=== PATIENT | female | born 1965 | race Caucasian/White ===

== ENCOUNTER 2018-05-14 17:07 | Inpatient (IN) | payer MEDICAID ==
[~2018-05-14] VITALS: Ht 157.5 cm; Wt 65.8 kg
[~2018-05-14 17:07] MED LIST: BAYER CHEWABLE81 MG PO; BRILINTA90 MG PO; CELEXA20 MG PO; COREG 3.1253.125 MG PO; KLOR-CON M2020 MEQ PO; LASIX80 MG PO; LISINOPRIL2.5 MG PO; METOPROLOL TART50 MG PO; NICODERM C1 PATCH .1 TD; PLAVIX75 MG PO
[2018-05-14] MEDS ORDERED: PROTONIX20 MG PO (17:13)
[2018-05-14] MEDS ORDERED: TRAZODONE HCL150 MG PO (17:13)
[2018-05-14] MEDS ORDERED: CRESTOR5 MG PO (17:13)
[2018-05-14] MEDS ORDERED: VALIUM5 MG PO (17:14)
[2018-05-14] MEDS ORDERED: ATIVAN0.5 MG PO (17:14)
[2018-05-14] MEDS ORDERED: EFFEXOR XR150 MG PO (17:15)
[2018-05-14 18:07] LABS: BASOPHILS 0.6 % (0-2); EOSINOPHILS 1.5 % (0-7); HEMATOCRIT 39.5 % (36.0-48.0); HEMOGLOBIN 13.3 g/dL (12-16); IMMATURE GRANULOCYTES 0.1 % (0-5); LYMPHOCYTES 43.2 % (15-50); MCH 29.3 pg (26.0-34.0); MCHC 33.7 g/dL (31.0-37.0); MEAN PLATELET VOLUME 10.6 fL (7.4-10.4); MONOCYTES 8.9 % (2-11); NEUTROPHILS 45.7 % (40-80); PLATELET COUNT 313 10x3/uL (130-400); RBC 4.54 10x6/uL (4.00-5.40); RDW 14.2 % (11.5-14.5); WBC 6.7 10x3/uL (4.8-10.8)
[2018-05-14 19:00] LABS: ALBUMIN 2.8 g/dL (3.4-5.0); ALKALINE PHOSPHATASE 157 U/L (46-116); ALT (SGPT) 23 U/L (10-68); BILIRUBIN - TOTAL 0.46 mg/dL (0.2-1.3); CALC OSMOLALITY 273 mosm/kg (275-300); CALCIUM 8.9 mg/dL (8.5-10.1); CARBON DIOXIDE 20.8 mmol/L (21.0-32.0); CHLORIDE - SERUM 100 mmol/L (98-107); CREATININE - SERUM 0.6 mg/dL (0.6-1.3); GLUCOSE 131 mg/dL (74-106); POTASSIUM - SERUM 3.5 mmol/L (3.5-5.1); PROTEIN - SERUM 7.7 g/dL (6.4-8.2); SODIUM 137 mmol/L (136-145); UREA NITROGEN 7 mg/dL (7-18); eGFR NON AFRICAN AMERICAN > 90 mL/min (90-120)
--- NOTE | 2018-05-14 19:00 | NUR ---
HAND-OFF REPORT GIVEN TO KATHLEEN MEJIAS
[2018-05-14 19:05] LABS: AMYLASE - SERUM 40 U/L (25-115); LIPASE 289 U/L (73-393); TROPONIN-I 0.019 ng/mL (0.000-0.060)
--- NOTE | 2018-05-14 20:16 | NUR ---
PT GIVEN WARM BLANKETS. AT BEDSIDE. WILL CONTINUE TO MONITOR.
[2018-05-14 21:01] LABS: CHOL - HDL RATIO 2.5 ratio (2.3-4.1)
[2018-05-15] VITALS (7 sets, daily range): BP systolic 116–136; BP diastolic 74–92; Ht 157.5 cm; Wt 65.8 kg
--- NOTE | 2018-05-15 05:20 | NUR ---
I have reviewed this patient and I concur with the Shift Assessment completed by the Licensed Practical Nurse today this shift.
--- NOTE | 2018-05-15 08:14 | NUR ---
PATIENT A/O X3. C/O INTENSE PAIN TO UPPER ABDOMEN. GIVEN 4MG MORPHINE SLOW IVP FOR SAME. WILL MONITOR. HAD APPROXIMATELY 50 CC EMESIS.
--- NOTE | 2018-05-15 11:06 | NUR ---
PT REFUSED ALL NEW ORDERED MEDS. STATES SHE WILL JUST THROW THEM UP. PT NOTED THROWING UP CLEAR/GREEN EMESIS. ZOFRAN GIVEN IV. NICOTINE PATCH TO R SHOULDER. CPOC.
--- NOTE | 2018-05-15 11:32 | NUR ---
PT SITTING UP IN BED. A/O X 4. UP AB NBA. L AC IV WITH NS @ 125. RM AIR. NORMAL SINUS ON TELE. INFORMED PT THAT WHEN SHE WENT TO THE BATHROOM, WE NEEDED A URINE SAMPLE, TO NOT DUMP HER URINE IN COMMODE. ZOFRAN GIVEN FOR NAUSEA. GREEN/CLEAR EMESIS NOTED. ZOFRAN GIVEN. NO EDEMA NOTED. BS 126, NO TREATMENT. WILL CPOC.
--- NOTE | 2018-05-15 12:27 | NUR ---
PT C/O PAIN IN ABD. STATES " IF FEELS LIKE SOMEONE IS DIGGING THEIR HANDS UNDER MY RIBS" MORPHINE GIVEN VIA IV IN L AC. PT NOTED DRY HEAVING. SAT PT UP IN BED SO SHE WOULDNT ASPIRATE. AT BEDSIDE.
[2018-05-15 12:46] LABS: UDS - AMPHET NEGATIVE QUAL (NEGATIVE); UDS - BARB NEGATIVE QUAL (NEGATIVE); UDS - BENZO POSITIVE QUAL (NEGATIVE); UDS - COCAINE NEGATIVE QUAL (NEGATIVE); UDS - OPIATE POSITIVE QUAL (NEGATIVE); UDS - PCP NEGATIVE QUAL (NEGATIVE); UDS - THC NEGATIVE QUAL (NEGATIVE)
[2018-05-15 12:52] LABS: APPEARANCE HAZY (CLEAR); BILIRUBIN NEGATIVE (NEGATIVE); COLOR YELLOW (YELLOW); GLUCOSE NEGATIVE (NEGATIVE); KETONE LARGE mg/dL (NEGATIVE); NITRITE NEGATIVE (NEGATIVE); PROTEIN 1+ mg/dL (NEGATIVE); SPECIFIC GRAVITY 1.015 (1.005-1.020); UROBILINOGEN NORMAL (NORMAL)
[2018-05-15 12:54] LABS: BACTERIA MODERATE /hpf (NONE SEEN); EPITHELIAL CELLS 0-5 /hpf (0-5); MUCUS <1+ /lpf (NONE SEEN); RED CELLS - URINE 0-5 /hpf (0-5); WHITE CELLS - URINE 0-5 /hpf (0-5)
--- NOTE | 2018-05-15 15:40 | NUR ---
PT REFUSES SCDS
--- NOTE | 2018-05-15 18:33 | NUR ---
I have reviewed this patient and I concur with the Shift Assessment completed by the Licensed Practical Nurse today this shift.
--- NOTE | 2018-05-15 19:17 | NUR ---
PT IN BED. DENIES NEEDS AT THIS TIME.
[2018-05-16] VITALS: BP 131/82
--- NOTE | 2018-05-16 01:19 | NUR ---
I have reviewed this patient and I concur with the Shift Assessment completed by the Licensed Practical Nurse today this shift.
[2018-05-16 04:00] VITALS: BP 143/85
[2018-05-16 06:43] LABS: CALCIUM 7.8 mg/dL (8.5-10.1); CARBON DIOXIDE 23.2 mmol/L (21.0-32.0); CHLORIDE - SERUM 104 mmol/L (98-107); CREATININE - SERUM 0.5 mg/dL (0.6-1.3); GLUCOSE 125 mg/dL (74-106); LIPASE 269 U/L (73-393); SODIUM 138 mmol/L (136-145); eGFR NON AFRICAN AMERICAN > 90 mL/min (90-120)
[2018-05-16 06:49] LABS: CALC OSMOLALITY 273 mosm/kg (275-300); POTASSIUM - SERUM 4.2 mmol/L (3.5-5.1); UREA NITROGEN 4 mg/dL (7-18)
[2018-05-16 07:08] LABS: HEMATOCRIT 35.7 % (36.0-48.0); HEMOGLOBIN 12.2 g/dL (12-16); MCH 29.9 pg (26.0-34.0); MCHC 34.2 g/dL (31.0-37.0); MCV 87.5 fL (80.0-100.0); MEAN PLATELET VOLUME 11.4 fL (7.4-10.4); PLATELET COUNT 300 10x3/uL (130-400); RBC 4.08 10x6/uL (4.00-5.40); RDW 14.9 % (11.5-14.5); WBC 5.8 10x3/uL (4.8-10.8)
--- NOTE | 2018-05-16 07:23 | NUR ---
PT LAYING IN BED RESTING. STATES SHE FEELS BETTER THIS MORNING. C/O BEING STUCK BY LAB MULTIPLE TIMES. NO COMPLAINTS OF N/V. IV TO L AC WITH MORPHINE BEACH EXPERT, PROCAL @ 50, NS @ 100. NO EDEMA NOTED. PT STILL REMAINS NPO. NO FURTHER CONCERNS AT THIS TIME. BED LOWERED AND LOCKED. CL IN REACH. WILL CPOC.
[2018-05-16 07:52] LABS: BASOPHILS 2 % (0-2); EOSINOPHILS 1 % (0-7); LYMPHOCYTES 43 % (15-50); MONOCYTES 7 % (2-11); NEUTROPHILS 47 % (40-80); PLATELET ESTIMATE NORMAL
[2018-05-16 08:00] VITALS: BP 139/72
--- NOTE | 2018-05-16 10:06 | NUR ---
ATIVAN GIVEN TO PT FOR ANXIETY. TOOK MEDS WITHOUT DIFFICULTY. NO FURTHER CONCERNS AT THIS TIME.
[2018-05-16 11:30] VITALS: BP 145/86
--- NOTE | 2018-05-16 12:00 | NUR ---
PT C/O NAUSEA/VOMITTING. PHENERGAN IM GIVEN TO L VENTROGLUTEAL.
--- NOTE | 2018-05-16 13:44 | NUR ---
I have reviewed this patient and I concur with the Shift Assessment completed by the Licensed Practical Nurse today this shift.
--- NOTE | 2018-05-16 15:24 | NUR ---
PT LAYING IN BED RESTING. DENIES N/V AT THIS TIME. FAMILY AT BEDSIDE. NO FURTHER CONCERNS AT THIS TIME. BED LOWERED AND LOCKED. CL IN REACH. WILL CPOC.
[2018-05-16 16:22] VITALS: BP 171/102
--- NOTE | 2018-05-16 19:23 | NUR ---
GREETED PATIENT AND INTRODUCED MYSELF HER NURSE. PATIENT IS LAYING IN BED RESTING QUIETLY. STATES PAIN LEVEL IS 4/10 ON 0-10 PAIN SCALE ENTIRE ABDOMINAL AREA.
[2018-05-16 19:38] VITALS: BP 147/93
--- NOTE | 2018-05-16 23:07 | NUR ---
PATIENT RESTING QUIETLY WATCHING TV. DENIES ANY NEEDS AT THIS TIME. CALL LIGHT IN REACH.
[2018-05-17] VITALS (7 sets, daily range): BP systolic 128–173; BP diastolic 72–95
--- NOTE | 2018-05-17 02:22 | NUR ---
ASSISTED PATIENT TO BATHROOM USING ONE PERSON ASSIST. PATIENT BACK TO BED AND REPOSITIONED FOR COMFORT. CALL LIGHT IN REACH.
[2018-05-17 12:18] LABS: BASOPHILS 0.5 % (0-2); EOSINOPHILS 2.6 % (0-7); HEMATOCRIT 35.2 % (36.0-48.0); HEMOGLOBIN 11.6 g/dL (12-16); LYMPHOCYTES 30.4 % (15-50); MEAN PLATELET VOLUME 10.3 fL (7.4-10.4); MONOCYTES 7.8 % (2-11); NEUTROPHILS 58.7 % (40-80); PLATELET COUNT 255 10x3/uL (130-400); RDW 14.5 % (11.5-14.5); WBC 5.5 10x3/uL (4.8-10.8)
[2018-05-17 12:29] LABS: CALC OSMOLALITY 273 mosm/kg (275-300); CALCIUM 8.2 mg/dL (8.5-10.1); CARBON DIOXIDE 22.3 mmol/L (21.0-32.0); CHLORIDE - SERUM 102 mmol/L (98-107); CREATININE - SERUM 0.5 mg/dL (0.6-1.3); GLUCOSE 149 mg/dL (74-106); LIPASE 252 U/L (73-393); SODIUM 137 mmol/L (136-145); UREA NITROGEN 3 mg/dL (7-18); eGFR NON AFRICAN AMERICAN > 90 mL/min (90-120)
[2018-05-17 12:33] LABS: POTASSIUM - SERUM 3.2 mmol/L (3.5-5.1)
--- NOTE | 2018-05-17 17:56 | NUR ---
PT. IN BED, SKIN W/D TO TOUCH, COLOR PINK, RESP. REGULAR AND EVEN AT 18. IV INFUSING NORMAL SALINE AT 100 AND PROCALAMINE INFUSING AT 50. TELEMTRY INTACT AND SR'S 72.LAST BLOOD SUGAR WAS 132. ABDOMEN SOFT, PT. REMAINS NPO. ASSAULT AMPHIBIOUS VEHICLE OFFICER MORPHINE HOLDING PT. WELL. C/L WITHIN REACH AND SR'S UP X'S 2.
--- NOTE | 2018-05-17 21:10 | NUR ---
REST IN BED, DENIES NEEDS AT THIS TIME, CALL LIGHT IN REACH.
--- NOTE | 2018-05-18 01:43 | NUR ---
REST IN BED, RESP EVEN, NO DISTRESS, CALL LIGHT IN REACH.
[2018-05-18 04:00] VITALS: BP 132/86
--- NOTE | 2018-05-18 06:23 | NUR ---
I have reviewed this patient and I concur with the Shift Assessment completed by the Licensed Practical Nurse today this shift.
[2018-05-18 08:45] LABS: BASOPHILS 0.2 % (0-2); EOSINOPHILS 3.2 % (0-7); HEMATOCRIT 34.6 % (36.0-48.0); HEMOGLOBIN 11.4 g/dL (12-16); IMMATURE GRANULOCYTES 0.2 % (0-5); MCH 28.9 pg (26.0-34.0); MCHC 32.9 g/dL (31.0-37.0); MCV 87.8 fL (80.0-100.0); MEAN PLATELET VOLUME 10.1 fL (7.4-10.4); MONOCYTES 6.3 % (2-11); NEUTROPHILS 53.1 % (40-80); PLATELET COUNT 257 10x3/uL (130-400); RBC 3.94 10x6/uL (4.00-5.40); RDW 14.2 % (11.5-14.5); WBC 4.9 10x3/uL (4.8-10.8)
[2018-05-18 09:02] LABS: CALC OSMOLALITY 270 mosm/kg (275-300); CALCIUM 8.1 mg/dL (8.5-10.1); CARBON DIOXIDE 23.1 mmol/L (21.0-32.0); CHLORIDE - SERUM 102 mmol/L (98-107); CREATININE - SERUM 0.4 mg/dL (0.6-1.3); GLUCOSE 139 mg/dL (74-106); POTASSIUM - SERUM 3.3 mmol/L (3.5-5.1); SODIUM 136 mmol/L (136-145); eGFR NON AFRICAN AMERICAN > 90 mL/min (90-120)
[2018-05-18 09:08] LABS: UREA NITROGEN 4 mg/dL (7-18)
[2018-05-18 09:12] VITALS: BP 143/87
--- NOTE | 2018-05-18 11:17 | NUR ---
PT REQ AND REC'D PRN ATIVAN FOR ANXIETY AT THIS TIME. WCTM.
[2018-05-18 12:30] VITALS: BP 136/85
--- NOTE | 2018-05-18 12:44 | MORECARE ---
CASE MANAGEMENT DISCHARGE SUMMARY PATIENT: MIC RIVERA UNIT: [id number] ADM DATE: 05/14/18 AGE: 52 : 65 SEX: F ROOM/BED: D.1202 AUTHOR: DRISS WHITTEN PHYSICIAN: REFERRING PHYSICIAN: DELILAH WILLIAM MD DATE OF SERVICE: 05/18/18 Discharge Plan Patient Name: MIC RIVERA [facility] [facility] 1965 Planned Disposition: Home Anticipated Discharge Date: Discharge Date: Expected LOS: Initial Reviewer: [email or web address] Initial Review Date: 05/18/2018 Generated: 05/18/18 1:44 pm DCPIA - Discharge Planning Initial Assessment Updated by [id number]: Radha Arias on 05/18/18 12:44 pm * Is the patient Alert and Oriented? Yes * PCP [facility] * Pharmacy [facility] * Preadmission Environment Home with Family * ADLs Independent * Equipment None * List name and contact numbers for known caregivers / representatives who currently or will assist patient after discharge: JUANSHINE, [phone] * Community resources currently utilized None * Additional services required to return to the preadmission environment? No * Can the patient safely return to the preadmission environment? Yes * Has this patient been hospitalized within the prior 30 days at any hospital? Yes Patient Name: MIC RIVERA Page [phone] at 1244 All edits/amendments must be made on the electronic document DICTATION DATE: 05/18/18 124 PERSONAL PROPERTY ASSESSOR: NICHELLE 05/18/18 1244 RPT#: [id number] DC DATE: STATUS: ADM IN [facility] [address] [place] [address] END OF REPORT
--- NOTE | 2018-05-18 12:53 | MORECARE ---
CASE MANAGEMENT DISCHARGE SUMMARY PATIENT: MIC RIVERA UNIT: [id number] ADM DATE: 05/14/18 AGE: 52 : 65 SEX: F ROOM/BED: D.1202 AUTHOR: DRISS WHITTEN PHYSICIAN: REFERRING PHYSICIAN: DELILAH WILLIAM MD DATE OF SERVICE: 05/18/18 Discharge Plan Patient Name: MIC RIVERA Facility: [facility]:[place] : 1965 Planned Disposition: Home Anticipated Discharge Date: Discharge Date: Expected LOS: Initial Reviewer: [email or web address] Initial Review Date: 05/18/2018 Generated: 05/18/18 1:52 pm Comments DCP- Discharge Planning Updated by [email or web address]: Radha Arias on 05/18/18 11:[address] Patient Name: MIC RIVERA Admission Status: ER Accout number: [id number] Admission Date: 05-14-2018 : 1965 Admission Diagnosis: Attending: DELILAH WILLIAM Current LOS: 4 Anticipated DC Date: Planned Disposition: Home Primary Insurance: [employer] PRVT OPTIONS MONSTER Discharge Planning Comments: CM MET WITH PATIENT ABOUT DC PLANNING/NEEDS. STATES PLANS TO DC TO HOME WITH . DENIES NEEDS AT THIS TIME. CM WILL FOLLOW AND ASSIST NEEDED WITH DC PLANNING/NEEDS. Inseam Trimming Machine Operator: Radha Arias DCPIA - Discharge Planning Initial Assessment Updated by [email or web address]: Radha Arias on 05/18/18 12:44 pm * Is the patient Alert and Oriented? Yes * PCP [facility] * [facility] * Preadmission Environment Home with Family * ADLs Independent * Equipment None * List name and contact numbers for known caregivers / representatives who currently or will assist patient after discharge: JUAN, [phone] * Community resources currently utilized None * Additional services required to return to the preadmission environment? No * Can the patient safely return to the preadmission environment? Yes * Has this patient been hospitalized within the prior 30 days at any hospital? Yes Last DP export: 05/18/18 11:44 a Patient Name: MIC RIVERA Page [phone] at 1253 All edits/amendments must be made on the electronic document DICTATION DATE: 05/18/18 125 CAFE SERVER: NICHELLE 05/18/18 125 RPT#: [id number] CO DATE: STATUS: ADM IN [facility] [address] [place] [address] END OF REPORT
--- NOTE | 2018-05-18 14:34 | NUR ---
Pt remain NPO >/=3days Pt is on procalamine @50 providing 294 calories and 35gm protein REC: May want to consider TPN to better meet pt nutrition needs RD following
--- NOTE | 2018-05-18 16:55 | NUR ---
ATTEMPTED TO REPLACE POTASSIUM WITH 10MEQ/100 ML RIDERS BUT PATIENT WILL NOT TOLERATE IV POTASSIUM. REPORTS BAD BURNING AND REFUSES. SAYS SHE WOULD RATHER TRY PO K+.
[2018-05-18 17:18] VITALS: BP 156/78
--- NOTE | 2018-05-18 19:50 | NUR ---
LYING IN BED WATCHING TV. ANXIOUS AND RESTLESS. STATES SHE IS HURTING BAD AND IS NAUSEATED. WHEN GOING BACK INTO ROOM TO GIVE ZOFRAN, PT STATES THE DR TOLD HER SHE COULD HAVE PHENERGAN. STATES SHE VOMITED GREEN EMESIS TODAY. RESP EVEN AND NONLABORED. ABD DISTENDED BUT SOFT. BS HYPOACTIVE X4 QUADS. TELEMETRY SHOWS SR WITH RATE OF 90'S. NS @ 100 ML/HR INFUSING IN LT AC WITH PROCAL @ 75 ML/HR AND MORPHINE TECHNICIAN. SR ELEVATED X2. CL IN REACH.
[2018-05-18 20:00] VITALS: BP 139/85
--- NOTE | 2018-05-18 22:50 | NUR ---
MEDICATED WITH PHENERGAN SUPP FOR NAUSEA. PT HAD REFUSED KCL RIDERS BECAUSE SHE STATED THAT IT HURT TOO BAD. PT IS NPO AND CANNOT TAKE PO KCL.
[2018-05-19] VITALS: BP 150/84
--- NOTE | 2018-05-19 01:46 | NUR ---
RESTING WITH EYES CLOSED. RESP EVEN AND NONLABORED. NO DISTRESS. CL IN REACH.
[2018-05-19 04:30] VITALS: BP 133/86
[2018-05-19 07:00] LABS: BASOPHILS 0.5 % (0-2); EOSINOPHILS 3.8 % (0-7); HEMATOCRIT 35.1 % (36.0-48.0); HEMOGLOBIN 11.7 g/dL (12-16); IMMATURE GRANULOCYTES 0.3 % (0-5); LYMPHOCYTES 47.1 % (15-50); MCH 28.8 pg (26.0-34.0); MCHC 33.3 g/dL (31.0-37.0); MCV 86.5 fL (80.0-100.0); MEAN PLATELET VOLUME 9.8 fL (7.4-10.4); MONOCYTES 9.5 % (2-11); NEUTROPHILS 38.8 % (40-80); PLATELET COUNT 244 10x3/uL (130-400); RBC 4.06 10x6/uL (4.00-5.40); RDW 14.3 % (11.5-14.5); WBC 3.9 10x3/uL (4.8-10.8)
[2018-05-19 07:22] LABS: CALC OSMOLALITY 272 mosm/kg (275-300); CALCIUM 7.9 mg/dL (8.5-10.1); CHLORIDE - SERUM 102 mmol/L (98-107); CREATININE - SERUM 0.4 mg/dL (0.6-1.3); GLUCOSE 130 mg/dL (74-106); POTASSIUM - SERUM 3.4 mmol/L (3.5-5.1); SODIUM 137 mmol/L (136-145); UREA NITROGEN 3 mg/dL (7-18); eGFR NON AFRICAN AMERICAN > 90 mL/min (90-120)
--- NOTE | 2018-05-19 07:30 | NUR ---
INITIAL ROUNDING ON THE PATIENT, CAREGIVERS INTRODUCED. PATIENT REQUESTING ZOFRAN AND REPORTS PAIN OF 8/10 IN UPPER ABD. EYEWEAR MANUFACTURING TECH INFUSING.
[2018-05-19 08:25] VITALS: BP 127/82
--- NOTE | 2018-05-19 10:56 | NUR ---
DISCUSSED THE PATIENTS MEDICATION LIST INCLUDING COREG, PLAVIX, ASA AMONG OTHERS ORDERED. CONCERNED THE PATIENT HAS BEEN NPO SINCE 05/[address] GONZALES ORDERED TO KEEP THE PATIENT NPO INCLUDING MEDICATIONS. ALSO INFORMED THE DOCTOR OF THE PATIENTS K+ LEVEL OF 3.4 AND THE FACT THE PATIENT REFUSES IVPB RIDER OF K+.
[2018-05-19 12:08] VITALS: BP 156/89
[2018-05-19 16:45] VITALS: BP 158/91
[2018-05-19 20:00] VITALS: BP 138/88
--- NOTE | 2018-05-19 23:29 | NUR ---
1945) REC'D. CHGE OF SHIFT IN BATHROOM. RATING ABDOMINAL PAIN 10 ALL DAY. DENIES NAUSEA AT PRESENT TIME. ABD DISTENDED BUT PALABLE BOWEL SOUNDS ALL QUAD.REINFORCED NPO WAS REQUIRING ABOUT ORAL MEDS.WILL CONTINUE TO MONITOR FOR ANY CHGES AND FOLLOW CURRENT PLAN OF CARE
[2018-05-20] VITALS: BP 141/81
--- NOTE | 2018-05-20 02:49 | NUR ---
I have reviewed this patient and I concur with the Shift Assessment completed by the Licensed Practical Nurse today this shift.
[2018-05-20 04:00] VITALS: BP 147/98
--- NOTE | 2018-05-20 07:07 | NUR ---
INITIAL ROUNDING ON THE PATIENT, SHE IS RESTING IN BED, MORPHINE COAL CHUTE WORKER INFUSING WELL PROCAL, AND NS. PATIENT REPORTS PAIN OF 3/10. NO SOB NOTED.
[2018-05-20 08:42] LABS: BASOPHILS 0.2 % (0-2); HEMATOCRIT 38.1 % (36.0-48.0); IMMATURE GRANULOCYTES 0.2 % (0-5); LYMPHOCYTES 39.5 % (15-50); MCH 29.2 pg (26.0-34.0); MCHC 34.1 g/dL (31.0-37.0); MCV 85.6 fL (80.0-100.0); MEAN PLATELET VOLUME 10.1 fL (7.4-10.4); MONOCYTES 9.6 % (2-11); NEUTROPHILS 48.5 % (40-80); RBC 4.45 10x6/uL (4.00-5.40); RDW 14.5 % (11.5-14.5); WBC 4.5 10x3/uL (4.8-10.8)
[2018-05-20 08:47] LABS: PLATELET COUNT 172 10x3/uL (130-400)
[2018-05-20 09:00] LABS: CALC OSMOLALITY 267 mosm/kg (275-300); CALCIUM 8.3 mg/dL (8.5-10.1); CARBON DIOXIDE 18.9 mmol/L (21.0-32.0); CHLORIDE - SERUM 101 mmol/L (98-107); CREATININE - SERUM 0.3 mg/dL (0.6-1.3); GLUCOSE 136 mg/dL (74-106); POTASSIUM - SERUM 3.6 mmol/L (3.5-5.1); SODIUM 135 mmol/L (136-145); eGFR NON AFRICAN AMERICAN > 90 mL/min (90-120)
[2018-05-20 09:06] LABS: UREA NITROGEN 2 mg/dL (7-18)
[2018-05-20 12:37] VITALS: BP 137/72
--- NOTE | 2018-05-20 14:53 | NUR ---
Nutrition Follow Up: Chart reviewed. Pt is NPO x 6 days. BM: 05/17/18 Wt loss noted Labs reviewed Meds noted including Procalamine @ 50 ml/hr Rec advancing WALTER as soon as medically feasible. Rec consider increasing Procalamine to 75 ml/hr. RD following.
[2018-05-20 18:55] VITALS: BP 144/88
--- NOTE | 2018-05-20 22:43 | NUR ---
NG TUBE #[address] WITH ONE TRY AND PT IS ON LOW INTERMITTEN SUCTION PER MD ORDERSL SHE WAS GIVEN ATIVAN PRIOR TO INSERTION AND DID WELL. SHE REFUSED INSULIN FOR HER BLOOD SUGAR WHICH WAS 152 AND SHOULD HAVE BEEN 2 UNITS BUT SHE IS NPO AT THIS TIME.
[2018-05-21 00:17] VITALS: BP 143/92
[2018-05-21 05:30] VITALS: BP 145/87
[2018-05-21 06:24] LABS: BASOPHILS 0.2 % (0-2); EOSINOPHILS 2.5 % (0-7); HEMOGLOBIN 11.9 g/dL (12-16); LYMPHOCYTES 30.5 % (15-50); MCH 28.9 pg (26.0-34.0); MONOCYTES 9.9 % (2-11); NEUTROPHILS 56.9 % (40-80); RBC 4.12 10x6/uL (4.00-5.40); RDW 14.4 % (11.5-14.5); WBC 4.9 10x3/uL (4.8-10.8)
[2018-05-21 06:29] LABS: PLATELET COUNT 260 10x3/uL (130-400)
[2018-05-21 06:49] LABS: ALBUMIN 2.5 g/dL (3.4-5.0); ALKALINE PHOSPHATASE 131 U/L (46-116); ALT (SGPT) 19 U/L (10-68); BILIRUBIN - DIRECT 0.18 mg/dL (0.00-0.30); BILIRUBIN - INDIRECT 0.26 mg/dL (0.00-1.00); BILIRUBIN - TOTAL 0.44 mg/dL (0.2-1.3); CALC OSMOLALITY 269 mosm/kg (275-300); CALCIUM 8.2 mg/dL (8.5-10.1); CARBON DIOXIDE 19.9 mmol/L (21.0-32.0); CHLORIDE - SERUM 101 mmol/L (98-107); CREATININE - SERUM 0.4 mg/dL (0.6-1.3); GLUCOSE 153 mg/dL (74-106); LIPASE 278 U/L (73-393); SODIUM 135 mmol/L (136-145); UREA NITROGEN 4 mg/dL (7-18); eGFR NON AFRICAN AMERICAN > 90 mL/min (90-120)
[2018-05-21 06:50] LABS: POTASSIUM - SERUM 2.9 mmol/L (3.5-5.1)
--- NOTE | 2018-05-21 07:00 | NUR ---
INITIAL ROUNDING ON THE PATIENT, SHE IS RESTING IN BED, LIGHTS AND TV OFF. NG TUBE IN PLACE TO LIWS, WHOLESALE ACCOUNT EXECUTIVE BUTTON IN PATIENTS HAND, IVF INFUSING ORDERED.
--- NOTE | 2018-05-21 07:13 | NUR ---
CALLED AND REPORTED THE LOW K+ OF 2.9 TO NEVIN DE LA ROSA AND THE FACT THE PATIENT IS NPO AND REFUSING THE IV K+ RIDER, NO NEW ORDER RECVD
[2018-05-21 08:10] VITALS: BP 142/92
--- NOTE | 2018-05-21 10:32 | NUR ---
CALLED THE ANSWERING SERVICE FOR DR WILLIAM OFFICE AND SPOKE TO PATRIA, REQUESTING A RETURN CALL
[2018-05-21 16:27] VITALS: BP 149/98
--- NOTE | 2018-05-21 16:39 | NUR ---
ANNABEL FROM DR MARROQUIN OFFICE RETURNED THE CALL AND GAVE VERBAL ORDER TO LEAVE OUT THE NG TUBE. THE PATIENT UPDATED
[2018-05-21 20:26] VITALS: BP 121/79
[2018-05-22] VITALS: BP 141/95
--- NOTE | 2018-05-22 02:05 | NUR ---
PT HAS BEEN MUCH QUIETER THIS EVENING. SHE ADMITTED SHE WAS SLEEPING ALOT AFTER BEING UP ALL NIGHT THE NIGHT BEFORE. SO FAR SHE HAS RECEIVED ATIVAN ONCE AND ZOFRAN TWICE TONIGHT. HER BLOOD PRESSURE MED AND DESERYL WERE OFFERED TO HER BECAUSE HER B/P IS STARTING TO GET HIGHER AND THE DESERYL IS HER ROUTINE NIGHT MED. SHE DID NOT TAKE THEM.WE HAVE NOT SEEN HER VOMITING BUT SHE IS STILL STATING SHE IS NAUSEATED. AT THIS TIME SHE IS ASLEEP WITH NO DISTRESS NOTED.
[2018-05-22 04:00] VITALS: BP 144/80
--- NOTE | 2018-05-22 07:38 | NUR ---
CALLED ICU AND THEY STATED IF ER NURSE CAN'T GET IV THEN THEY WON'T BE ABLE TO, BUT THEY WILL ASK AROUND AND SEE IF SOMEONE WILL TRY.
[2018-05-22 08:13] VITALS: BP 140/94
--- NOTE | 2018-05-22 09:00 | NUR ---
PT HAVING SEVERE NAUSEA AND ONLY WANTS SOFRAN IV. REFUSING PHENGRAN RECTALLY. PT STILL NEEDS IV REPLACED WITH NEW ONE.
--- NOTE | 2018-05-22 09:34 | NUR ---
SPOKE WITH ADVERTISING STRATEGIST ABOUT PT NEEDING IV AND SHE STATES TO SPEAK WITH MD AND SEE IF THEY WANT A CENTRAL LINE PLACED.
--- NOTE | 2018-05-22 11:17 | NUR ---
SPOKE WITH DR. GONZALES THAT PT IS NEEDING A CENTRAL LINE SINCE NO ONE IS HERE THIS WEEKEND TO DO A PICCLINE OR MIDLINE. SHE STATES TO PLACE SURGICAL CONSULT FOR CENTRAL LINE. I VERBALIZED UNDERSTANDING.
--- NOTE | 2018-05-22 11:44 | NUR ---
SPOKE WITH DR. VALERA AND HE STATES IT WILL BE LATE BEFORE HE CAN COME DO THE CENTRAL LINE BUT HE WILL COME AND DO IT. HE ALSO STATES HE NEEDS AT 16CM CENTRAL LINE KIT, SIZE 7 GLOVES, AND EXTRA LIDOCAINE. I VERBALIZED UNDERSTANDING.
[2018-05-22 12:10] VITALS: BP 139/88
--- NOTE | 2018-05-22 12:10 | NUR ---
LEFT AC 22G IV INFILTRATED AND DC'D WITH CATH INTACT.
--- NOTE | 2018-05-22 12:20 | NUR ---
CONSENTS SIGNED FOR CENTRAL LINE PLACEMENT.
--- NOTE | 2018-05-22 12:52 | NUR ---
UNABLE TO SITE AN IV X 2 ATTEMPTS TO RIGHT ARM. SWELLING NOTED TO LEFT ARM FROM PREVIOUS IV.
--- NOTE | 2018-05-22 15:45 | NUR ---
[facility] ER NURSE INSERTED 22G IV IN RIGHT AC.
[2018-05-22 20:22] VITALS: BP 149/97
--- NOTE | 2018-05-22 20:26 | NUR ---
PT C/O NAUSEA, ZOFRAN GIVEN ORDERED.
[2018-05-23] VITALS (7 sets, daily range): BP systolic 132–165; BP diastolic 79–100
--- NOTE | 2018-05-23 01:10 | NUR ---
REST IN BED, RESP EVEN, NO DISTRESS, CALL LIGHT IN REACH.
--- NOTE | 2018-05-23 03:41 | NUR ---
I have reviewed this patient and I concur with the Shift Assessment completed by the Licensed Practical Nurse today this shift.
--- NOTE | 2018-05-23 04:26 | NUR ---
REST IN BED, CALL LIGHT IN REACH.
[2018-05-23 06:26] LABS: BASOPHILS 0.4 % (0-2); EOSINOPHILS 2.5 % (0-7); HEMATOCRIT 36.3 % (36.0-48.0); HEMOGLOBIN 12.4 g/dL (12-16); IMMATURE GRANULOCYTES 0.2 % (0-5); LYMPHOCYTES 31.9 % (15-50); MCH 28.7 pg (26.0-34.0); MCHC 34.2 g/dL (31.0-37.0); MEAN PLATELET VOLUME 9.8 fL (7.4-10.4); MONOCYTES 9.7 % (2-11); NEUTROPHILS 55.3 % (40-80); PLATELET COUNT 235 10x3/uL (130-400); RBC 4.32 10x6/uL (4.00-5.40); RDW 14.3 % (11.5-14.5); WBC 5.3 10x3/uL (4.8-10.8)
[2018-05-23 08:11] LABS: ALBUMIN 2.6 g/dL (3.4-5.0); ALKALINE PHOSPHATASE 145 U/L (46-116); AMYLASE - SERUM 46 U/L (25-115); BILIRUBIN - TOTAL 0.71 mg/dL (0.2-1.3); CALCIUM 8.4 mg/dL (8.5-10.1); CHLORIDE - SERUM 102 mmol/L (98-107); CREATININE - SERUM 0.4 mg/dL (0.6-1.3); GLUCOSE 129 mg/dL (74-106); LIPASE 351 U/L (73-393); PROTEIN - SERUM 7.2 g/dL (6.4-8.2); SODIUM 136 mmol/L (136-145); eGFR NON AFRICAN AMERICAN > 90 mL/min (90-120)
[2018-05-23 08:15] LABS: CALC OSMOLALITY 271 mosm/kg (275-300); POTASSIUM - SERUM 3.4 mmol/L (3.5-5.1); UREA NITROGEN 7 mg/dL (7-18)
[2018-05-23 08:31] LABS: ALT (SGPT) 23 U/L (10-68)
--- NOTE | 2018-05-23 11:24 | NUR ---
DR. VALERA STATES TO HAVE VASCULAR ASCESS NURSE PLACE PICC LINE TOMORROW SINCE PT NOW HAS AN IV.
--- NOTE | 2018-05-23 13:55 | NUR ---
GAVE 4MG OF ZOFRAN PER PT REQUEST. I AGREE WITH CLOTH CLASSER'S ASSESSMENT. PT DENIES ANY OTHER NEEDS AT THIS TIME. FAMILY AT BEDSIDE, NAD NOTED.
--- NOTE | 2018-05-23 14:39 | NUR ---
PT IN BED. ALERT AND ORIENTED. FAMILY AT BEDSIDE. PT HAS NO FURTHER NEEDS AT THIS TIME. BED LOW. CL IN REACH.
--- NOTE | 2018-05-23 17:06 | NUR ---
SPOKE WITH DR. JOHNSTON ABOUT PT BEING ABLE TO TAKE PO MEDICATION SHE STATES SHE IS MORE DR. VO PT AND SHE WANTS TO LEAVE THAT UP TO HER TOMORROW AFTER PT HAS CT SCAN.
--- NOTE | 2018-05-23 19:03 | NUR ---
PT IN BED. REQUESTS ATIVAN WHEN IT IS DUE. INFORMED PT OF POSSIBLE PICC PLACEMENT TONIGHT. CALLED KATIE IN ER WHO SAID SHE WOULD PLACE IT IF SHE HAS TIME TONIGHT.
--- NOTE | 2018-05-24 05:00 | NUR ---
I have reviewed this patient and I concur with the Shift Assessment completed by the Licensed Practical Nurse today this shift.
--- NOTE | 2018-05-24 05:15 | NUR ---
KATIE IN ER WAS NOT ABLE TO MAKE IT TO FLOOR FOR PICC PLACEMENT. WILL WAIT FOR MEETA IN ER TO PLACE PICC TODAY.
[2018-05-24 06:13] VITALS: BP 124/71
[2018-05-24 06:50] LABS: BASOPHILS 0.4 % (0-2); HEMOGLOBIN 12.6 g/dL (12-16); IMMATURE GRANULOCYTES 0.2 % (0-5); LYMPHOCYTES 29.6 % (15-50); MCHC 34.1 g/dL (31.0-37.0); MCV 85.1 fL (80.0-100.0); MEAN PLATELET VOLUME 10.2 fL (7.4-10.4); MONOCYTES 8.2 % (2-11); NEUTROPHILS 59.6 % (40-80); PLATELET COUNT 279 10x3/uL (130-400); RBC 4.35 10x6/uL (4.00-5.40); RDW 14.5 % (11.5-14.5)
[2018-05-24 07:08] LABS: ALBUMIN 2.8 g/dL (3.4-5.0); ALKALINE PHOSPHATASE 150 U/L (46-116); ALT (SGPT) 21 U/L (10-68); BILIRUBIN - TOTAL 0.78 mg/dL (0.2-1.3); CALC OSMOLALITY 273 mosm/kg (275-300); CALCIUM 8.9 mg/dL (8.5-10.1); CARBON DIOXIDE 19.5 mmol/L (21.0-32.0); CHLORIDE - SERUM 99 mmol/L (98-107); CREATININE - SERUM 0.5 mg/dL (0.6-1.3); GLUCOSE 139 mg/dL (74-106); POTASSIUM - SERUM 3.1 mmol/L (3.5-5.1); PROTEIN - SERUM 7.6 g/dL (6.4-8.2); SODIUM 137 mmol/L (136-145); UREA NITROGEN 8 mg/dL (7-18); eGFR NON AFRICAN AMERICAN > 90 mL/min (90-120)
[2018-05-24 08:30] VITALS: BP 129/87
--- NOTE | 2018-05-24 11:16 | NUR ---
PATIENT IN BED,SKIN W/D TO TOUCH, COLOR PALE, RESP. REGULAR AND EVEN AT 18. MIDLINE PLACED PER METEA BAUER RN IN RIGHT UPPER INNER ARM. MS SQL DEVELOPER MORPHINE IN USE AND HOLDING PATIENT WELL. C/O NAUSEA AT 10:45 AND ZOFRAN 4MG IV GIVEN. C/L WITHIN REACH AND SR'S UP X'S 2.
[2018-05-24 12:00] VITALS: BP 145/88
--- NOTE | 2018-05-24 13:21 | NUR ---
PATIENT LEFT VIA W/C FOR CT SCAN OF ABDOMEN WITHOUT CONTRAST, IV FLUSHED, AT BEDSIDE.
--- NOTE | 2018-05-24 13:37 | NUR ---
Nutrition Follow up- Pt is now NPO >/=9days Procalamine continues at 50mL/hour Spoke with nursing about nutrition needs Pt now has a midline placed-pt reports plans to start TPN-no orders as of yet Will continue to monitor and follow up
--- NOTE | 2018-05-24 14:07 | NUR ---
PATIENT RETURNE TO ROOM [address], DENIES ANY C/O PAIN WHEN ASKED. AT BEDSIDE AND SR'S UP X'S 2.
[2018-05-24 16:00] VITALS: BP 131/82
--- NOTE | 2018-05-24 19:45 | NUR ---
PATIENT RESTING IN BED WITH NO S/S OF DISTRESS. HELD ALL PO MEDS EXCEPT FOR CARAFATE PER DR. MARROQUIN. PATIENT DENIES OTHER NEEDS AT THIS TIME. BED IN LOWEST POSITION AND CALL LIGHT WITHIN REACH. ENCOURAGED THE PATIENT TO CALL IF SHE HAS NEEDS. WILL CONTINUE TO MONITOR.
[2018-05-24 21:21] VITALS: BP 157/104
[2018-05-25 00:20] VITALS: BP 150/92
[2018-05-25 05:46] VITALS: BP 156/90
--- NOTE | 2018-05-25 07:00 | NUR ---
INITIAL ROUNDING ON THE PATIENT, SHE IS AWAKE AND NERVOUS ABOUT THE EGD THAT IS SCHEDULED FOR TODAY, REPORTING PAIN OF 3/10, NO SOB NOTED. PATIENT INSTRUCTED TO REMOVE HER PANTS AND UNDERWEAR TO PREPARE FOR PROCEDURE.
[2018-05-25 08:06] LABS: BASOPHILS 0.5 % (0-2); EOSINOPHILS 1.7 % (0-7); HEMATOCRIT 32.7 % (36.0-48.0); HEMOGLOBIN 11.3 g/dL (12-16); IMMATURE GRANULOCYTES 0.7 % (0-5); LYMPHOCYTES 32.9 % (15-50); MCH 28.8 pg (26.0-34.0); MCHC 34.6 g/dL (31.0-37.0); MCV 83.2 fL (80.0-100.0); MEAN PLATELET VOLUME 9.5 fL (7.4-10.4); MONOCYTES 7.6 % (2-11); NEUTROPHILS 56.6 % (40-80); PLATELET COUNT 250 10x3/uL (130-400); RBC 3.93 10x6/uL (4.00-5.40); RDW 14.2 % (11.5-14.5); WBC 6.1 10x3/uL (4.8-10.8)
[2018-05-25 08:26] LABS: ALBUMIN 2.6 g/dL (3.4-5.0); ALKALINE PHOSPHATASE 136 U/L (46-116); ALT (SGPT) 17 U/L (10-68); BILIRUBIN - TOTAL 0.51 mg/dL (0.2-1.3); CARBON DIOXIDE 18.5 mmol/L (21.0-32.0); CHLORIDE - SERUM 100 mmol/L (98-107); CREATININE - SERUM 0.4 mg/dL (0.6-1.3); GLUCOSE 147 mg/dL (74-106); PROTEIN - SERUM 6.4 g/dL (6.4-8.2); SODIUM 135 mmol/L (136-145); eGFR NON AFRICAN AMERICAN > 90 mL/min (90-120)
[2018-05-25 08:28] LABS: CALC OSMOLALITY 269 mosm/kg (275-300); POTASSIUM - SERUM 3.7 mmol/L (3.5-5.1); UREA NITROGEN 5 mg/dL (7-18)
[2018-05-25 08:33] VITALS: BP 175/98
--- NOTE | 2018-05-25 09:41 | NUR ---
PATIENT ARRIVED BACK TO THE FLOOR VIA BED, COMPLAINING OF NAUSEA. PATIENT IS AWAKE AND ALERT.
--- NOTE | 2018-05-25 10:09 | NUR ---
Nutrition Follow up: Pt to EGD this morning and diet has advanced to clear liquid Spoke with pt about nutriton and she has some nausea but is ready to try liquids Nursing reports pt will have to be nausea free for 1 hour prior to liquid diet Procalamine has been increased to 75mL/hour Nursing to give Zofran RD following
--- NOTE | 2018-05-25 16:40 | MORECARE ---
CASE MANAGEMENT DISCHARGE SUMMARY PATIENT: MIC RIVERA UNIT: [id number] ADM DATE: 05/14/18 AGE: 52 : 65 SEX: F ROOM/BED: D.1202 AUTHOR: FISH,DOC PHYSICIAN: REFERRING PHYSICIAN: DELILAH WILLIAM MD DATE OF SERVICE: 05/25/18 Discharge Plan Patient Name: MIC RIVERA Facility: [facility]:[place] : 1965 Planned Disposition: Home Anticipated Discharge Date: Discharge Date: Expected LOS: Initial Reviewer: [email or web address] Initial Review Date: 05/18/2018 Generated: 05/25/18 5:40 pm Comments DCP- Discharge Planning Updated by [email or web address]: Madelin Stone on 05/25/18 3:[address] CM received order to speak with patient / family about LTAC placement for TPN. Patient is not on TPN at this time. She is on a clear liquid diet. CM spoke with patient and family about order to discuss LTAC in case patient ended up on TPN. CM explained LTAC services and Home Health services. Patient and spouse verbalized understanding and at this time do not want to make any decisions about LTAC, but agree to consider it if/when the patient gets TPN. CM will continue to follow and assist as needed with discharge planning / needs. DCP- Discharge Planning Updated by [id number]: Radha Arias on 05/18/18 11:[address] Patient Name: MIC RIVERA Admission Status: ER Accout number: [id number] Admission Date: 05-14-2018 : 1965 Admission Diagnosis: Attending: DELILAH WILLIAM Current LOS: 4 Anticipated DC Date: Planned Disposition: Home Primary Insurance: [employer] PRVT OPTIONS MONSTER Discharge Planning Comments: CM MET WITH PATIENT ABOUT DC PLANNING/NEEDS. STATES PLANS TO DC TO HOME WITH . DENIES NEEDS AT THIS TIME. CM WILL FOLLOW AND ASSIST NEEDED WITH DC PLANNING/NEEDS. Resource Development Manager: Radha Arias DCPIA - Discharge Planning Initial Assessment Updated by [id number]: Radha Arias on 05/18/18 12:44 pm * Is the patient Alert and Oriented? Yes * PCP [facility] * Pharmacy [facility] * Preadmission Environment Home with Family * ADLs Independent * Equipment None * List name and contact numbers for known caregivers / representatives who currently or will assist patient after discharge: JUAN,SHINE, [phone] * Community resources currently utilized None * Additional services required to return to the preadmission environment? No * Can the patient safely return to the preadmission environment? Yes * Has this patient been hospitalized within the prior 30 days at any hospital? Yes Last DP export: 05/18/18 11:53 a Patient Name: MIC RIVERA Page [id number] at 1640 All edits/amendments must be made on the electronic document DICTATION DATE: 05/25/18 1640 ASPHALT STILL OPERATOR: NICHELLE 05/25/18 1640 RPT#: [id number] DC DATE: STATUS: ADM IN [facility] [address] [place] [address] END OF REPORT
[2018-05-25 16:44] VITALS: BP 133/78
--- NOTE | 2018-05-25 19:54 | NUR ---
PATIENT RESTING IN BED AND REQUESTED ATIVAN AND ZOFRAN. PATIENT DENIES OTHER NEEDS AT THIS TIME. BED IN LOWEST POSITION AND CALL LIGHT WITHIN REACH.
[2018-05-25 20:00] VITALS: BP 141/78
[2018-05-26] VITALS: BP 139/80
[2018-05-26 04:30] VITALS: BP 140/82
--- NOTE | 2018-05-26 06:45 | NUR ---
INITIAL ROUNDING ON THE PATIENT, SHE IS RESTING IN BED, SUPINE WITH THE LIGHTS OFF AND HER EYES CLOSED. EMBEDDED LINUX ENGINEER BUTTON IS IN HER RIGHT HAND, ON ROOM AIR. NO SOB/DISTRESS NOTED
[2018-05-26 07:30] LABS: ALBUMIN 2.6 g/dL (3.4-5.0); ALKALINE PHOSPHATASE 134 U/L (46-116); ALT (SGPT) 15 U/L (10-68); AMYLASE - SERUM 55 U/L (25-115); BILIRUBIN - TOTAL 0.53 mg/dL (0.2-1.3); CALC OSMOLALITY 267 mosm/kg (275-300); CALCIUM 8.2 mg/dL (8.5-10.1); CARBON DIOXIDE 20.4 mmol/L (21.0-32.0); CHLORIDE - SERUM 100 mmol/L (98-107); CREATININE - SERUM 0.3 mg/dL (0.6-1.3); GLUCOSE 153 mg/dL (74-106); LIPASE 406 U/L (73-393); POTASSIUM - SERUM 3.4 mmol/L (3.5-5.1); PROTEIN - SERUM 6.6 g/dL (6.4-8.2); SODIUM 134 mmol/L (136-145); UREA NITROGEN 5 mg/dL (7-18); eGFR NON AFRICAN AMERICAN > 90 mL/min (90-120)
[2018-05-26 07:52] LABS: BASOPHILS 0.4 % (0-2); EOSINOPHILS 2.2 % (0-7); HEMATOCRIT 31.9 % (36.0-48.0); HEMOGLOBIN 11.1 g/dL (12-16); IMMATURE GRANULOCYTES 0.2 % (0-5); MCH 28.9 pg (26.0-34.0); MCHC 34.8 g/dL (31.0-37.0); MCV 83.1 fL (80.0-100.0); MEAN PLATELET VOLUME 10.4 fL (7.4-10.4); MONOCYTES 6.7 % (2-11); NEUTROPHILS 54.5 % (40-80); PLATELET COUNT 267 10x3/uL (130-400); RBC 3.84 10x6/uL (4.00-5.40); RDW 14.1 % (11.5-14.5); WBC 4.9 10x3/uL (4.8-10.8)
[2018-05-26 08:55] VITALS: BP 162/99
[2018-05-26 11:41] VITALS: BP 164/85
--- NOTE | 2018-05-26 13:23 | NUR ---
Nutrition Follow Up: Continues on clear liquid diet Pt reports she had a couple bites of broth last night and then had vomiting Weight 151lb Reviewed labs Procalamine continues at 75mL/hour providing ~450 caloires and 50gm protein Chief Bank Examiner reports that physician would like the pt to go home on TPN. Recommend: to go ahead and start TPN now. If physician agrees, will need consult for RD to manage TPN and pt will need a central line RD following
--- NOTE | 2018-05-26 13:33 | NUR ---
SPOKE TO ANNABEL AT DR VO OFFICE, INFORMING HER THE VP PUBLIC RELATIONS ORDER NEEDS RENEWING OR A NEW ORDER FOR IVP THE PATIENT IS BEING PREPARED FOR DISCHARGE
--- NOTE | 2018-05-26 14:37 | MORECARE ---
CASE MANAGEMENT DISCHARGE SUMMARY PATIENT: MIC RIVERA UNIT: [id number] ADM DATE: 05/14/18 AGE: 52 : 65 SEX: F ROOM/BED: D.1202 AUTHOR: FISH,DOC PHYSICIAN: REFERRING PHYSICIAN: DELILAH WILLIAM MD DATE OF SERVICE: 05/26/18 Discharge Plan Patient Name: MIC RIVERA Facility: [facility]:[place] : 1965 Planned Disposition: Home Anticipated Discharge Date: Discharge Date: Expected LOS: Initial Reviewer: [email or web address] Initial Review Date: 05/18/2018 Generated: 05/26/18 3:37 pm Comments DCP- Discharge Planning Updated by [email or web address]: Madelin Stone on 05/26/18 1:[address] CM called [facility]. Spoke with Joceline about referral. Joceline stated she did not know if they would be able to accept a TPN patient. CM faxed records as requested. Awaiting call back from [facility] with determination of acceptance. DCP- Discharge Planning Updated by [email or web address]: Madelin Stone on 05/26/18 1:[address] CM met with patient about discharge planning with TPN. Patient states she would prefer to discharge to home with TPN. Per patient's request CM spoke with patient's daughter about home health. Daughter verbalized her concerns about patient being discharged to home related to pain control. Daughter states they were told by GI doctor that they would be set up with a pain management doctor to help make sure her pain is controlled. CM informed daughter that I would relay her concern to the attending physician and the GI doctor. CM informed daughter that I was not under the impression that the plan was to discharge the patient today, but I did need to start working on setting up home health and infusion company for future discharge. Daughter verbalized understanding and selected [facility]. CM informed her that [facility] had informed CM yesterday that they were currently unable to accept patients prior to Thursday. Daughter stated she would not select a different home health, that the patient would just have to stay in the hospital until Thursday. Daughter also selected Infusion companies. [employer] and [employer]. Stated to use which ever one [facility] works with the most. Patient signed patient choice form. DCP- Discharge Planning Updated by [id number]: Madelinmicki Stone on 05/25/18 3:[address] CM received order to speak with patient / family about LTAC placement for TPN. Patient is not on TPN at this time. She is on a clear liquid diet. CM spoke with patient and family about order to discuss LTAC in case patient ended up on TPN. CM explained LTAC services and Home Health services. Patient and spouse verbalized understanding and at this time do not want to make any decisions about LTAC, but agree to consider it if/when the patient gets TPN. CM will continue to follow and assist as needed with discharge planning / needs. DCP- Discharge Planning Updated by [email or web address]: Radha Arias on 05/18/18 11:[address] Patient Name: MIC RIVERA Admission Status: ER Accout number: [id number] Admission Date: 05-14-2018 : 1965 Admission Diagnosis: Attending: DELILAH WILLIAM Current LOS: 4 Anticipated DC Date: Planned Disposition: Home Primary Insurance: [employer] [facility] OPTIONS [employer] Discharge Planning Comments: CM MET WITH PATIENT ABOUT DC PLANNING/NEEDS. STATES PLANS TO DC TO HOME WITH . DENIES NEEDS AT THIS TIME. CM WILL FOLLOW AND ASSIST NEEDED WITH DC PLANNING/NEEDS. Supervisor [employer]: Radha Arias DCPIA - Discharge Planning Initial Assessment Updated by [email or web address]: Radha Arias on 05/18/18 12:44 pm * Is the patient Alert and Oriented? Yes * PCP [facility] * [facility] * Preadmission Environment Home with Family * ADLs Independent * Equipment None * List name and contact numbers for known caregivers / representatives who currently or will assist patient after discharge: SHINE MARTINEZ, [phone] * Community resources currently utilized None * Additional services required to return to the preadmission environment? No * Can the patient safely return to the preadmission environment? Yes * Has this patient been hospitalized within the prior 30 days at any hospital? Yes Last DP export: 05/25/18 3:40 p Patient Name: MIC RIVERA Page [id number] at 1437 All edits/amendments must be made on the electronic document DICTATION DATE: 05/26/181436 CHILDREN LIBRARIAN: DM 05/26/18 143 RPT#: [id number] DC DATE: STATUS: ADM IN [facility] [address] [place] [address] END OF REPORT
--- NOTE | 2018-05-26 14:56 | MORECARE ---
CASE MANAGEMENT DISCHARGE SUMMARY PATIENT: MIC RIVERA UNIT: [id number] ADM DATE: 05/14/18 AGE: 52 : 65 SEX: F ROOM/BED: D.1202 AUTHOR: FISH,DOC PHYSICIAN: REFERRING PHYSICIAN: DELILAH WILLIAM MD DATE OF SERVICE: 05/26/18 Discharge Plan Patient Name: MIC RIVERA Facility: [facility]:[place] : 1965 Planned Disposition: Home Anticipated Discharge Date: Discharge Date: Expected LOS: Initial Reviewer: [email or web address] Initial Review Date: 05/18/2018 Generated: 05/26/18 3:56 pm Comments DCP- Discharge Planning Updated by [email or web address]: Madelin Stone on 05/26/18 1:[address] CM called [facility]. Spoke with Joceline about referral. Joceline stated she did not know if they would be able to accept a TPN patient. CM faxed records as requested. Awaiting call back from [facility] with determination of acceptance. DCP- Discharge Planning Updated by [id number]: Madelin Stone on 05/26/18 1:[address] CM met with patient about discharge planning with TPN. Patient states she would prefer to discharge to home with TPN. Per patient's request CM spoke with patient's daughter about home health. Daughter verbalized her concerns about patient being discharged to home related to pain control. Daughter states they were told by GI doctor that they would be set up with a pain management doctor to help make sure her pain is controlled. CM informed daughter that I would relay her concern to the attending physician and the GI doctor. CM informed daughter that I was not under the impression that the plan was to discharge the patient today, but I did need to start working on setting up home health and infusion company for future discharge. Daughter verbalized understanding and selected [facility]. CM informed her that [facility] had informed CM yesterday that they were currently unable to accept patients prior to Thursday. Daughter stated she would not select a different home health, that the patient would just have to stay in the hospital until Thursday. Daughter also selected Infusion companies. [employer] and [employer]. Stated to use which ever one [facility] works with the most. Patient signed patient choice form. DCP- Discharge Planning Updated by [email or web address]: Madelin Chase on 05/25/18 3:[address] CM received order to speak with patient / family about LTAC placement for TPN. Patient is not on TPN at this time. She is on a clear liquid diet. CM spoke with patient and family about order to discuss LTAC in case patient ended up on TPN. CM explained LTAC services and Home Health services. Patient and spouse verbalized understanding and at this time do not want to make any decisions about LTAC, but agree to consider it if/when the patient gets TPN. CM will continue to follow and assist as needed with discharge planning / needs. DCP- Discharge Planning Updated by [id number]: Radha Arias on 05/18/18 11:[address] Patient Name: MIC RIVERA Admission Status: ER Accout number: [id number] Admission Date: 05-14-2018 : 1965 Admission Diagnosis: Attending: DELILAH WILLIAM Current LOS: 4 Anticipated DC Date: Planned Disposition: Home Primary Insurance: [employer] [facility] Discharge Planning Comments: CM MET WITH PATIENT ABOUT DC PLANNING/NEEDS. STATES PLANS TO DC TO HOME WITH . DENIES NEEDS AT THIS TIME. CM WILL FOLLOW AND ASSIST NEEDED WITH DC PLANNING/NEEDS. [employer]: Radha Arias DCPIA - Discharge Planning Initial Assessment Updated by [email or web address]: Radha Arias on 05/18/18 12:44 pm * Is the patient Alert and Oriented? Yes * PCP [facility] * [facility] * Preadmission Environment Home with Family * ADLs Independent * Equipment None * List name and contact numbers for known caregivers / representatives who currently or will assist patient after discharge: SHINE MARTINEZ, [phone] * Community resources currently utilized None * Additional services required to return to the preadmission environment? No * Can the patient safely return to the preadmission environment? Yes * Has this patient been hospitalized within the prior 30 days at any hospital? Yes External Providers External Provider: [facility] Next Contact Date: Service Request Date: Service Type: Resolution: Reviewer: Comments: External Provider: [facility] Next Contact Date: Service Request Date: Service Type: Resolution: Reviewer: Comments: Last DP export: 05/26/18 1:37 p Patient Name: MIC RIVERA Page 93790 at 1456 All edits/amendments must be made on the electronic document DICTATION DATE: 05/26/181454 HOSE CEMENTER: NICHELLE 05/26/181454 RPT#: [id number] DC DATE: STATUS: ADM IN [facility] [address] [place] [address] END OF REPORT
--- NOTE | 2018-05-26 15:05 | MORECARE ---
CASE MANAGEMENT DISCHARGE SUMMARY PATIENT: MIC RIVERA UNIT: [id number] ADM DATE: 05/14/18 AGE: 52 : 65 SEX: F ROOM/BED: D.1202 AUTHOR: FISH,DOC PHYSICIAN: REFERRING PHYSICIAN: DELILAH WILLIAM MD DATE OF SERVICE: 05/26/18 Discharge Plan Patient Name: MIC RIVERA Facility: [facility]:[place] : 1965 Planned Disposition: Home Anticipated Discharge Date: Discharge Date: Expected LOS: Initial Reviewer: [email or web address] Initial Review Date: 05/18/2018 Generated: 05/26/18 4:05 pm Comments DCP- Discharge Planning Updated by [email or web address]: Madelin Stone on 05/26/18 1:[address] CM spoke with [facility] about referral. Faxed records as requested. Awaiting call back about insurance coverage. DCP- Discharge Planning Updated by [email or web address]: Madelin Stone on 05/26/18 1:[address] CM called [facility]. Spoke with Joceline about referral. Joceline stated she did not know if they would be able to accept a TPN patient. CM faxed records as requested. Awaiting call back from [facility] with determination of acceptance. DCP- Discharge Planning Updated by [id number]: Madelin Stone on 05/26/18 1:[address] CM met with patient about discharge planning with TPN. Patient states she would prefer to discharge to home with TPN. Per patient's request CM spoke with patient's daughter about home health. Daughter verbalized her concerns about patient being discharged to home related to pain control. Daughter states they were told by GI doctor that they would be set up with a pain management doctor to help make sure her pain is controlled. CM informed daughter that I would relay her concern to the attending physician and the GI doctor. CM informed daughter that I was not under the impression that the plan was to discharge the patient today, but I did need to start working on setting up home health and infusion company for future discharge. Daughter verbalized understanding and selected [facility]. CM informed her that [facility] had informed CM yesterday that they were currently unable to accept patients prior to Thursday. Daughter stated she would not select a different home health, that the patient would just have to stay in the hospital until Thursday. Daughter also selected Infusion companies. [facility] and [facility]. Stated to use which ever one [facility] works with the most. Patient signed patient choice form. DCP- Discharge Planning Updated by [id number]: Madelin Stone on 05/25/18 3:[address] CM received order to speak with patient / family about LTAC placement for TPN. Patient is not on TPN at this time. She is on a clear liquid diet. CM spoke with patient and family about order to discuss LTAC in case patient ended up on TPN. CM explained LTAC services and Home Health services. Patient and spouse verbalized understanding and at this time do not want to make any decisions about LTAC, but agree to consider it if/when the patient gets TPN. CM will continue to follow and assist as needed with discharge planning / needs. DCP- Discharge Planning Updated by [email or web address]: Radha Arias on 05/18/18 11:[address] Patient Name: MIC RIVERA Admission Status: ER Accout number: [id number] Admission Date: 05-14-2018 : 1965 Admission Diagnosis: Attending: DELILAH WILLIAM Current LOS: 4 Anticipated DC Date: Planned Disposition: Home [facility] Discharge Planning Comments: CM MET WITH PATIENT ABOUT DC PLANNING/NEEDS. STATES PLANS TO DC TO HOME WITH . DENIES NEEDS AT THIS TIME. CM WILL FOLLOW AND ASSIST NEEDED WITH DC PLANNING/NEEDS. Managing Director: Radha Arias DCPIA - Discharge Planning Initial Assessment Updated by [email or web address]: Radha Arias on 05/18/18 12:44 pm * Is the patient Alert and Oriented? Yes * PCP [facility] * [facility] * Preadmission Environment Home with Family * ADLs Independent * Equipment None * List name and contact numbers for known caregivers / representatives who currently or will assist patient after discharge: JUAN,, [phone] * Community resources currently utilized None * Additional services required to return to the preadmission environment? No * Can the patient safely return to the preadmission environment? Yes * Has this patient been hospitalized within the prior 30 days at any hospital? Yes Last DP export: 05/26/18 1:56 p Patient Name: MIC RIVERA Page 54770 at 1505 All edits/amendments must be made on the electronic document DICTATION DATE: 05/26/181504 FIELD CONTRACTOR: NICHELLE 05/26/181504 RPT#: [id number] DC DATE: STATUS: ADM IN [facility] [address] [place] [address] END OF REPORT
[2018-05-26 16:03] LABS: MAGNESIUM - SERUM 1.8 mg/dL (1.8-2.4); PHOSPHOROUS 2.9 mg/dL (2.5-4.9)
[2018-05-26 16:20] VITALS: BP 118/79
--- NOTE | 2018-05-26 18:41 | NUR ---
SPOKE TO CHARLIE IN THE PHARMACY, HE IS RETIMING THE CLINIMIX THE PATIENT DOES NOT HAVE PICC NOR CENTRAL LINE
--- NOTE | 2018-05-26 19:05 | MORECARE ---
CASE MANAGEMENT DISCHARGE SUMMARY PATIENT: MIC RIVERA UNIT: [id number] ADM DATE: 05/14/18 AGE: 52 : 65 SEX: F ROOM/BED: D.1202 AUTHOR: FISH,DOC PHYSICIAN: REFERRING PHYSICIAN: DELILAH WILLIAM MD DATE OF SERVICE: 05/26/18 Discharge Plan Patient Name: MIC RIVERA Facility: [facility]:[place] : 1965 Planned Disposition: Home Anticipated Discharge Date: Discharge Date: Expected LOS: Initial Reviewer: [email or web address] Initial Review Date: 05/18/2018 Generated: 05/26/18 8:05 pm Comments DCP- Discharge Planning Updated by [email or web address]: Madelin Stone on 05/26/18 6:[address] CM spoke with patient and spouse about their concerns with pain management if patient is discharged to home. Both are in agreement to LTACH referral to [facility] [place]. CM unable to reach referral intake at this time. Will follow up tomorrow with referral. DCP- Discharge Planning Updated by [id number]: Madelin Stone on 05/26/18 6:[address] CM received call back from [facility]. Stated patient's insurance would pay for TPN 100%. CM will fax additional orders for TPN when they are finalized for discharge. DCP- Discharge Planning Updated by [email or web address]: Madelin Stone on 05/26/18 1:[address] CM spoke with [facility] about referral. Faxed records as requested. Awaiting call back about insurance coverage. DCP- Discharge Planning Updated by [email or web address]: Madelin Stone on 05/26/18 1:[address] CM called [facility]. Spoke with Joceline about referral. Joceline stated she did not know if they would be able to accept a TPN patient. CM faxed records as requested. Awaiting call back from [facility] with determination of acceptance. DCP- Discharge Planning Updated by [email or web address]: Madelin Stone on 05/26/18 1:[address] CM met with patient about discharge planning with TPN. Patient states she would prefer to discharge to home with TPN. Per patient's request CM spoke with patient's daughter about home health. Daughter verbalized her concerns about patient being discharged to home related to pain control. Daughter states they were told by GI doctor that they would be set up with a pain management doctor to help make sure her pain is controlled. CM informed daughter that I would relay her concern to the attending physician and the GI doctor. CM informed daughter that I was not under the impression that the plan was to discharge the patient today, but I did need to start working on setting up home health and infusion company for future discharge. Daughter verbalized understanding and selected [facility]. CM informed her that [facility] had informed CM yesterday that they were currently unable to accept patients prior to Thursday. Daughter stated she would not select a different home health, that the patient would just have to stay in the hospital until Thursday. Daughter also selected Infusion companies. [facility]. Stated to use which ever one [facility] works with the most. Patient signed patient choice form. DCP- Discharge Planning Updated by [email or web address]: Madelin Stone on 05/25/18 3:[address] CM received order to speak with patient / family about LTAC placement for TPN. Patient is not on TPN at this time. She is on a clear liquid diet. CM spoke with patient and family about order to discuss LTAC in case patient ended up on TPN. CM explained LTAC services and Home Health services. Patient and spouse verbalized understanding and at this time do not want to make any decisions about LTAC, but agree to consider it if/when the patient gets TPN. CM will continue to follow and assist as needed with discharge planning / needs. DCP- Discharge Planning Updated by [email or web address]: Radha Arias on 05/18/18 11:[address] Patient Name: MIC RIVERA Admission Status: ER Accout number: [id number] Admission Date: 05-14-2018 : 1965 Admission Diagnosis: Attending: DELILAH WILLIAM Current LOS: 4 Anticipated DC Date: Planned Disposition: Home Primary Insurance: [employer] Discharge Planning Comments: CM MET WITH PATIENT ABOUT DC PLANNING/NEEDS. STATES PLANS TO DC TO HOME WITH . DENIES NEEDS AT THIS TIME. CM WILL FOLLOW AND ASSIST NEEDED WITH DC PLANNING/NEEDS. Stonework Supervisor: Radha Arias DCPIA - Discharge Planning Initial Assessment Updated by [email or web address]: Radha Arias on 05/18/18 12:44 pm * Is the patient Alert and Oriented? Yes * PCP [facility] * Pharmacy [email or web address] * Preadmission Environment Home with Family * ADLs Independent * Equipment None * List name and contact numbers for known caregivers / representatives who currently or will assist patient after discharge: SHINE MARTINEZ, [phone] * Community resources currently utilized None * Additional services required to return to the preadmission environment? No * Can the patient safely return to the preadmission environment? Yes * Has this patient been hospitalized within the prior 30 days at any hospital? Yes Last DP export: 05/26/18 2:05 p Patient Name: MIC RIVERA Page 22997 at 1905 All edits/amendments must be made on the electronic document DICTATION DATE: 05/26/181904 ADVERTISING PHOTOGRAPHER: NICHELLE 05/26/181904 RPT#: [id number] DC DATE: STATUS: [facility] [address] [place] [address] END OF REPORT
--- NOTE | 2018-05-26 19:35 | NUR ---
ALERT AND ORIENTED X4. LYING IN BED WATCHING TV. RESP EVEN AND NONLABORED. BBS CTA. ABD SOFT, TENDER. BS HYPOACTIVE X4 QUADS. RATES PAIN IN BACK AND ABD 4 ON PAIN SCALE. TELEMETRY SHOWS ST WITH RATE OF 112. NO EDEMA NOTED. NS @ 100 ML/HR INFUSIING IN LT MIDLINE. PROCAL INFUSING @ 50 ML/HR IN LT MIDLINE. AMBULATORY. NO DISTRESS. SR ELEVATED X2. CL IN REACH.
[2018-05-26 19:59] VITALS: BP 160/87
--- NOTE | 2018-05-26 22:05 | NUR ---
MEDICATED WITH MORPHINE FOR C/O PAIN IN BACK AND ABD RATING 9. SR ELEVATED X2. CL IN REACH.
--- NOTE | 2018-05-26 22:40 | NUR ---
MEDICATED WITH ATIVAN FOR C/O ANXIETY. CL IN REACH.
[2018-05-27] VITALS (7 sets, daily range): BP systolic 128–167; BP diastolic 70–98
--- NOTE | 2018-05-27 01:14 | NUR ---
AWAKENED FOR V/S. NO DISTRESS. DENIES NEEDS. CL IN REACH.
--- NOTE | 2018-05-27 02:39 | NUR ---
REQUESTS PAIN AND NAUSEA MED. MEDICATED WITH MORPHINE AND ZOFRAN ORDERED. CL IN REACH. WATCHING TV.
--- NOTE | 2018-05-27 04:40 | NUR ---
REQUESTS MED FOR ANXIETY. MEDICATED WITH ATIVAN ORDERED.
--- NOTE | 2018-05-27 06:07 | NUR ---
PT'S PAIN HAS BEEN UNDER CONTROL ALL SHIFT WITH MORPHINE 2MG IVP. PT NOW YELLING OUT SAYING SHE IS DYING. HAS BEEN ANXIOUS ALL NIGHT. STATES SHE DOESNT WANT TO GO TO [facility]. WILL GIVE PAIN MED WHEN DUE.
--- NOTE | 2018-05-27 06:20 | NUR ---
MEDICATED WITH MORPHINE FOR C/O BACK AND ABD PAIN RATING 10 ON PAIN SCALE. SAYS, "I JUST CAME OUT OF THE BATHROOM AND I CANT GET COMFORTABLE IN THIS BED. ". ENCOURAGED PT TO SPEAK TO DR ABOUT PAIN CONTROL.
--- NOTE | 2018-05-27 06:58 | NUR ---
INITIAL ROUNDING, PATIENT HAS WEIGHT ANALYST IN ROOM REFUSING TO HAVE BLOOD DRAWN, STATES 'NO WAY, IM IN PAIN AND I GET A PICC LINE TODAY AND GET BLOOD THEN" SHE REPORTS PAIN OF 7/10 AND HAS RECENTLY HAD MORPHINE.
--- NOTE | 2018-05-27 08:46 | NUR ---
CALLED TO NOTIFY MEETA, VASCULAR NURSE OF THE ORDER FOR A PICC LINE, SHE STATES SHE IS AWARE
--- NOTE | 2018-05-27 10:31 | NUR ---
CALLED AND ASKED [facility] TO INCREASE THE PROCAL RATE TO 1OO PER RAJ/DR WILLIAM, THIS RATE INCREASE TO CONTINUE UNTIL TPN STARTED
--- NOTE | 2018-05-27 13:33 | MORECARE ---
CASE MANAGEMENT DISCHARGE SUMMARY PATIENT: MIC RIVERA UNIT: [id number] ADM DATE: 05/14/18 AGE: 52 : 65 SEX: F ROOM/BED: D.1202 AUTHOR: FISH,DOC PHYSICIAN: REFERRING PHYSICIAN: DELILAH WILLIAM MD DATE OF SERVICE: 05/27/18 Discharge Plan Patient Name: MIC RIVERA Facility: [facility]:[place] : 1965 Planned Disposition: Home Anticipated Discharge Date: Discharge Date: Expected LOS: Initial Reviewer: [email or web address] Initial Review Date: 05/18/2018 Generated: 05/27/18 2:33 pm Comments DCP- Discharge Planning Updated by [email or web address]: Madelin Stone on 05/26/18 6:[address] CM spoke with patient and spouse about their concerns with pain management if patient is discharged to home. Both are in agreement to LTACH referral to [facility] in [place]. CM unable to reach referral intake at this time. Will follow up tomorrow with referral. DCP- Discharge Planning Updated by [id number]: Madelin Stone on 05/26/18 6:[address] CM received call back from [employer]. Stated patient's insurance would pay for TPN 100%. CM will fax additional orders for TPN when they are finalized for discharge. DCP- Discharge Planning Updated by [email or web address]: Madelin Stone on 05/26/18 1:[address] CM spoke with [facility] about referral. Faxed records as requested. Awaiting call back about insurance coverage. DCP- Discharge Planning Updated by [id number]: Madelin Stone on 05/26/18 1:[address] CM called [facility]. Spoke with Joceline about referral. Joceline stated she did not know if they would be able to accept a TPN patient. CM faxed records as requested. Awaiting call back from [facility] with determination of acceptance. DCP- Discharge Planning Updated by [id number]: Madelin Stone on 05/26/18 1:[address] CM met with patient about discharge planning with TPN. Patient states she would prefer to discharge to home with TPN. Per patient's request CM spoke with patient's daughter about home health. Daughter verbalized her concerns about patient being discharged to home related to pain control. Daughter states they were told by GI doctor that they would be set up with a pain management doctor to help make sure her pain is controlled. CM informed daughter that I would relay her concern to the attending physician and the GI doctor. CM informed daughter that I was not under the impression that the plan was to discharge the patient today, but I did need to start working on setting up home health and infusion company for future discharge. Daughter verbalized understanding and selected [facility]. CM informed her that [facility] had informed CM yesterday that they were currently unable to accept patients prior to Thursday. Daughter stated she would not select a different home health, that the patient would just have to stay in the hospital until Thursday. Daughter also selected Infusion companies. [place] and [place]. Stated to use which ever one [facility] works with the most. Patient signed patient choice form. DCP- Discharge Planning Updated by [email or web address]: Madelin Stone on 05/25/18 3:[address] CM received order to speak with patient / family about LTAC placement for TPN. Patient is not on TPN at this time. She is on a clear liquid diet. CM spoke with patient and family about order to discuss LTAC in case patient ended up on TPN. CM explained LTAC services and Home Health services. Patient and spouse verbalized understanding and at this time do not want to make any decisions about LTAC, but agree to consider it if/when the patient gets TPN. CM will continue to follow and assist as needed with discharge planning / needs. DCP- Discharge Planning Updated by [email or web address]: Radha Arias on 05/18/18 11:[address] Patient Name: MIC RIVERA Admission Status: ER Accout number: [id number] Admission Date: 05-14-2018 : 1965 Admission Diagnosis: Attending: DELILAH WILLIAM Current LOS: 4 Anticipated DC Date: Planned Disposition: Home Primary Insurance: [employer]IONS [employer] Discharge Planning Comments: CM MET WITH PATIENT ABOUT DC PLANNING/NEEDS. STATES PLANS TO DC TO HOME WITH . DENIES NEEDS AT THIS TIME. CM WILL FOLLOW AND ASSIST NEEDED WITH DC PLANNING/NEEDS. Tumbler Machine Operator: Radha Arias DCPIA - Discharge Planning Initial Assessment Updated by [email or web address]: Radha Arias on 05/18/18 12:44 pm * Is the patient Alert and Oriented? Yes * PCP [facility] * Pharmacy [facility] * Preadmission Environment Home with Family * ADLs Independent * Equipment None * List name and contact numbers for known caregivers / representatives who currently or will assist patient after discharge: SHINE MARTINEZ, [phone] * Community resources currently utilized None * Additional services required to return to the preadmission environment? No * Can the patient safely return to the preadmission environment? Yes * Has this patient been hospitalized within the prior 30 days at any hospital? Yes External Providers External Provider: Fariba Vergara [facility] Next Contact Date: Service Request Date: Service Type: Resolution: Reviewer: Comments: Last DP export: 05/26/18 6:05 p Patient Name: MIC RIVERA Page 14575 at 1333 All edits/amendments must be made on the electronic document DICTATION DATE: 05/27/18 1333 LUMBER STRAIGHTENED: NICHELLE 05/27/18 1333 RPT#: [id number] DC DATE: STATUS: ADM IN [facility] [address] [place] [address] END OF REPORT
--- NOTE | 2018-05-27 14:06 | MORECARE ---
CASE MANAGEMENT DISCHARGE SUMMARY PATIENT: MIC RIVERA UNIT: [id number] ADM DATE: 05/14/18 AGE: 52 : 65 SEX: F ROOM/BED: D.1202 AUTHOR: FISH,DOC PHYSICIAN: REFERRING PHYSICIAN: DELILAH WILLIAM MD DATE OF SERVICE: 05/27/18 Discharge Plan Patient Name: MIC RIVERA Facility: [facility]:[place] : 1965 Planned Disposition: Home Anticipated Discharge Date: Discharge Date: Expected LOS: Initial Reviewer: [email or web address] Initial Review Date: 05/18/2018 Generated: 05/27/18 3:06 pm Comments DCP- Discharge Planning Updated by [id number]: Madelin Stone on 05/27/18 1:[address] CM was called by nurse, Sidra, to meet with patient about discharge planning. CM met with patient who was tearful. Patient states that her daughter is trying to set her up with hospice. Patient ask CM why her daughter would do that. Asked CM if she was dying. CM informed patient that there was nothing in her record that would lead CM to believe that she was dying or would qualify for Hospice. CM asked patient what she wanted CM to set her up with regarding her discharge planning. [facility] Patient [facility] in [place]. CM called [facility], spoke with Mary Gallagher about referral. Faxed records as requested. Mary informed CM that [facility] would come evaluate patient tomorrow and they would fax clinicals to patient's insurance company for auth. States it usually takes a few days to obtain auth. CM informed patient of status of referral. Patient verbalized understanding and satisfaction with discharge plan. CM will continue to follow and assist as needed with discharge planning / needs. DCP- Discharge Planning Updated by [id number]: Madelin Stone on 05/26/18 6:[address] CM spoke with patient and spouse about their concerns with pain management if patient is discharged to home. Both are in agreement to LTACH referral to [facility] in [place]. CM unable to reach referral intake at this time. Will follow up tomorrow with referral. DCP- Discharge Planning Updated by [email or web address]: Madelin Stone on 05/26/18 6:[address] CM received call back from [employer]. Stated patient's insurance would pay for TPN 100%. CM will fax additional orders for TPN when they are finalized for discharge. DCP- Discharge Planning Updated by [id number]: Madelin Stone on 05/26/18 1:[address] CM spoke with [facility] In[facility] company about referral. Faxed records as requested. Awaiting call back about insurance coverage. DCP- Discharge Planning Updated by [email or web address]: Madelin Stone on 05/26/18 1:[address] CM called [facility]. Spoke with Joceline about referral. Joceline stated she did not know if they would be able to accept a TPN patient. CM faxed records as requested. Awaiting call back from [facility] with determination of acceptance. DCP- Discharge Planning Updated by [email or web address]: Madelin Stone on 05/26/18 1:[address] CM met with patient about discharge planning with TPN. Patient states she would prefer to discharge to home with TPN. Per patient's request CM spoke with patient's daughter about home health. Daughter verbalized her concerns about patient being discharged to home related to pain control. Daughter states they were told by GI doctor that they would be set up with a pain management doctor to help make sure her pain is controlled. CM informed daughter that I would relay her concern to the attending physician and the GI doctor. CM informed daughter that I was not under the impression that the plan was to discharge the patient today, but I did need to start working on setting up home health and infusion company for future discharge. Daughter verbalized understanding and [facility] CM informed her [facility] yesterday that they were currently unable to accept patients prior to Thursday. Daughter stated she would not select a different home health, that the patient would just have to stay in the hospital until Thursday. Daughter also selected Infusion companies. [facility] and [facility]. Stated to use which ever one [facility] works with the most. Patient signed patient choice form. DCP- Discharge Planning Updated by [email or web address]: Madelin Stone on 05/25/18 3:[address] CM received order to speak with patient / family about LTAC placement for TPN. Patient is not on TPN at this time. She is on a clear liquid diet. CM spoke with patient and family about order to discuss LTAC in case patient ended up on TPN. CM explained LTAC services and Home Health services. Patient and spouse verbalized understanding and at this time do not want to make any decisions about LTAC, but agree to consider it if/when the patient gets TPN. CM will continue to follow and assist as needed with discharge planning / needs. DCP- Discharge Planning Updated by [id number]: Radha Arias on 05/18/18 11:[address] Patient Name: MIC RIVERA Admission Status: ER Accout number: [id number] Admission Date: 05-14-2018 : 1965 Admission Diagnosis: Attending: DELILAH WILLIAM Current LOS: 4 Anticipated DC Date: Planned Disposition: Home Primary Insurance: [employer] Discharge Planning Comments: CM MET WITH PATIENT ABOUT DC PLANNING/NEEDS. STATES PLANS TO DC TO HOME WITH . DENIES NEEDS AT THIS TIME. CM WILL FOLLOW AND ASSIST NEEDED WITH DC PLANNING/NEEDS. Portrait Studio Photographer: Radha Airas DCPIA - Discharge Planning Initial Assessment Updated by [email or web address]: Radha Arias on 05/18/18 12:44 pm * Is the patient Alert and Oriented? Yes * PCP [facility] * Pharmacy [facility] * Preadmission Environment Home with Family * ADLs Independent * Equipment None * List name and contact numbers for known caregivers / representatives who currently or will assist patient after discharge: SHINE MARTINEZ, [phone] * Community resources currently utilized None * Additional services required to return to the preadmission environment? No * Can the patient safely return to the preadmission environment? Yes * Has this patient been hospitalized within the prior 30 days at any hospital? Yes Last DP export: 05/27/18 12:33 p Patient Name: MIC RIVERA Page [id number] at 1406 All edits/amendments must be made on the electronic document DICTATION DATE: 05/27/18 1406 SLIDE FASTENERS INSPECTOR: NICHELLE 05/27/18 1406 RPT#: [id number] DC DATE: STATUS: ADM IN [facility] [address] [place] [address] END OF REPORT
--- NOTE | 2018-05-27 14:47 | MORECARE ---
CASE MANAGEMENT DISCHARGE SUMMARY PATIENT: MIC RIVERA UNIT: [id number] ADM DATE: 05/14/18 AGE: 52 : 65 SEX: F ROOM/BED: D.1202 AUTHOR: FISH,DOC PHYSICIAN: REFERRING PHYSICIAN: DELILAH AGUDELO MD DATE OF SERVICE: 05/27/18 Discharge Plan Patient Name: MIC RIVERA Facility: [facility]:[place] : 1965 Planned Disposition: Home Anticipated Discharge Date: Discharge Date: Expected LOS: Initial Reviewer: [email or web address] Initial Review Date: 05/18/2018 Generated: 05/27/18 3:47 pm Comments DCP- Discharge Planning Updated by [id number]: Mdaelin Stone on 05/27/18 1:[address] CM received call from patient's daughter stating they have decided to go home with [facility]. Daughter states she has personally called Dr. Mcgowan and he is willing to accept patient to home hospice. CM informed daughter that patient has instructed CM to set up LTACH and that CM would have to get direct instructions from patient to change discharge plan. CM met with patient. Patient is very tearful and informed CM that she just wants to go home. Patient told CM that she has decided to change discharge plan to Home Hospice with [facility]. Patient signed CH[facility] for [facility]. CM called Dr. Agudelo for Hospice orders. Dr Agudelo refused hospice orders. States patient is not appropriate for hospice and that he will speak with Dr. Mcgowan. CM awaiting direction from Dr. Agudelo. DCP- Discharge Planning Updated by [id number]: Madelin Stone on 05/27/18 1:[address] CM was called by nurse, Sidra, to meet with patient about discharge planning. CM met with patient who was tearful. Patient states that her daughter is trying to set her up with hospice. Patient ask CM why her daughter would do that. Asked CM if she was dying. CM informed patient that there was nothing in her record that would lead CM to believe that she was dying or would qualify for Hospice. CM asked patient what she wanted CM to set her up with regarding her discharge planning. Patient states she wants to go to LTACH. Patient choice [facility] [place]. [facility] spoke with Mary Gallagher about referral. Faxed records as requested. Mary informed CM that [facility] would come evaluate patient tomorrow and they would fax clinicals to patient's insurance company for auth. States it usually takes a few days to obtain auth. CM informed patient of status of referral. Patient verbalized understanding and satisfaction with discharge plan. CM will continue to follow and assist as needed with discharge planning / needs. DCP- Discharge Planning Updated by [id number]: Madelin Stone on 05/26/18 6:[address] CM spoke with patient and spouse about their concerns with pain management if patient is discharged to home. Both are in agreement to LTACH referral to [facility] in [place]. CM unable to reach referral intake at this time. Will follow up tomorrow with referral. DCP- Discharge Planning Updated by [id number]: Madelin Stone on 05/26/18 6:[address] CM received call back from [facility]. Stated patient's insurance would pay for TPN 100%. CM will fax additional orders for TPN when they are finalized for discharge. DCP- Discharge Planning Updated by [id number]: Madelin Stone on 05/26/18 1:[address] CM spoke with [facility] about referral. Faxed records as requested. Awaiting call back about insurance coverage. DCP- Discharge Planning Updated by [id number]: Madelin Stone on 05/26/18 1:[address] CM called [facility]. Spoke with Joceline about referral. Joceline stated she did not know if they would be able to accept a TPN patient. CM faxed records as requested. Awaiting call back from [facility] with determination of acceptance. DCP- Discharge Planning Updated by [id number]: Mdaelin Stone on 05/26/18 1:[address] CM met with patient about discharge planning with TPN. Patient states she would prefer to discharge to home with TPN. Per patient's request CM spoke with patient's daughter about home health. Daughter verbalized her concerns about patient being discharged to home related to pain control. Daughter states they were told by GI doctor that they would be set up with a pain management doctor to help make sure her pain is controlled. CM informed daughter that I would relay her concern to the attending physician and the GI doctor. CM informed daughter that I was not under the impression that the plan was to discharge the patient today, but I did need to start working on setting up home health and infusion company for future discharge. Daughter verbalized understanding and selected [facility]. CM informed her that [facility] had informed CM yesterday that they were currently unable to accept patients prior to Thursday. Daughter stated she would not select a different home health, that the patient would just have to stay in the hospital until Thursday. Daughter also selected Infusion companies. [place] and [place]. Stated to use which ever one [facility] works with the most. Patient signed patient choice form. DCP- Discharge Planning Updated by [id number]: Madelin Stone on 05/25/18 3:[address] CM received order to speak with patient / family about LTAC placement for TPN. Patient is not on TPN at this time. She is on a clear liquid diet. CM spoke with patient and family about order to discuss LTAC in case patient ended up on TPN. CM explained LTAC services and Home Health services. Patient and spouse verbalized understanding and at this time do not want to make any decisions about LTAC, but agree to consider it if/when the patient gets TPN. CM will continue to follow and assist as needed with discharge planning / needs. DCP- Discharge Planning Updated by [email or web address]: Radha Arias on 05/18/18 11:[address] Patient Name: MIC RIVERA Admission Status: ER Accout number: [id number] Admission Date: 05-14-2018 : 1965 Admission Diagnosis: Attending: DELILAH AGUDELO Current LOS: 4 Anticipated DC Date: Planned Disposition: Home Primary Insurance: [employer] PRVT [employer]IONS [employer] Discharge Planning Comments: CM MET WITH PATIENT ABOUT DC PLANNING/NEEDS. STATES PLANS TO DC TO HOME WITH . DENIES NEEDS AT THIS TIME. CM WILL FOLLOW AND ASSIST NEEDED WITH DC PLANNING/NEEDS. Senior Audit Manager: Radha Arias DCPIA - Discharge Planning Initial Assessment Updated by [email or web address]: Radha Arias on 05/18/18 12:44 pm * Is the patient Alert and Oriented? Yes * PCP [facility] * [facility] * Preadmission Environment Home with Family * ADLs Independent * Equipment None * List name and contact numbers for known caregivers / representatives who currently or will assist patient after discharge: SHINE MARTINEZ, [phone] * Community resources currently utilized None * Additional services required to return to the preadmission environment? No * Can the patient safely return to the preadmission environment? Yes * Has this patient been hospitalized within the prior 30 days at any hospital? Yes Last DP export: 05/27/18 1:06 p Patient Name: MIC RIVERA Page 14537 at 1447 All edits/amendments must be made on the electronic document DICTATION DATE: 05/27/18 1446 LAND ACQUISITION SPECIALIST: NICHELLE 05/27/18 1446 RPT#: [id number] DC DATE: STATUS: ADM IN [facility] [address] [place] [address] END OF REPORT
[2018-05-27 15:36] LABS: BASOPHILS 0.4 % (0-2); HEMATOCRIT 35.4 % (36.0-48.0); HEMOGLOBIN 11.9 g/dL (12-16); LYMPHOCYTES 37.4 % (15-50); MCH 27.7 pg (26.0-34.0); MCHC 33.6 g/dL (31.0-37.0); MCV 82.5 fL (80.0-100.0); MEAN PLATELET VOLUME 9.9 fL (7.4-10.4); MONOCYTES 6.9 % (2-11); NEUTROPHILS 54.3 % (40-80); PLATELET COUNT 248 10x3/uL (130-400); RBC 4.29 10x6/uL (4.00-5.40); RDW 14.1 % (11.5-14.5); WBC 5.1 10x3/uL (4.8-10.8)
[2018-05-27 15:46] LABS: ALBUMIN 2.8 g/dL (3.4-5.0); ALKALINE PHOSPHATASE 132 U/L (46-116); BILIRUBIN - TOTAL 0.54 mg/dL (0.2-1.3); CALCIUM 8.6 mg/dL (8.5-10.1); CARBON DIOXIDE 19.1 mmol/L (21.0-32.0); CHLORIDE - SERUM 99 mmol/L (98-107); GLUCOSE 163 mg/dL (74-106); MAGNESIUM - SERUM 1.8 mg/dL (1.8-2.4); PHOSPHOROUS 2.6 mg/dL (2.5-4.9); PROTEIN - SERUM 7.5 g/dL (6.4-8.2); SODIUM 134 mmol/L (136-145)
[2018-05-27 15:47] LABS: ALT (SGPT) 20 U/L (10-68); CALC OSMOLALITY 269 mosm/kg (275-300); CREATININE - SERUM 0.5 mg/dL (0.6-1.3); UREA NITROGEN 7 mg/dL (7-18); eGFR NON AFRICAN AMERICAN > 90 mL/min (90-120)
--- NOTE | 2018-05-27 16:02 | MORECARE ---
CASE MANAGEMENT DISCHARGE SUMMARY PATIENT: MIC RIVERA UNIT: [id number] ADM DATE: 05/14/18 AGE: 52 : 65 SEX: F ROOM/BED: D.1202 AUTHOR: FISH,DOC PHYSICIAN: REFERRING PHYSICIAN: DLEILAH AGUDELO MD DATE OF SERVICE: 05/27/18 Discharge Plan Patient Name: MIC RIVERA Facility: [facility]:[place] : 1965 Planned Disposition: Home Anticipated Discharge Date: Discharge Date: Expected LOS: Initial Reviewer: [id number] Initial Review Date: 05/18/2018 Generated: 05/27/18 5:02 pm Comments DCP- Discharge Planning Updated by [id number]: Madelin Stone on 05/27/18 2:[address] CM and Dr. Agudelo met with patient together to discuss discharge planning. Dr. Agudelo informed patient that he would not sign Hospice Eval orders as patient does not qualify for Hospice. Dr. Agudelo informed patient that she has two options for discharge: LTACH or Home with Home Health. Patient stated she wanted to discharge to LTACH. CM will continue to follow and assist as needed with discharge planning / needs. DCP- Discharge Planning Updated by [id number]: Madelin Stone on 05/27/18 1:[address] CM received call from patient's daughter stating they have decided to go home with [facility]. Daughter states she has personally called Dr. Mcgowan and he is willing to accept patient to home hospice. CM informed daughter that patient has instructed CM to set up LTACH and that CM would have to get direct instructions from patient to change discharge plan. CM met with patient. Patient is very tearful and informed CM that she just wants to go home. Patient told CM that she has decided to change discharge plan to Home Hospice with [facility]. Patient signed CHU for [facility]. CM called Dr. Agudelo for Hospice orders. Dr Agudelo refused hospice orders. States patient is not appropriate for hospice and that he will speak with Dr. Mcgowan. CM awaiting direction from Dr. Agudelo. DCP- Discharge Planning Updated by [email or web address]: Madelin Stone on 05/27/18 1:[address] CM was called by nurse, Sidra, to meet with patient about discharge planning. CM met with patient who was tearful. Patient states that her daughter is trying to set her up with hospice. Patient ask CM why her daughter would do that. Asked CM if she was dying. CM informed patient that there was nothing in her record that would lead CM to believe that she was dying or would qualify for Hospice. CM asked patient what she wanted CM to set her up with regarding her discharge planning. Patient states she wants to go to LTACH. Patient [facility] in [place]. CM called [facility], spoke with Mary Gallagher about referral. Faxed records as requested. Mary informed CM that Melania would come evaluate patient tomorrow and they would fax clinicals to patient's insurance company for auth. States it usually takes a few days to obtain auth. CM informed patient of status of referral. Patient verbalized understanding and satisfaction with discharge plan. CM will continue to follow and assist as needed with discharge planning / needs. DCP- Discharge Planning Updated by [id number]: Madelin Stone on 05/26/18 6:[address] CM spoke with patient and spouse about their concerns with pain management if patient is discharged to home. Both are in agreement to LTACH referral to [facility] in [place]. CM unable to reach referral intake at this time. Will follow up tomorrow with referral. DCP- Discharge Planning Updated by [id number]: Madelin Stone on 05/26/18 6:[address] CM received call back from [employer]. Stated patient's insurance would pay for TPN 100%. CM will fax additional orders for TPN when they are finalized for discharge. DCP- Discharge Planning Updated by [id number]: Madelin Stone on 05/26/18 1:[address] CM spoke with [employer] about referral. Faxed records as requested. Awaiting call back about insurance coverage. DCP- Discharge Planning Updated by [id number]: Madelin Stone on 05/26/18 1:[address] CM called [facility]. Spoke with Joceline about referral. Joceline stated she did not know if they would be able to accept a TPN patient. CM faxed records as requested. Awaiting call back from [facility] with determination of acceptance. DCP- Discharge Planning Updated by [id number]: Madelin Stone on 05/26/18 1:[address] CM met with patient about discharge planning with TPN. Patient states she would prefer to discharge to home with TPN. Per patient's request CM spoke with patient's daughter about home health. Daughter verbalized her concerns about patient being discharged to home related to pain control. Daughter states they were told by GI doctor that they would be set up with a pain management doctor to help make sure her pain is controlled. CM informed daughter that I would relay her concern to the attending physician and the GI doctor. CM informed daughter that I was not under the impression that the plan was to discharge the patient today, but I did need to start working on setting up home health and infusion company for future discharge. Daughter verbalized understanding and selected [facility]. CM informed her that [facility] had informed CM yesterday that they were currently unable to accept patients prior to Thursday. Daughter stated she would not select a different home health, that the patient would just have to stay in the hospital until Thursday. Daughter also selected Infusion companies. [facility] and [facility]. Stated to use which ever one [facility] works with the most. Patient signed patient choice form. DCP- Discharge Planning Updated by [id number]: Madelin Stone on 05/25/18 3:[address] CM received order to speak with patient / family about LTAC placement for TPN. Patient is not on TPN at this time. She is on a clear liquid diet. CM spoke with patient and family about order to discuss LTAC in case patient ended up on TPN. CM explained LTAC services and Home Health services. Patient and spouse verbalized understanding and at this time do not want to make any decisions about LTAC, but agree to consider it if/when the patient gets TPN. CM will continue to follow and assist as needed with discharge planning / needs. DCP- Discharge Planning Updated by [id number]: Radha Arias on 05/18/18 11:[address] Patient Name: MIC RIVERA Admission Status: ER Accout number: [id number] Admission Date: 05-14-2018 : 1965 Admission Diagnosis: Attending: DELILAH AGUDELO Current LOS: 4 Anticipated DC Date: Planned Disposition: Home Primary Insurance: [employer] Discharge Planning Comments: CM MET WITH PATIENT ABOUT DC PLANNING/NEEDS. STATES PLANS TO DC TO HOME WITH . DENIES NEEDS AT THIS TIME. CM WILL FOLLOW AND ASSIST NEEDED WITH DC PLANNING/NEEDS. Cornice Maker: Radhamicki Arias DCPIA - Discharge Planning Initial Assessment Updated by [id number]: Radhamicki Arias on 05/18/18 12:44 pm * Is the patient Alert and Oriented? Yes * PCP [facility] * Pharmacy [facility] * Preadmission Environment Home with Family * ADLs Independent * Equipment None * List name and contact numbers for known caregivers / representatives who currently or will assist patient after discharge: SHINE MARTINEZ, [phone] * Community resources currently utilized None * Additional services required to return to the preadmission environment? No * Can the patient safely return to the preadmission environment? Yes * Has this patient been hospitalized within the prior 30 days at any hospital? Yes Coverage Notice Reviewer: [id number] Stone Notice Issued Date-Time: 05/27/2018 14:05 Notice Type: Patient Choice Letter Notice Delivered To: Patient Relationship to Patient: Self Field Laboratory Operator Name: Delivery Method: HAND - Hand Delivered Katie Days: Prior Verbal Notification: Recipient Understood Notice: Yes Recipient Signature: Yes Med Rec Note Co-signed by Attending: Coverage Notice Comment: [facility] Reviewer: [id number] Stone Notice Issued Date-Time: 05/26/2018 14:22 Notice Type: Patient Choice Letter Notice Delivered To: Patient Relationship to Patient: Self Field Laboratory Operator Name: Delivery Method: HAND - Hand Delivered Katie Days: Prior Verbal Notification: Recipient Understood Notice: Yes Recipient Signature: Yes Med Rec Note Co-signed by Attending: Coverage Notice Comment: [facility] Last DP export: 05/27/18 1:47 p Patient Name: MIC RIVERA Page [id number] at 1602 All edits/amendments must be made on the electronic document DICTATION DATE: 05/27/18 160 REGULATORY ASSISTANT: NICHELLE 05/27/18 160 RPT#: [id number] DC DATE: STATUS: ADM IN [facility] [address] [place] [address] END OF REPORT
--- NOTE | 2018-05-27 18:34 | NUR ---
30 ML/HR FOR 1 HOUR THEN IF PATIENT TOLERATING INCREASE THE LIPIDS TO 60 ML/HR PER LISA IN THE PHARMACY
--- NOTE | 2018-05-27 19:30 | NUR ---
LYING IN BED. ALERT AND ORIENTED X4. RATES PAIN IN ABD/BACK 4. RESP EVEN AND NONLABORED. BBS CTA. ABD SOFT, TENDER. BS HYPOACTIVE X4 QUADS. NO N/V. STATES SHE FEELS BETTER WTIH TRAMADOL BEING GIVEN IN BETWEEN MORPHINE. TELEMETRY SHOWS SR WITH RATE OF 73. AMBULATORY. CLINIMIX INFUSING @ 40 ML/HR, LIPIDS INFUSING AND NS @ 100 ML/HR INFUSING IN RT UPPER ARM PICC. MIDLINE NOTED TO LT UPPER ARM IS SALINE LOCKED. STILL HAVING ANXIETY ISSUES AND IS ATTN SEEKING AT TIMES. SR ELEVATED X2. CL IN REACH. NO DISTRESS.
--- NOTE | 2018-05-27 20:40 | NUR ---
MEDICATED WITH MORPHINE ORDERED FOR C/O ABD/BACK PAIN. CL IN REACH.
[2018-05-28 05:00] VITALS: BP 105/69
--- NOTE | 2018-05-28 06:00 | NUR ---
HAS RESTED WELL TONIGHT. NO DISTRESS. CL IN REACH.
[2018-05-28 07:41] LABS: CALC OSMOLALITY 276 mosm/kg (275-300); CALCIUM 8.3 mg/dL (8.5-10.1); CARBON DIOXIDE 22.1 mmol/L (21.0-32.0); CHLORIDE - SERUM 106 mmol/L (98-107); CREATININE - SERUM 0.4 mg/dL (0.6-1.3); GLUCOSE 121 mg/dL (74-106); LIPASE 523 U/L (73-393); SODIUM 140 mmol/L (136-145); UREA NITROGEN 5 mg/dL (7-18); eGFR NON AFRICAN AMERICAN > 90 mL/min (90-120)
[2018-05-28 08:00] VITALS: BP 104/61
[2018-05-28 09:49] LABS: MAGNESIUM - SERUM 1.9 mg/dL (1.8-2.4)
[2018-05-28 09:52] LABS: PHOSPHOROUS 4.3 mg/dL (2.5-4.9)
[2018-05-28 12:16] VITALS: BP 108/57
--- NOTE | 2018-05-28 14:22 | MORECARE ---
CASE MANAGEMENT DISCHARGE SUMMARY PATIENT: MIC RIVERA UNIT: [id number] ADM DATE: 05/14/18 AGE: 52 : 65 SEX: F ROOM/BED: D.1202 AUTHOR: FISH,DOC PHYSICIAN: REFERRING PHYSICIAN: DELILAH AGUDELO MD DATE OF SERVICE: 05/28/18 Discharge Plan Patient Name: MIC RIVERA Facility: [facility]:[place] : 1965 Planned Disposition: Home Anticipated Discharge Date: Discharge Date: Expected LOS: Initial Reviewer: [email or web address] Initial Review Date: 05/18/2018 Generated: 05/28/18 3:22 pm Comments DCP- Discharge Planning Updated by [id number]: Madelin Stone on 05/28/18 1:[address] CM spoke with Melania from [facility] about LTACH referral. She informed CM that clinicals have been submitted to [employer] for auth. Expect to get determination early part of next week. Patient informed of status of referral and verbalized understanding. CM will continue to follow and assist as needed with discharge planning / needs. DCP- Discharge Planning Updated by [id number]: Madelin Stone on 05/27/18 2:[address] CM and Dr. Agudelo met with patient together to discuss discharge planning. Dr. Agudelo informed patient that he would not sign Hospice Eval orders as patient does not qualify for Hospice. Dr. Agudelo informed patient that she has two options for discharge: LTACH or Home with Home Health. Patient stated she wanted to discharge to LTACH. CM will continue to follow and assist as needed with discharge planning / needs. DCP- Discharge Planning Updated by [id number]: Madelin Stone on 05/27/18 1:[address] CM received call from patient's daughter stating they have decided to go home with [facility]. Daughter states she has personally called Dr. Mcgowan and he is willing to accept patient to home hospice. CM informed daughter that patient has instructed CM to set up LTACH and that CM would have to get direct instructions from patient to change discharge plan. CM met with patient. Patient is very tearful and informed CM that she just wants to go home. Patient told CM that she has decided to change discharge plan to Home Hospice with [facility]. Patient signed CHU for [facility]. CM called Dr. Agudelo for Hospice orders. Dr Agudelo refused hospice orders. States patient is not appropriate for hospice and that he will speak with Dr. Mcgowan. CM awaiting direction from Dr. Agudelo. DCP- Discharge Planning Updated by [id number]: Madelin Stone on 05/27/18 1:[address] CM was called by nurse, Sidra, to meet with patient about discharge planning. CM met with patient who was tearful. Patient states that her daughter is trying to set her up with hospice. Patient ask CM why her daughter would do that. Asked CM if she was dying. CM informed patient that there was nothing in her record that would lead CM to believe that she was dying or would qualify for Hospice. CM asked patient what she wanted CM to set her up with regarding her discharge planning. Patient states she wants to go to LTACH. Patient choice [facility] in [place]. CM called [facility], spoke with Mary Gallagher about referral. Faxed records as requested. Mary informed CM that Melania would come evaluate patient tomorrow and they would fax clinicals to patient's insurance company for auth. States it usually takes a few days to obtain auth. CM informed patient of status of referral. Patient verbalized understanding and satisfaction with discharge plan. CM will continue to follow and assist as needed with discharge planning / needs. DCP- Discharge Planning Updated by [id number]: Madelin Stone on 05/26/18 6:[address] CM spoke with patient and spouse about their concerns with pain management if patient is discharged to home. Both are in agreement to LTACH referral to [facility] in [place]. CM unable to reach referral intake at this time. Will follow up tomorrow with referral. DCP- Discharge Planning Updated by [id number]: Madelin Stone on 05/26/18 6:[address] CM received call back from [employer]. Stated patient's insurance would pay for TPN 100%. CM will fax additional orders for TPN when they are finalized for discharge. DCP- Discharge Planning Updated by [id number]: Madelin Stone on 05/26/18 1:[address] CM spoke with [facility] company about referral. Faxed records as requested. Awaiting call back about insurance coverage. DCP- Discharge Planning Updated by [id number]: Madelin Stone on 05/26/18 1:[address] CM called [facility]. Spoke with Joceline about referral. Joceline stated she did not know if they would be able to accept a TPN patient. CM faxed records as requested. Awaiting call back from [facility] with determination of acceptance. DCP- Discharge Planning Updated by [id number]: Madelin Stone on 05/26/18 1:[address] CM met with patient about discharge planning with TPN. Patient states she would prefer to discharge to home with TPN. Per patient's request CM spoke with patient's daughter about home health. Daughter verbalized her concerns about patient being discharged to home related to pain control. Daughter states they were told by GI doctor that they would be set up with a pain management doctor to help make sure her pain is controlled. CM informed daughter that I would relay her concern to the attending physician and the GI doctor. CM informed daughter that I was not under the impression that the plan was to discharge the patient today, but I did need to start working on setting up home health and infusion company for future discharge. Daughter verbalized understanding and selected [facility]. CM informed her that [facility] had informed CM yesterday that they were currently unable to accept patients prior to Thursday. Daughter stated she would not select a different home health, that the patient would just have to stay in the hospital until Thursday. Daughter also selected Infusion companies. [facility] and [facility]. Stated to use which ever one [facility] works with the most. Patient signed patient choice form. DCP- Discharge Planning Updated by [email or web address]: Madelin Stone on 05/25/18 3:[address] CM received order to speak with patient / family about LTAC placement for TPN. Patient is not on TPN at this time. She is on a clear liquid diet. CM spoke with patient and family about order to discuss LTAC in case patient ended up on TPN. CM explained LTAC services and Home Health services. Patient and spouse verbalized understanding and at this time do not want to make any decisions about LTAC, but agree to consider it if/when the patient gets TPN. CM will continue to follow and assist as needed with discharge planning / needs. DCP- Discharge Planning Updated by [id number]: Radha Juana on 05/18/18 11:[address] Patient Name: MIC RIVERA Admission Status: ER Accout number: [id number] Admission Date: 05-14-2018 : 1965 Admission Diagnosis: Attending: DELILAH AGUDELO Current LOS: 4 Anticipated DC Date: Planned Disposition: Home [facility] [employer] Discharge Planning Comments: CM MET WITH PATIENT ABOUT DC PLANNING/NEEDS. STATES PLANS TO DC TO HOME WITH . DENIES NEEDS AT THIS TIME. CM WILL FOLLOW AND ASSIST NEEDED WITH DC PLANNING/NEEDS. Outreach And Education Social Worker: Radha Arias DCPIA - Discharge Planning Initial Assessment Updated by [email or web address]: Radha Juana on 05/18/18 12:44 pm * Is the patient Alert and Oriented? Yes * PCP [facility] * Pharmacy [facility] * Preadmission Environment Home with Family * ADLs Independent * Equipment None * List name and contact numbers for known caregivers / representatives who currently or will assist patient after discharge: JUANSHINE, [phone] * Community resources currently utilized None * Additional services required to return to the preadmission environment? No * Can the patient safely return to the preadmission environment? Yes * Has this patient been hospitalized within the prior 30 days at any hospital? Yes Coverage Notice Reviewer: [id number] Stone Notice Issued Date-Time: 05/27/2018 14:05 Notice Type: Patient Choice Letter Notice Delivered To: Patient Relationship to Patient: Self Ic Engineer Name: Delivery Method: HAND - Hand Delivered Katie Days: Prior Verbal Notification: Recipient Understood Notice: Yes Recipient Signature: Yes Med Rec Note Co-signed by Attending: Coverage Notice Comment: [facility] Reviewer: [id number] Teo Stone Notice Issued Date-Time: 05/26/2018 14:22 Notice Type: Patient Choice Letter Notice Delivered To: Patient Relationship to Patient: Self Ic Engineer Name: Delivery Method: HAND - Hand Delivered Katie Days: Prior Verbal Notification: Recipient Understood Notice: Yes Recipient Signature: Yes Med Rec Note Co-signed by Attending: Coverage Notice Comment: [facility] Last DP export: 05/27/18 3:02 p Patient Name: MIC RIVERA Page [id number] at 1422 All edits/amendments must be made on the electronic document DICTATION DATE: 05/28/181420 OPTICAL GLASS SAWYER: NICHELLE 05/28/181420 RPT#: [id number] DC DATE: STATUS: ADM IN [facility] [address] [place] [address] END OF REPORT
--- NOTE | 2018-05-28 15:03 | NUR ---
Nutrition Follow up: Clear liquid diet continues Pt now has a PICC line and is on TPN-RD consulted Reviewed labs with pharmacy and ordered/adjusted TPN Ordered necessary labs for the next [address] following
[2018-05-28 16:00] VITALS: BP 96/48
--- NOTE | 2018-05-28 16:00 | NUR ---
TPN INFUSING AT 75 CC/HR VIA PUMP. DENIES ANY NEEDS AT THIS TIME.
[2018-05-28 20:00] VITALS: BP 95/56
--- NOTE | 2018-05-28 21:00 | NUR ---
PT SITTING UP IN BED W/O DISTRESS. JUST FINISHED WALKING LAP AROUND NURSES STATION W/ ASSIST. ALERT AND ORIENTED. SET UP ASSIST W/ SHOWER. TOLERATED WELL. RIGHT UPPER ARM PICC INFUSING TPN @ 75 AND NS @ 100. LEFT UPPER ARM ML FLUSHES EASILY. HR 72 SR PER TELE. GAVE ATIVAN AND ULTRAM REQUESTED. BS 154, PT REFUSED COVERAGE. DENIES OTHER NEEDS OR COMPLAINTS AT THIS TIME. CL IN REACH, WILL CONT TO MONITOR
[2018-05-29] VITALS: BP 104/62
[2018-05-29 04:00] VITALS: BP 141/69
[2018-05-29 06:47] LABS: MCH 28.5 pg (26.0-34.0); MCHC 33.2 g/dL (31.0-37.0); MEAN PLATELET VOLUME 9.9 fL (7.4-10.4); PLATELET COUNT 204 10x3/uL (130-400); RDW 14.4 % (11.5-14.5); WBC 3.9 10x3/uL (4.8-10.8)
[2018-05-29 07:11] LABS: CALC OSMOLALITY 279 mosm/kg (275-300); CALCIUM 8.2 mg/dL (8.5-10.1); CARBON DIOXIDE 21.6 mmol/L (21.0-32.0); CHLORIDE - SERUM 107 mmol/L (98-107); CREATININE - SERUM 0.5 mg/dL (0.6-1.3); GLUCOSE 145 mg/dL (74-106); POTASSIUM - SERUM 3.4 mmol/L (3.5-5.1); SODIUM 140 mmol/L (136-145); eGFR NON AFRICAN AMERICAN > 90 mL/min (90-120)
[2018-05-29 07:12] LABS: MAGNESIUM - SERUM 1.8 mg/dL (1.8-2.4); PHOSPHOROUS 3.1 mg/dL (2.5-4.9); UREA NITROGEN 7 mg/dL (7-18)
[2018-05-29 07:16] LABS: HEMOGLOBIN 9.3 g/dL (12-16); RBC 3.26 10x6/uL (4.00-5.40)
[2018-05-29 07:17] LABS: MCV 85.9 fL (80.0-100.0)
[2018-05-29 07:44] LABS: LYMPHOCYTES 63 % (15-50); MONOCYTES 2 % (2-11); NEUTROPHILS 35 % (40-80); PLATELET ESTIMATE NORMAL
[2018-05-29 07:53] VITALS: BP 129/69
--- NOTE | 2018-05-29 09:18 | NUR ---
PT SITTING UP IN BED. DENIES PAIN AT THIS TIME. ROOM AIR. R PICC LINE WITH BANANA BAG @ 75 CC/HR AND NS @ 100 CC/HR. L UPPER ARM MIDLINE SL. VITALS STABLE. A/O X 4. UP AB NBA. NORMAL SINUS ON TELE. TOOK MEDS WITHOUT DIFFICULTY. NO EDEMA NOTED. LUNGS CLEAR. HEART RRR. RADIAL PULSES 2+ LEEROY EQUAL. PEDAL PULSES 2+ LEEROY EQUAL. CAP REFILL <3. SKIN WARM, DRY, PINK, TURGOR <3. NO FURTHER CONCERNS AT THIS TIME. BED LOWERED AND LOCKED. CL IN REACH. WILL CPOC.
--- NOTE | 2018-05-29 09:21 | NUR ---
PT K+ 3.4. ELECTROLYTE PROTOCOL FOLLOWED. RECHECK AT 1300.
--- NOTE | 2018-05-29 09:28 | NUR ---
Nutrition Follow Up: Reviewed labs and TPN orders with pharmacy No adjustments needed today RD following
--- NOTE | 2018-05-29 11:52 | NUR ---
PT C/O PAIN IN ABD. ULTRAM GIVEN PO. TOOK MEDS WITHOUT DIFFICULTY. WILL CPOC.
[2018-05-29 11:59] VITALS: BP 129/81
--- NOTE | 2018-05-29 12:02 | NUR ---
PT AOX4 RESP EVEN AND NONLABORED PT DENIES NEEDS AT THIS TIME WILL CONTINUE POC
--- NOTE | 2018-05-29 14:04 | NUR ---
PT REQUESTED MORPHINE FOR PAIN. MEDICATION HAS BEEN DC'D. WILL CALL TO GET RESCHEDULED.
[2018-05-29 16:06] VITALS: BP 129/72
--- NOTE | 2018-05-29 19:24 | NUR ---
PATIENT RESTING IN BED AND DENIES NEEDS AT THIS TIME. BED IN LOWEST POSITION AND CALL LIGHT WITHIN REACH. ENCOURAGED THE PATIENT TO CALL IF SHE HAS NEEDS. WILL CONTINUE TO MONITOR.
[2018-05-29 20:14] VITALS: BP 131/78
[2018-05-30 00:51] VITALS: BP 135/70
[2018-05-30 05:17] VITALS: BP 128/83
[2018-05-30 06:54] LABS: CALC OSMOLALITY 274 mosm/kg (275-300); CARBON DIOXIDE 25.6 mmol/L (21.0-32.0); CHLORIDE - SERUM 105 mmol/L (98-107); CREATININE - SERUM 0.4 mg/dL (0.6-1.3); GLUCOSE 111 mg/dL (74-106); MAGNESIUM - SERUM 1.7 mg/dL (1.8-2.4); PHOSPHOROUS 2.5 mg/dL (2.5-4.9); POTASSIUM - SERUM 3.8 mmol/L (3.5-5.1); SODIUM 138 mmol/L (136-145); UREA NITROGEN 6 mg/dL (7-18); eGFR NON AFRICAN AMERICAN > 90 mL/min (90-120)
[2018-05-30 07:21] LABS: BASOPHILS 0.8 % (0-2); EOSINOPHILS 2.8 % (0-7); HEMATOCRIT 29.7 % (36.0-48.0); HEMOGLOBIN 9.6 g/dL (12-16); IMMATURE GRANULOCYTES 0.5 % (0-5); LYMPHOCYTES 40.1 % (15-50); MCH 28.1 pg (26.0-34.0); MCHC 32.3 g/dL (31.0-37.0); MCV 86.8 fL (80.0-100.0); MEAN PLATELET VOLUME 10.2 fL (7.4-10.4); MONOCYTES 8.6 % (2-11); NEUTROPHILS 47.2 % (40-80); PLATELET COUNT 215 10x3/uL (130-400); RBC 3.42 10x6/uL (4.00-5.40); RDW 14.5 % (11.5-14.5)
[2018-05-30 07:39] VITALS: BP 129/72
--- NOTE | 2018-05-30 10:05 | NUR ---
PT AOX4 RESP EVEN AND NONLABORED PT DENIES NEEDS AT THIS TIME WILL CONTINUE TO MONITOR
[2018-05-30 11:36] VITALS: BP 128/76
--- NOTE | 2018-05-30 18:36 | NUR ---
PATIENT IN BED, SKIN W/D TO TOUCH, COLOR PINK, RESP. REGULAR AND EVEN AT 20. ABDOMEN SOFT WITH BS + IN ALL 4 QUADS. PT. DENIES C/O PAIN OR NAUSEA AT THIS TIME. IV RIGHT ARM PIC INTACT INFUSING TPN AT 5, LEFT ARM MIDLINE INTACT WITH NORMAL SALINE INFUSING AT 100 WITH NO REDNESS OR SWELLING NOTED. C/L WITHIN REACH AND SR'S UP X'S 2 AND BED IN LOWEST POSITION.
[2018-05-30 20:00] VITALS: BP 108/79
--- NOTE | 2018-05-30 20:15 | NUR ---
PATIENT RESTING IN BED WITH NO S/S OF DISTRESS AND DENIES NEEDS AT THIS TIME. ADMINISTERED MEDS PER ORDERS, COMPLETED ASSESSMENT, AND CHECKED THE PATIENT'S VITALS. BED IN LOWEST POSITION AND CALL LIGHT WITHIN REACH. ENCOURAGED THE PATIENT TO CALL IF SHE HAS NEEDS. WILL CONTINUE TO MONITOR.
[2018-05-31 00:10] VITALS: BP 90/52
[2018-05-31 02:20] LABS: COLOR YELLOW (YELLOW)
[2018-05-31 02:21] LABS: APPEARANCE HAZY (CLEAR); BACTERIA MANY /hpf (NONE SEEN); BILIRUBIN NEGATIVE (NEGATIVE); EPITHELIAL CELLS NSEEN /hpf (0-5); GLUCOSE NEGATIVE (NEGATIVE); KETONE NEGATIVE (NEGATIVE); NITRITE POSITIVE (NEGATIVE); PROTEIN NEGATIVE (NEGATIVE); RED CELLS - URINE 0-5 /hpf (0-5); UROBILINOGEN NORMAL (NORMAL); WHITE CELLS - URINE 0-5 /hpf (0-5)
[2018-05-31 04:00] VITALS: BP 115/64
[2018-05-31 07:37] LABS: CALC OSMOLALITY 276 mosm/kg (275-300); CALCIUM 8.1 mg/dL (8.5-10.1); CARBON DIOXIDE 26.1 mmol/L (21.0-32.0); CHLORIDE - SERUM 104 mmol/L (98-107); CREATININE - SERUM 0.5 mg/dL (0.6-1.3); GLUCOSE 144 mg/dL (74-106); MAGNESIUM - SERUM 1.8 mg/dL (1.8-2.4); POTASSIUM - SERUM 3.7 mmol/L (3.5-5.1); SODIUM 138 mmol/L (136-145); UREA NITROGEN 7 mg/dL (7-18); eGFR NON AFRICAN AMERICAN > 90 mL/min (90-120)
--- NOTE | 2018-05-31 07:47 | NUR ---
AM MEDS GIVEN AT THIS TIME. NEW BAG OF SALINE HUNG AT THIS TIME TO INFUSE TO RT UPPER ARM PICC. LT UPPER ARM MIDLINE SL. PT A/O X4, RESP EVEN AND NONLABORED ON RA. PT DENIES ANY NEEDS AT THIS TIME. CALL LIGHT IN REACH, NAD NOTED, WILL CONTINUE PLAN OF CARE.
[2018-05-31 07:54] LABS: BASOPHILS 0.6 % (0-2); EOSINOPHILS 1.9 % (0-7); HEMOGLOBIN 9.4 g/dL (12-16); IMMATURE GRANULOCYTES 0.6 % (0-5); MCH 28.3 pg (26.0-34.0); MCHC 32.4 g/dL (31.0-37.0); MCV 87.3 fL (80.0-100.0); MEAN PLATELET VOLUME 10.3 fL (7.4-10.4); MONOCYTES 9.3 % (2-11); NEUTROPHILS 62.6 % (40-80); PLATELET COUNT 221 10x3/uL (130-400); RBC 3.32 10x6/uL (4.00-5.40); RDW 14.4 % (11.5-14.5); WBC 6.4 10x3/uL (4.8-10.8)
[2018-05-31 08:42] VITALS: BP 104/87
[2018-05-31 12:00] VITALS: BP 138/82
--- NOTE | 2018-05-31 12:17 | MORECARE ---
CASE MANAGEMENT DISCHARGE SUMMARY PATIENT: MIC RIVERA UNIT: [id number] ADM DATE: 05/14/18 AGE: 52 : 65 SEX: F ROOM/BED: D.1202 AUTHOR: FISH,DOC PHYSICIAN: REFERRING PHYSICIAN: DELILAH AGUDELO MD DATE OF SERVICE: 05/31/18 Discharge Plan Patient Name: MIC RIVERA Facility: [facility]:[place] : 1965 Planned Disposition: Home Anticipated Discharge Date: Discharge Date: Expected LOS: Initial Reviewer: [email or web address] Initial Review Date: 05/18/2018 Generated: 05/31/18 1:16 pm Comments DCP- Discharge Planning Updated by [email or web address]: Linsey Loo on 05/31/18 11:[address] 1100 CM SPOKE WITH PATIENT TO CONFIRM PROVIDERS AT DISCHARGE. INFUSION- [facility]. SHE WOULD LIKE TO GO HOME TODAY IF POSSIBLE.. TC TO [facility] AND SPOKE WITH JOCELINE. [facility] HAS ACCEPTED THE PATIENT AND CAN PROVIDE HER CARE. TC TO [facility]. LEFT MESSAGE. AWAIT CALL BACK.. DR MOONEY ROUNDING ON UNIT. HE IS STATES SHE CAN BE DISCHARGE WHEN ARRANGEMENTS ARE COMPLETED. HE STATES DR HUTCHINS WILL NEED TO ORDER THE TPN. DR HUTCHINS IS PATIENT'S PRIMARY MD. TC TO DR HUTCHINS IN [facility] [place] AT [phone]. CLINICAL FAXED TO [facility] OF PT'S COURSE AND CONFIRM HE WILL ORDER TPN AND ASSUME PRIMARY CARE. FAX NUMBER [phone]. DCP- Discharge Planning Updated by [id number]: Madelin Stone on 05/28/18 1:[address] CM spoke with Melania from [facility] about LTACH referral. She informed CM that clinicals have been submitted to [employer] for auth. Expect to get determination early part of next week. Patient informed of status of referral and verbalized understanding. CM will continue to follow and assist as needed with discharge planning / needs. DCP- Discharge Planning Updated by [id number]: Madelin Stone on 05/27/18 2:[address]ARAN and Dr. Agudelo met with patient together to discuss discharge planning. Dr. Agudelo informed patient that he would not sign Hospice Eval orders as patient does not qualify for Hospice. Dr. Agudelo informed patient that she has two options for discharge: LTACH or Home with Home Health. Patient stated she wanted to discharge to LTACH. CM will continue to follow and assist as needed with discharge planning / needs. DCP- Discharge Planning Updated by [id number]: Madelin Stone on 05/27/18 1:[address] CM received call from patient's daughter stating they have decided to go home with [facility]. Daughter states she has personally called Dr. Mcgowan and he is willing to accept patient to home hospice. CM informed daughter that patient has instructed CM to set up LTACH and that CM would have to get direct instructions from patient to change discharge plan. CM met with patient. Patient is very tearful and informed CM that she just wants to go home. Patient told CM that she has decided to change discharge plan to Home Hospice with [facility]. Patient signed CHU for [facility]. CM called Dr. Agudelo for Hospice orders. Dr Agudelo refused hospice orders. States patient is not appropriate for hospice and that he will speak with Dr. Mcgowan. CM awaiting direction from Dr. Agudelo. DCP- Discharge Planning Updated by [id number]: Madelin Stone on 05/27/18 1:[address] CM was called by nurse, Sidra, to meet with patient about discharge planning. CM met with patient who was tearful. Patient states that her daughter is trying to set her up with hospice. Patient ask CM why her daughter would do that. Asked CM if she was dying. CM informed patient that there was nothing in her record that would lead CM to believe that she was dying or would qualify for Hospice. CM asked patient what she wanted CM to set her up with regarding her discharge planning. Patient states she wants to go to LTACH. Patient choice [facility] in [place]. CM called [facility], spoke with Mary Gallagher about referral. Faxed records as requested. Mary informed CM that Melania would come evaluate patient tomorrow and they would fax clinicals to patient's insurance company for auth. States it usually takes a few days to obtain auth. CM informed patient of status of referral. Patient verbalized understanding and satisfaction with discharge plan. CM will continue to follow and assist as needed with discharge planning / needs. DCP- Discharge Planning Updated by [id number]: Madelin Stone on 05/26/18 6:[address] CM spoke with patient and spouse about their concerns with pain management if patient is discharged to home. Both are in agreement to LTACH referral to [facility] in [place]. CM unable to reach referral intake at this time. Will follow up tomorrow with referral. DCP- Discharge Planning Updated by [id number]: Madelin Stone on 05/26/18 6:[address] CM received call back from [facility] [employer]. Stated patient's insurance would pay for TPN 100%. CM will fax additional orders for TPN when they are finalized for discharge. DCP- Discharge Planning Updated by [id number]: Madelin Stone on 05/26/18 1:[address] CM spoke with [facility] about referral. Faxed records as requested. Awaiting call back about insurance coverage. DCP- Discharge Planning Updated by [id number]: Madelin Stone on 05/26/18 1:[address] CM called [facility]. Spoke with Joceline about referral. Joceline stated she did not know if they would be able to accept a TPN patient. CM faxed records as requested. Awaiting call back from [facility] with determination of acceptance. DCP- Discharge Planning Updated by [id number]: Madelin Stone on 05/26/18 1:[address] CM met with patient about discharge planning with TPN. Patient states she would prefer to discharge to home with TPN. Per patient's request CM spoke with patient's daughter about home health. Daughter verbalized her concerns about patient being discharged to home related to pain control. Daughter states they were told by GI doctor that they would be set up with a pain management doctor to help make sure her pain is controlled. CM informed daughter that I would relay her concern to the attending physician and the GI doctor. CM informed daughter that I was not under the impression that the plan was to discharge the patient today, but I did need to start working on setting up home health and infusion company for future discharge. Daughter verbalized understanding and selected [facility]. CM informed her that [facility] had informed CM yesterday that they were currently unable to accept patients prior to Thursday. Daughter stated she would not select a different home health, that the patient would just have to stay in the hospital until Thursday. Daughter also selected Infusion companies. [facility] and [facility]. Stated to use which ever one [facility] works with the most. Patient signed patient choice form. DCP- Discharge Planning Updated by [id number]: Madelin Stone on 05/25/18 3:[address] CM received order to speak with patient / family about LTAC placement for TPN. Patient is not on TPN at this time. She is on a clear liquid diet. CM spoke with patient and family about order to discuss LTAC in case patient ended up on TPN. CM explained LTAC services and Home Health services. Patient and spouse verbalized understanding and at this time do not want to make any decisions about LTAC, but agree to consider it if/when the patient gets TPN. CM will continue to follow and assist as needed with discharge planning / needs. DCP- Discharge Planning Updated by [id number]: Radha Arias on 05/18/18 11:[address] Patient Name: MIC RIVERA Admission Status: ER Accout number: [id number] Admission Date: 05-14-2018 : 1965 Admission Diagnosis: Attending: DELILAH AGUDELO Current LOS: 4 Anticipated DC Date: Planned Disposition: Home Primary Insurance: [employer] [facility] [facility] Discharge Planning Comments: CM MET WITH PATIENT ABOUT DC PLANNING/NEEDS. STATES PLANS TO DC TO HOME WITH . DENIES NEEDS AT THIS TIME. CM WILL FOLLOW AND ASSIST NEEDED WITH DC PLANNING/NEEDS. Can Line Operator: Radha Arias DCPIA - Discharge Planning Initial Assessment Updated by [id number]: Radha Arias on 05/18/18 12:44 pm * Is the patient Alert and Oriented? Yes * PCP HUTCHINS * Pharmacy [facility] * Preadmission Environment Home with Family * ADLs Independent * Equipment None * List name and contact numbers for known caregivers / representatives who currently or will assist patient after discharge: JAUN,, [phone] * Community resources currently utilized None * Additional services required to return to the preadmission environment? No * Can the patient safely return to the preadmission environment? Yes * Has this patient been hospitalized within the prior 30 days at any hospital? Yes Coverage Notice Reviewer: [id number] - Madelin Stone Notice Issued Date-Time: 05/27/2018 14:05 Notice Type: Patient Choice Letter Notice Delivered To: Patient Relationship to Patient: Self Cableman Name: Delivery Method: HAND - Hand Delivered Katie Days: Prior Verbal Notification: Recipient Understood Notice: Yes Recipient Signature: Yes Med Rec Note Co-signed by Attending: Coverage Notice Comment: [facility] Reviewer: [id number] Teo Stone Notice Issued Date-Time: 05/26/2018 14:22 Notice Type: Patient Choice Letter Notice Delivered To: Patient Relationship to Patient: Self Cableman Name: Delivery Method: HAND - Hand Delivered Katie Days: Prior Verbal Notification: Recipient Understood Notice: Yes Recipient Signature: Yes Med Rec Note Co-signed by Attending: Coverage Notice Comment: [facility] or [facility] Last DP export: 05/28/18 1:22 p Patient Name: MIC RIVERA Page [id number] at 1217 All edits/amendments must be made on the electronic document DICTATION DATE: 05/31/18 1216 AMMONIA DISTILLER: NICHELLE 05/31/18 1216 RPT#: [id number] DC DATE: STATUS: ADM IN [facility] [address] [place] [address] END OF REPORT
--- NOTE | 2018-05-31 12:38 | NUR ---
Nutrition follow-up: chart reviewed. Labs: PO4 low, mag low. TPN formula adjusted and order sent to pharmacy IVF: NS @ 100 ml/hr continues May need to decrease rate due to TPN now @ 75 ml/hr. RDN will speak with nursing. RDN following.
--- NOTE | 2018-05-31 12:57 | NUR ---
CALLED PHARMACY AND SPOKE WITH AURY, INFORMED HIM THAT I NEED MEDICATIONS FOR PT.
--- NOTE | 2018-05-31 15:10 | MORECARE ---
CASE MANAGEMENT DISCHARGE SUMMARY PATIENT: MIC RIVERA UNIT: [id number] ADM DATE: 05/14/18 AGE: 52 : 65 SEX: F ROOM/BED: D.1202 AUTHOR: FISH,DOC PHYSICIAN: REFERRING PHYSICIAN: DELILAH AGUDELO MD DATE OF SERVICE: 05/31/18 Discharge Plan Patient Name: MIC RIVERA Facility: [facility]:[place] : 1965 Planned Disposition: Home Anticipated Discharge Date: Discharge Date: Expected LOS: Initial Reviewer: [email or web address] Initial Review Date: 05/18/2018 Generated: 05/31/18 4:10 pm Comments DCP- Discharge Planning Updated by [id number]: Linsey Loo on 05/31/18 2:[address] TELEPHONED [facility]. SPOKE Rene/ BETTY TO UPDATE. PROVIDED DR HUTCHINS'S OFFICE PHONE NUMBER HE WILL BE ORDERING THE TPN. ADVISED I HAD FAXED HIM CLINICAL AND COPY OF MARS. DCP- Discharge Planning Updated by [id number]: Linsey Loo on 05/31/18 2:[address] CLINICAL UPDATE FAXED TO [facility]. DCP- Discharge Planning Updated by [id number]: Linsey Loo on 05/31/18 11:[address] 1100 CM SPOKE WITH PATIENT TO CONFIRM PROVIDERS AT DISCHARGE. IN[facility]USION- [facility]. SHE WOULD LIKE TO GO HOME TODAY IF POSSIBLE.. TC TO [facility] AND SPOKE WITH JOCELINE. [facility] HAS ACCEPTED THE PATIENT AND CAN PROVIDE HER CARE. TC TO [facility]. LEFT MESSAGE. AWAIT CALL BACK.. DR MOONEY ROUNDMARLEE ON UNIT. HE IS STATES SHE CAN BE DISCHARGE WHEN ARRANGEMENTS ARE COMPLETED. HE STATES DR HUTCHINS WILL NEED TO ORDER THE TPN. DR HUTCHINS IS PATIENT'S PRIMARY MD. TC TO DR HUTCHINS IN [facility] AT [phone]. CLINICAL FAXED TO [facility] OF PT'S COURSE AND CONFIRM HE WILL ORDER TPN AND ASSUME PRIMARY CARE. FAX NUMBER [phone]. DCP- Discharge Planning Updated by [id number]: Madelin Stone on 05/28/18 1:[address] CM spoke with Melania from [facility] about LTACH referral. She informed CM that clinicals have been submitted to insurance [employer] for auth. Expect to get determination early part of next week. Patient informed of status of referral and verbalized understanding. CM will continue to follow and assist as needed with discharge planning / needs. DCP- Discharge Planning Updated by [id number]: Madelin Stone on 05/27/18 2:[address]ARAN and Dr. Agudelo met with patient together to discuss discharge planning. Dr. Agudelo informed patient that he would not sign Hospice Eval orders as patient does not qualify for Hospice. Dr. Agudelo informed patient that she has two options for discharge: LTACH or Home with Home Health. Patient stated she wanted to discharge to LTACH. CM will continue to follow and assist as needed with discharge planning / needs. DCP- Discharge Planning Updated by [id number]: Madelin Stone on 05/27/18 1:[address] CM received call from patient's daughter stating they have decided to go home with [facility]. Daughter states she has personally called Dr. Mcgowan and he is willing to accept patient to home hospice. CM informed daughter that patient has instructed CM to set up LTACH and that CM would have to get direct instructions from patient to change discharge plan. CM met with patient. Patient is very tearful and informed CM that she just wants to go home. Patient told CM that she has decided to change discharge plan to Home Hospice with [facility]. Patient signed CHU for [facility]. CM called Dr. Agudelo for Hospice orders. Dr Agudelo refused hospice orders. States patient is not appropriate for hospice and that he will speak with Dr. Mcgowan. CM awaiting direction from Dr. Agudelo. DCP- Discharge Planning Updated by [id number]: Madelin Stone on 05/27/18 1:[address] CM was called by nurse, Sidra, to meet with patient about discharge planning. CM met with patient who was tearful. Patient states that her daughter is trying to set her up with hospice. Patient ask CM why her daughter would do that. Asked CM if she was dying. CM informed patient that there was nothing in her record that would lead CM to believe that she was dying or would qualify for Hospice. CM asked patient what she wanted CM to set her up with regarding her discharge planning. Patient states she wants to go to LTACH. Patient [facility] [place]. CM called [facility], spoke with Mary Gallagher about referral. Faxed records as requested. Mary informed CM that Melania would come evaluate patient tomorrow and they would fax clinicals to patient's insurance company for auth. States it usually takes a few days to obtain auth. CM informed patient of status of referral. Patient verbalized understanding and satisfaction with discharge plan. CM will continue to follow and assist as needed with discharge planning / needs. DCP- Discharge Planning Updated by [id number]: Madelin Stone on 05/26/18 6:[address] CM spoke with patient and spouse about their concerns with pain management if patient is discharged to home. Both are in agreement to LTACH referral to [facility] in [place]. CM unable to reach referral intake at this time. Will follow up tomorrow with referral. DCP- Discharge Planning Updated by [id number]: Madelin Stone on 05/26/18 6:[address] CM received call back from [employer]. Stated patient's insurance would pay for TPN 100%. CM will fax additional orders for TPN when they are finalized for discharge. DCP- Discharge Planning Updated by [id number]: Madelin Stone on 05/26/18 1:[address] CM spoke with [facility] about referral. Faxed records as requested. Awaiting call back about insurance coverage. DCP- Discharge Planning Updated by [id number]: Madelin Stone on 05/26/18 1:[address] CM called [facility]. Spoke with Joceline about referral. Joceline stated she did not know if they would be able to accept a TPN patient. CM faxed records as requested. Awaiting call back from [facility] with determination of acceptance. DCP- Discharge Planning Updated by [id number]: Madelin Stone on 05/26/18 1:[address] CM met with patient about discharge planning with TPN. Patient states she would prefer to discharge to home with TPN. Per patient's request CM spoke with patient's daughter about home health. Daughter verbalized her concerns about patient being discharged to home related to pain control. Daughter states they were told by GI doctor that they would be set up with a pain management doctor to help make sure her pain is controlled. CM informed daughter that I would relay her concern to the attending physician and the GI doctor. CM informed daughter that I was not under the impression that the plan was to discharge the patient today, but I did need to start working on setting up home health and infusion company for future discharge. Daughter verbalized understanding and selected [facility]. CM informed her that [facility] had informed CM yesterday that they were currently unable to accept patients prior to Thursday. Daughter stated she would not select a different home health, that the patient would just have to stay in the hospital until Thursday. Daughter also selected Infusion companies. [facility] and [facility]. Stated to use which ever one [facility] works with the most. Patient signed patient choice form. DCP- Discharge Planning Updated by [id number]: Madelin Stone on 05/25/18 3:[address] CM received order to speak with patient / family about LTAC placement for TPN. Patient is not on TPN at this time. She is on a clear liquid diet. CM spoke with patient and family about order to discuss LTAC in case patient ended up on TPN. CM explained LTAC services and Home Health services. Patient and spouse verbalized understanding and at this time do not want to make any decisions about LTAC, but agree to consider it if/when the patient gets TPN. CM will continue to follow and assist as needed with discharge planning / needs. DCP- Discharge Planning Updated by [id number]: Radha Arias on 05/18/18 11:[address] Patient Name: MIC RIVERA Admission Status: ER Accout number: [id number] Admission Date: 05-14-2018 : 1965 Admission Diagnosis: Attending: DELILAH AGUDELO Current LOS: 4 Anticipated DC Date: Planned Disposition: Home Primary Insurance: [employer] Discharge Planning Comments: CM MET WITH PATIENT ABOUT DC PLANNING/NEEDS. STATES PLANS TO DC TO HOME WITH . DENIES NEEDS AT THIS TIME. CM WILL FOLLOW AND ASSIST NEEDED WITH DC PLANNING/NEEDS. Sweat Band Sewer: Radha Arias DCPIA - Discharge Planning Initial Assessment Updated by [id number]: Radha Arias on 05/18/18 12:44 pm * Is the patient Alert and Oriented? Yes * PCP HUTCHINS * Pharmacy [facility] * Preadmission Environment Home with Family * ADLs Independent * Equipment None * List name and contact numbers for known caregivers / representatives who currently or will assist patient after discharge: SHINE MARTINEZ, [phone] * Community resources currently utilized None * Additional services required to return to the preadmission environment? No * Can the patient safely return to the preadmission environment? Yes * Has this patient been hospitalized within the prior 30 days at any hospital? Yes Coverage Notice Reviewer: [id number] Stone Notice Issued Date-Time: 05/27/2018 14:05 Notice Type: Patient Choice Letter Notice Delivered To: Patient Relationship to Patient: Self Choir Accompanist Name: Delivery Method: HAND - Hand Delivered Katie Days: Prior Verbal Notification: Recipient Understood Notice: Yes Recipient Signature: Yes Med Rec Note Co-signed by Attending: Coverage Notice Comment: [facility] Reviewer: [id number] Stone Notice Issued Date-Time: 05/26/2018 14:22 Notice Type: Patient Choice Letter Notice Delivered To: Patient Relationship to Patient: Self Choir Accompanist Name: Delivery Method: HAND - Hand Delivered Katie Days: Prior Verbal Notification: Recipient Understood Notice: Yes Recipient Signature: Yes Med Rec Note Co-signed by Attending: Coverage Notice Comment: [facility] or [facility] Last DP export: 05/31/18 11:16 am Patient Name: MIC RIVERA Page [id number] at 1510 All edits/amendments must be made on the electronic document DICTATION DATE: 05/31/18 [address] SPOTTER: NICHELLE 05/31/18 1510 RPT#: [id number] DC DATE: STATUS: ADM IN [facility] [address] [place] [address] END OF REPORT
--- NOTE | 2018-05-31 17:15 | NUR ---
BLOOD SUGAR OF 206, 4UNITS OF INSULIN GIVEN PER S/S. ALSO GAVE 100MG OF ULTRAM FOR PAIN LEVEL OF 8/10, AND 650MG TYLENOL FOR FEVER. PT DENIES ANY OTHER NEEDS AT THIS TIME. CALL LIGHT IN REACH, AT BEDSIDE, DR. MARROQUIN AT BEDSIDE TALKING TO PT.
[2018-05-31 17:19] VITALS: BP 136/74
--- NOTE | 2018-05-31 19:23 | NUR ---
PATIENT RESTING IN BED WITH NO S/S OF DISTRESS AND DENIES NEEDS AT THIS TIME. BED IN LOWEST POSITION AND CALL LIGHT WITHIN REACH. ENCOURAGED THE PATIENT TO CALL IF SHE HAS NEEDS. WILL CONTINUE TO MONITOR.
[2018-05-31 21:02] VITALS: BP 117/70
[2018-06-01] VITALS: BP 100/64
[2018-06-01 04:00] VITALS: BP 136/86
[2018-06-01 06:35] LABS: CALC OSMOLALITY 273 mosm/kg (275-300); CALCIUM 8.1 mg/dL (8.5-10.1); CARBON DIOXIDE 24.9 mmol/L (21.0-32.0); CHLORIDE - SERUM 102 mmol/L (98-107); CREATININE - SERUM 0.5 mg/dL (0.6-1.3); GLUCOSE 176 mg/dL (74-106); MAGNESIUM - SERUM 1.7 mg/dL (1.8-2.4); PHOSPHOROUS 1.6 mg/dL (2.5-4.9); POTASSIUM - SERUM 3.6 mmol/L (3.5-5.1); SODIUM 136 mmol/L (136-145); UREA NITROGEN 6 mg/dL (7-18); eGFR NON AFRICAN AMERICAN > 90 mL/min (90-120)
[2018-06-01 06:39] LABS: BASOPHILS 0.5 % (0-2); HEMATOCRIT 29.2 % (36.0-48.0); HEMOGLOBIN 9.5 g/dL (12-16); IMMATURE GRANULOCYTES 0.5 % (0-5); LYMPHOCYTES 15.4 % (15-50); MCH 28.3 pg (26.0-34.0); MCHC 32.5 g/dL (31.0-37.0); MCV 86.9 fL (80.0-100.0); MEAN PLATELET VOLUME 10.3 fL (7.4-10.4); MONOCYTES 7.7 % (2-11); NEUTROPHILS 74.9 % (40-80); PLATELET COUNT 208 10x3/uL (130-400); RBC 3.36 10x6/uL (4.00-5.40); RDW 14.8 % (11.5-14.5); WBC 7.8 10x3/uL (4.8-10.8)
[2018-06-01 07:54] VITALS: BP 121/71
[2018-06-01 12:23] VITALS: BP 122/69
--- NOTE | 2018-06-01 12:43 | NUR ---
ADMINISTERED ULTRAM FOR PAIN LEVEL OF 9/10. PT DENIES ANY OTHER NEEDS AT THIS TIME. CALL LIGHT IN REACH, NAD NOTED, WILL CONTINUE TO MONITOR.
--- NOTE | 2018-06-01 13:00 | NUR ---
Nutrition follow-up: chart reviewed TPN infusing @ 75 ml/hr with intralipids 20% 250 ml Q 72 hours Labs reviewed; PO4, Mg low. PO4 being replaced. RDN will adjust TPN. RDN following.
--- NOTE | 2018-06-01 14:12 | NUR ---
CALLED DR. HOLDEN AND NOTIFIED HIM THAT EVERYTHING IS SET UP FOR PT TO BE D/C TODAY.
[2018-06-01] MEDS ORDERED: Nicoderm [PBKC] TRANSDERM (14:15)
[2018-06-01] MEDS ORDERED: MACROBID100 MG PO (14:16)
[2018-06-01] MEDS ORDERED: CATAPRES0.1 MG PO (14:16)
[2018-06-01] MEDS ORDERED: PROTONIX40 MG PO (14:17)
[2018-06-01] MEDS ORDERED: OXYBUTYNIN CHLOR5 MG PO (14:17)
[2018-06-01] MEDS ORDERED: CREON (PANCRELI1 CAP PO (14:18)
--- NOTE | 2018-06-01 14:51 | MORECARE ---
CASE MANAGEMENT DISCHARGE SUMMARY PATIENT: MIC RIVERA UNIT: [id number] ADM DATE: 05/14/18 AGE: 52 : 65 SEX: F ROOM/BED: D.1202 AUTHOR: FISH,DOC PHYSICIAN: REFERRING PHYSICIAN: DELILAH AGUDELO MD DATE OF SERVICE: 06/01/18 Discharge Plan Patient Name: MIC RIVERA Facility: [facility]:[place] : 1965 Planned Disposition: Home Anticipated Discharge Date: Discharge Date: Expected LOS: Initial Reviewer: [email or web address] Initial Review Date: 05/18/2018 Generated: 06/01/18 3:51 pm Comments DCP- Discharge Planning Updated by [id number]: Madelin Stone on 06/01/18 1:[address] CM called and spoke with Joceline at [facility]. They are prepared to admit patient tomorrow morning. CM called and spoke with Betty at [facility]. Faxed TPN orders as requested. They plan to deliver TPN to the hospital today around 1800 in preparation for discharge to home today. CM informed patient's nurse that Infusion company and home health are arranged and ready for patient discharge today. Gila notified Dr. Turk. CM informed patient of expected discharge to home today. Patient verbalized understanding and satisfaction with discharge plans. CM gave patient brochure with home health contact information. Informed patient that [facility] would bring her TPN to the hospital. Patient would go home with TPN and home health would admit her in the morning. Instructed patient if she has any problems with the TPN tonight or tomorrow morning before home health arrives, to call home health 22/09 at [phone]. Patient verbalized understanding. CM will continue to follow and assist as needed with discharge planning / needs. DCP- Discharge Planning Updated by [id number]: Linsey Loo on 05/31/18 2:[address] TELEPHONED [employer] [facility]. SPOKE W/ BETTY TO UPDATE. PROVIDED DR HUTCHINS'S OFFICE PHONE NUMBER HE WILL BE ORDERING THE TPN. ADVISED I HAD FAXED HIM CLINICAL AND COPY OF MARS. DCP- Discharge Planning Updated by [id number]: Linsey Loo on 05/31/18 2:[address] CLINICAL UPDATE FAXED TO [facility]. DCP- Discharge Planning Updated by [id number]: Linsey Loo on 05/31/18 11:[address] 1100 CM SPOKE WITH PATIENT TO CONFIRM PROVIDERS AT DISCHARGE. INFUSION- [facility]. SHE WOULD LIKE TO GO HOME TODAY IF POSSIBLE.. TC TO [facility] AND SPOKE WITH JOCELINE. [facility] HAS ACCEPTED THE PATIENT AND CAN PROVIDE HER CARE. TC TO [facility]. LEFT MESSAGE. AWAIT CALL BACK.. DR MOONEY ROUNDING ON UNIT. HE IS STATES SHE CAN BE DISCHARGE WHEN ARRANGEMENTS ARE COMPLETED. HE STATES DR HUTCHINS WILL NEED TO ORDER THE TPN. DR HUTCHINS IS PATIENT'S PRIMARY MD. TC TO DR [facility]UTCHINS IN [facility] AT [phone]. CLINICAL FAXED TO [facility] HIM OF PT'S COURSE AND CONFIRM HE WILL ORDER TPN AND ASSUME PRIMARY CARE. FAX NUMBER [phone]. DCP- Discharge Planning Updated by [id number]: Madelin Stone on 05/28/18 1:[address] CM spoke with Melania from [facility] about LTACH referral. She informed CM that clinicals have been submitted to [employer] for auth. Expect to get determination early part of next week. Patient informed of status of referral and verbalized understanding. CM will continue to follow and assist as needed with discharge planning / needs. DCP- Discharge Planning Updated by [id number]: Madelin Stone on 05/27/18 2:[address] CM and Dr. Agudelo met with patient together to discuss discharge planning. Dr. Agudelo informed patient that he would not sign Hospice Eval orders as patient does not qualify for Hospice. Dr. Agudelo informed patient that she has two options for discharge: LTACH or Home with Home Health. Patient stated she wanted to discharge to LTACH. CM will continue to follow and assist as needed with discharge planning / needs. DCP- Discharge Planning Updated by [id number]: Madelin Stone on 05/27/18 1:[address] CM received call from patient's daughter stating they have decided to go home with [facility]. Daughter states she has personally called Dr. Mcgowan and he is willing to accept patient to home hospice. CM informed daughter that patient has instructed CM to set up LTACH and that CM would have to get direct instructions from patient to change discharge plan. CM met with patient. Patient is very tearful and informed CM that she just wants to go home. Patient told CM that she has decided to change discharge plan to Home Hospice with [facility]. Patient signed CHU for [facility]. CM called Dr. Agudelo for Hospice orders. Dr Agudelo refused hospice orders. States patient is not appropriate for hospice and that he will speak with Dr. Mcgowan. CM awaiting direction from Dr. Agudelo. DCP- Discharge Planning Updated by [id number]: Madelin Stone on 05/27/18 1:[address] CM was called by nurse, Sidra, to meet with patient about discharge planning. CM met with patient who was tearful. Patient states that her daughter is trying to set her up with hospice. Patient ask CM why her daughter would do that. Asked CM if she was dying. CM informed patient that there was nothing in her record that would lead CM to believe that she was dying or would qualify for Hospice. CM asked patient what she wanted CM to set her up with regarding her discharge planning. Patient states she wants to go to LTACH. Patient choice [facility] in [place]. CM called [facility], spoke with Mary Gallagher about referral. Faxed records as requested. Mary informed CM that Melania would come evaluate patient tomorrow and they would fax clinicals to patient's insurance company for auth. States it usually takes a few days to obtain auth. CM informed patient of status of referral. Patient verbalized understanding and satisfaction with discharge plan. CM will continue to follow and assist as needed with discharge planning / needs. DCP- Discharge Planning Updated by [id number]: Madelin Stone on 05/26/18 6:[address] CM spoke with patient and spouse about their concerns with pain management if patient is discharged to home. Both are in agreement to LTACH referral to [facility] in [place]. CM unable to reach referral intake at this time. Will follow up tomorrow with referral. DCP- Discharge Planning Updated by [id number]: Madelin Stone on 05/26/18 6:[address] CM received call back from [employer]. Stated patient's insurance would pay for TPN 100%. CM will fax additional orders for TPN when they are finalized for discharge. DCP- Discharge Planning Updated by [id number]: Madelin Stone on 05/26/18 1:[address] CM spoke with [facility] about referral. Faxed records as requested. Awaiting call back about insurance coverage. DCP- Discharge Planning Updated by [id number]: Madelin Stone on 05/26/18 1:[address] CM called [facility]. Spoke with Joceline about referral. Joceline stated she did not know if they would be able to accept a TPN patient. CM faxed records as requested. Awaiting call back from [facility] with determination of acceptance. DCP- Discharge Planning Updated by [id number]: Madelin Stone on 05/26/18 1:[address] CM met with patient about discharge planning with TPN. Patient states she would prefer to discharge to home with TPN. Per patient's request CM spoke with patient's daughter about home health. Daughter verbalized her concerns about patient being discharged to home related to pain control. Daughter states they were told by GI doctor that they would be set up with a pain management doctor to help make sure her pain is controlled. CM informed daughter that I would relay her concern to the attending physician and the GI doctor. CM informed daughter that I was not under the impression that the plan was to discharge the patient today, but I did need to start working on setting up home health and infusion company for future discharge. Daughter verbalized understanding and selected [facility]. CM informed her that [facility] had informed CM yesterday that they were currently unable to accept patients prior to Thursday. Daughter stated she would not select a different home health, that the patient would just have to stay in the hospital until Thursday. Daughter also selected Infusion companies. [facility] and [facility]. Stated to use which ever one [facility] works with the most. Patient signed patient choice form. DCP- Discharge Planning Updated by [id number]: Madelin Stone on 05/25/18 3:[address] CM received order to speak with patient / family about LTAC placement for TPN. Patient is not on TPN at this time. She is on a clear liquid diet. CM spoke with patient and family about order to discuss LTAC in case patient ended up on TPN. CM explained LTAC services and Home Health services. Patient and spouse verbalized understanding and at this time do not want to make any decisions about LTAC, but agree to consider it if/when the patient gets TPN. CM will continue to follow and assist as needed with discharge planning / needs. DCP- Discharge Planning Updated by [id number]: Radha Arias on 05/18/18 11:[address] Patient Name: MIC RIVERA Admission Status: ER Accout number: [id number] Admission Date: 05-14-2018 : 1965 Admission Diagnosis: Attending: DELILAH AGUDELO Current LOS: 4 Anticipated DC Date: Planned Disposition: Home Primary Insurance: [employer] (PICA)ICE [employer] Discharge Planning Comments: CM MET WITH PATIENT ABOUT DC PLANNING/NEEDS. STATES PLANS TO DC TO HOME WITH . DENIES NEEDS AT THIS TIME. CM WILL FOLLOW AND ASSIST NEEDED WITH DC PLANNING/NEEDS. Vehicle Sales Professional: Radha Arias DCPIA - Discharge Planning Initial Assessment Updated by [id number]: Radha Arias on 05/18/18 12:44 pm * Is the patient Alert and Oriented? Yes * PCP HUTCHINS * Pharmacy [facility] * Preadmission Environment Home with Family * ADLs Independent * Equipment None * List name and contact numbers for known caregivers / representatives who currently or will assist patient after discharge: SHINE MARTINEZ, [phone] * Community resources currently utilized None * Additional services required to return to the preadmission environment? No * Can the patient safely return to the preadmission environment? Yes * Has this patient been hospitalized within the prior 30 days at any hospital? Yes Coverage Notice Reviewer: [email or web address] Teo Stone Notice Issued Date-Time: 05/27/2018 14:05 Notice Type: Patient Choice Letter Notice Delivered To: Patient Relationship to Patient: Self Supervisor Varnish Name: Delivery Method: HAND - Hand Delivered Katie Days: Prior Verbal Notification: Recipient Understood Notice: Yes Recipient Signature: Yes Med Rec Note Co-signed by Attending: Coverage Notice Comment: [facility] Reviewer: [id number] Stone Notice Issued Date-Time: 05/26/2018 14:22 Notice Type: Patient Choice Letter Notice Delivered To: Patient Relationship to Patient: Self Supervisor Varnish Name: Delivery Method: HAND - Hand Delivered Katie Days: Prior Verbal Notification: Recipient Understood Notice: Yes Recipient Signature: Yes Med Rec Note Co-signed by Attending: Coverage Notice Comment: [facility] Last DP export: 05/31/18 2:10 pm Patient Name: MIC RIVERA Page [id number] at 1451 All edits/amendments must be made on the electronic document DICTATION DATE: 06/01/181450 SYSTEMS SPEC: NICHELLE 06/01/181450 RPT#: [id number] DC DATE: STATUS: ADM IN [facility] [address] [place] [address] END OF REPORT
--- NOTE | 2018-06-01 16:35 | NUR ---
CALLED GI LAB AND SPOKE WITH MIMI LOPEZ ON [employer] TO HAVE THEM SCHEDULE A F/U APPT FOR PT IN 2-3 WEEKS WITH CORNELL COLE.
--- NOTE | 2018-06-01 17:37 | NUR ---
PROVIDED VERBAL AND WRITTEN DISCHARGE TEACHING TO PT, WHO VEBALIZED UNDERSTANDING REGARDING TEACHING. D/C LT UPPER ARM MIDLINE WITH TIP INTACT.
--- NOTE | 2018-06-01 19:48 | NUR ---
[facility] HERE FOR TNP SET UP.INSTRUCTIONS AND SUPPLIES GIVEN TO PATIENT PER [facility].
--- NOTE | 2018-06-01 20:21 | NUR ---
DISCHARGED TO HOME WITH [facility]. DISCHARGE INSTRUCTIONS GIVEN PER DAY SHIFT RN. PERSONAL BELONGINGS SENT WITH PATIENT.NO DISTRESS NOTED. NO COMPLAINTS VOICED.
--- NOTE | 2018-06-02 11:22 | MORECARE ---
CASE MANAGEMENT DISCHARGE SUMMARY PATIENT: MIC RIVERA UNIT: [id number] ADM DATE: 05/14/18 AGE: 52 : 65 SEX: F ROOM/BED: D.1202 AUTHOR: FISH,DOC PHYSICIAN: REFERRING PHYSICIAN: DELILAH AGUDELO MD DATE OF SERVICE: 06/02/18 Discharge Plan Patient Name: MIC RIVERA Facility: [facility]:[place] : 1965 Planned Disposition: Home Anticipated Discharge Date: Discharge Date: 06/01/2018 Expected LOS: Initial Reviewer: [id number] Initial Review Date: 05/18/2018 Generated: 06/02/18 12:21 pm Comments DCP- Discharge Planning Updated by [id number]: Madelin Stone on 06/01/18 1:[address] CM called and spoke with Joceline at [facility]. They are prepared to admit patient tomorrow morning. CM called and spoke with Betty at [facility]. Faxed TPN orders as requested. They plan to deliver TPN to the hospital today around 1800 in preparation for discharge to home today. CM informed patient's nurse that Infusion company and home health are arranged and ready for patient discharge today. Gila notified Dr. Turk. CM informed patient of expected discharge to home today. Patient verbalized understanding and satisfaction with discharge plans. CM gave patient brochure with home health contact information. Informed patient that [facility] would bring her TPN to the hospital. Patient would go home with TPN and home health would admit her in the morning. Instructed patient if she has any problems with the TPN tonight or tomorrow morning before home health arrives, to call home health 22/09 at [phone]. Patient verbalized understanding. CM will continue to follow and assist as needed with discharge planning / needs. DCP- Discharge Planning Updated by [id number]: Linsey Loo on 05/31/18 2:[address] TELEPHONED [employer] [facility]. SPOKE W/ BETTY TO UPDATE. PROVIDED DR HUTCHINS'S OFFICE PHONE NUMBER HE WILL BE ORDERING THE TPN. ADVISED I HAD FAXED HIM CLINICAL AND COPY OF MARS. DCP- Discharge Planning Updated by [id number]: Linsey Loo on 05/31/18 2:[address] CLINICAL UPDATE FAXED TO [facility]. DCP- Discharge Planning Updated by [id number]: Linsey Loo on 05/31/18 11:[address] 1100 CM SPOKE WITH PATIENT TO CONFIRM PROVIDERS AT DISCHARGE. [facility]ION- [facility]. SHE WOULD LIKE TO GO HOME TODAY IF POSSIBLE.. TC TO [facility] AND SPOKE WITH JOCELINE. [facility] HAS ACCEPTED THE PATIENT AND CAN PROVIDE HER CARE. TC TO [facility]. LEFT MESSAGE. AWAIT CALL BACK.. DR MOONEY ROUNDING ON UNIT. HE IS STATES SHE CAN BE DISCHARGE WHEN ARRANGEMENTS ARE COMPLETED. HE STATES DR HUTCHINS WILL NEED TO ORDER THE TPN. DR HUTCHINS IS PATIENT'S PRIMARY MD. TC TO DR HUTCHINS IN [facility] AT [phone]. CLINICAL FAXED TO [facility] HIM OF PT'S COURSE AND CONFIRM HE WILL ORDER TPN AND ASSUME PRIMARY CARE. FAX NUMBER [phone]. DCP- Discharge Planning Updated by [id number]: Madelin Stone on 05/28/18 1:[address] CM spoke with Melania from [facility] about LTACH referral. She informed CM that clinicals have been submitted to [employer] for auth. Expect to get determination early part of next week. Patient informed of status of referral and verbalized understanding. CM will continue to follow and assist as needed with discharge planning / needs. DCP- Discharge Planning Updated by [id number]: Madelin Stone on 05/27/18 2:[address] CM and Dr. Agudelo met with patient together to discuss discharge planning. Dr. Agudelo informed patient that he would not sign Hospice Eval orders as patient does not qualify for Hospice. Dr. Agudelo informed patient that she has two options for discharge: LTACH or Home with Home Health. Patient stated she wanted to discharge to LTACH. CM will continue to follow and assist as needed with discharge planning / needs. DCP- Discharge Planning Updated by [id number]: Madelin Stone on 05/27/18 1:[address] CM received call from patient's daughter stating they have decided to go home with [facility]. Daughter states she has personally called Dr. Mcgowan and he is willing to accept patient to home hospice. CM informed daughter that patient has instructed CM to set up LTACH and that CM would have to get direct instructions from patient to change discharge plan. CM met with patient. Patient is very tearful and informed CM that she just wants to go home. Patient told CM that she has decided to change discharge plan to Home Hospice with [facility]. Patient signed CHU for [facility]. CM called Dr. Agudelo for Hospice orders. Dr Agudelo refused hospice orders. States patient is not appropriate for hospice and that he will speak with Dr. Mcgowan. CM awaiting direction from Dr. Agudelo. DCP- Discharge Planning Updated by [id number]: Madelin Stone on 05/27/18 1:[address] CM was called by nurse, Sidra, to meet with patient about discharge planning. CM met with patient who was tearful. Patient states that her daughter is trying to set her up with hospice. Patient ask CM why her daughter would do that. Asked CM if she was dying. CM informed patient that there was nothing in her record that would lead CM to believe that she was dying or would qualify for Hospice. CM asked patient what she wanted CM to set her up with regarding her discharge planning. Patient states she wants to go to LTACH. Patient choice [facility]ACH in [place]. CM called [facility], spoke with Mary Gallagher about referral. Faxed records as requested. Mary informed CM that [facility] would come evaluate patient tomorrow and they would fax clinicals to patient's insurance company for auth. States it usually takes a few days to obtain auth. CM informed patient of status of referral. Patient verbalized understanding and satisfaction with discharge plan. CM will continue to follow and assist as needed with discharge planning / needs. DCP- Discharge Planning Updated by [id number]: Madelin Stone on 05/26/18 6:[address] CM spoke with patient and spouse about their concerns with pain management if patient is discharged to home. Both are in agreement to LTACH referral to [facility] in [place]. CM unable to reach referral intake at this time. Will follow up tomorrow with referral. DCP- Discharge Planning Updated by [id number]: Madelin Stone on 05/26/18 6:[address] CM received call back from [facility]. Stated patient's insurance would pay for TPN 100%. CM will fax additional orders for TPN when they are finalized for discharge. DCP- Discharge Planning Updated by [id number]: Madelin Stone on 05/26/18 1:[address] CM spoke with [facility] Infusion company about referral. Faxed records as requested. Awaiting call back about insurance coverage. DCP- Discharge Planning Updated by [id number]: Madelin Stone on 05/26/18 1:[address] CM called [facility]. Spoke with Joceline about referral. Joceline stated she did not know if they would be able to accept a TPN patient. CM faxed records as requested. Awaiting call back from [facility] with determination of acceptance. DCP- Discharge Planning Updated by [id number]: Madelin Stone on 05/26/18 1:[address] CM met with patient about discharge planning with TPN. Patient states she would prefer to discharge to home with TPN. Per patient's request CM spoke with patient's daughter about home health. Daughter verbalized her concerns about patient being discharged to home related to pain control. Daughter states they were told by GI doctor that they would be set up with a pain management doctor to help make sure her pain is controlled. CM informed daughter that I would relay her concern to the attending physician and the GI doctor. CM informed daughter that I was not under the impression that the plan was to discharge the patient today, but I did need to start working on setting up home health and infusion company for future discharge. Daughter verbalized understanding and selected [facility]. CM informed her that [facility] had informed CM yesterday that they were currently unable to accept patients prior to Thursday. Daughter stated she would not select a different home health, that the patient would just have to stay in the hospital until Thursday. Daughter also selected Infusion companies. [facility] and [facility]. Stated to use which ever one [facility] works with the most. Patient signed patient choice form. DCP- Discharge Planning Updated by [id number]: Madelin Stone on 05/25/18 3:[address] CM received order to speak with patient / family about LTAC placement for TPN. Patient is not on TPN at this time. She is on a clear liquid diet. CM spoke with patient and family about order to discuss LTAC in case patient ended up on TPN. CM explained LTAC services and Home Health services. Patient and spouse verbalized understanding and at this time do not want to make any decisions about LTAC, but agree to consider it if/when the patient gets TPN. CM will continue to follow and assist as needed with discharge planning / needs. DCP- Discharge Planning Updated by [id number]: Radha Arias on 05/18/18 11:[address] Patient Name: MIC RIVERA Admission Status: ER Accout number: [id number] Admission Date: 05-14-2018 : 1965 Admission Diagnosis: Attending: DELILAH AGUDELO Current LOS: 4 Anticipated DC Date: Planned Disposition: Home Primary Insurance: [employer] Discharge Planning Comments: CM MET WITH PATIENT ABOUT DC PLANNING/NEEDS. STATES PLANS TO DC TO HOME WITH . DENIES NEEDS AT THIS TIME. CM WILL FOLLOW AND ASSIST NEEDED WITH DC PLANNING/NEEDS. Settlement Clerk: Radha Arias DCPIA - Discharge Planning Initial Assessment Updated by [id number]: Radhamicki Arias on 05/18/18 12:44 pm * Is the patient Alert and Oriented? Yes * PCP HUTCHINS * [facility]acy [facility] * Preadmission Environment Home with Family * ADLs Independent * Equipment None * List name and contact numbers for known caregivers / representatives who currently or will assist patient after discharge: SHINE MARTINEZ, [phone] * Community resources currently utilized None * Additional services required to return to the preadmission environment? No * Can the patient safely return to the preadmission environment? Yes * Has this patient been hospitalized within the prior 30 days at any hospital? Yes Coverage Notice Reviewer: [id number] Stone Notice Issued Date-Time: 05/27/2018 14:05 Notice Type: Patient Choice Letter Notice Delivered To: Patient Relationship to Patient: Self Supervisor Ordnance Truck Installation Name: Delivery Method: HAND - Hand Delivered Katie Days: Prior Verbal Notification: Recipient Understood Notice: Yes Recipient Signature: Yes Med Rec Note Co-signed by Attending: Coverage Notice Comment: [facility] Reviewer: [id number] Stone Notice Issued Date-Time: 05/26/2018 14:22 Notice Type: Patient Choice Letter Notice Delivered To: Patient Relationship to Patient: Self Supervisor [employer] Truck Installation Name: Delivery Method: HAND - Hand Delivered Katie Days: Prior Verbal Notification: Recipient Understood Notice: Yes Recipient Signature: Yes Med Rec Note Co-signed by Attending: Coverage Notice Comment: [facility] Last DP export: 06/01/18 1:51 pm Patient Name: MIC RIVERA Page [id number] at 1122 All edits/amendments must be made on the electronic document DICTATION DATE: 06/02/181120 CUSTOM SHOE DESIGNER AND MAKER: NICHELLE 06/02/18 112 RPT#: [id number] DC DATE:06/01/18 STATUS: DIS IN [facility] [address] [place] [address] END OF REPORT
== END 2018-06-01 20:25 | disposition home health service (06) | DRG 439 ==
LOC: D.ER 17:07 → D.M3 21:25
PROVIDERS: Emergency Medicine; Family Medicine; Internal Medicine Gastroenterology; ADMIT Internal Medicine Nephrology; ATTEND Internal Medicine Nephrology
PROC: 0D9670Z Drainage of Stomach with Drainage Device, Via Natural or Artificial Opening (ICD-10-PCS; 2018-05-20)
PROC: 05HC33Z Insertion of Infusion Device into Left Basilic Vein, Percutaneous Approach (ICD-10-PCS; principal; 2018-05-24)
PROC: B54NZZA Ultrasonography of Left Upper Extremity Veins, Guidance (ICD-10-PCS; 2018-05-24)
PROC: 0DB68ZX Excision of Stomach, Via Natural or Artificial Opening Endoscopic, Diagnostic (ICD-10-PCS; 2018-05-25)
PROC: 05HB33Z Insertion of Infusion Device into Right Basilic Vein, Percutaneous Approach (ICD-10-PCS; 2018-05-27)
PROC: B54MZZA Ultrasonography of Right Upper Extremity Veins, Guidance (ICD-10-PCS; 2018-05-27)
DX: K85.90 Acute pancreatitis without necrosis or infection, unspecified (principal); F17.213 Nicotine dependence, cigarettes, with withdrawal; K31.1 Adult hypertrophic pyloric stenosis; E78.5 Hyperlipidemia, unspecified; E11.43 Type 2 diabetes mellitus with diabetic autonomic (poly)neuropathy; K31.84 Gastroparesis; I25.10 Atherosclerotic heart disease of native coronary artery without angina pectoris; K21.9 Gastro-esophageal reflux disease without esophagitis; G47.33 Obstructive sleep apnea (adult) (pediatric); F32.9 Major depressive disorder, single episode, unspecified; F41.9 Anxiety disorder, unspecified; I11.0 Hypertensive heart disease with heart failure; I50.9 Heart failure, unspecified; R12 Heartburn; K29.80 Duodenitis without bleeding; K29.70 Gastritis, unspecified, without bleeding; N32.89 Other specified disorders of bladder

== ENCOUNTER 2018-06-02 09:46 | Inpatient (IN) | payer MEDICAID ==
[~2018-06-02] VITALS: Ht 157.5 cm; Wt 65.8 kg
--- NOTE | ~2018-06-02 | HEMODYNAMI ---
PATIENT:MIC RIVERA MEDICAL RECORD: [id number] : 65 LOCATION: D.2225 ADMISSION DATE: 06/03/18 Generatedon:06/10/201812:59 Patient name: MIC RIVERA Patient #: [id number] SSN: : 1965 Date of study: 06/10/2018 Page: Of Hemodynamic Procedure Report Patient Data Patient Demographics Procedure consent was obtained First Name: MIC Gender: Female Last Name: MIGUEL : 1965 Patient #: [id number] Age: 52 year(s) Race: Unknown Additional ID: [id number] Contact details [address]: [address] [place] [address] [address]IVE State: [place] City: [place] Zip code: [address] Past Medical History Allergies Allergen Reaction Date Comments Reported Other allergy 06/10/2018 BARIUM SULFATE, METFORMIN, DILAUDID, MUSHROOM Admission Admission Data Admission Date: 06/03/2018 Admission Time: 13:39 Room #: D.2225 Height (in.): 62 BSA: 1.67 (m2) Height (cm.): 157.48 BMI: 26.52 (kg/m2) Weight (lbs.): 145 Weight (kg.): 65.77 Lab Results Lab Result Date: 06/10/2018 Lab Result Time: 0:00 Biochemistry Name Units Result Min Max BUN mg/dl 2 *-(----)-- 7 18 Creatinine mg/dl 0.6 --(*---)-- 0.6 1.3 CBC Name Units Result Min Max Hematocrit % 34.4 *-(----)-- 42 54 Hemoglobin g/dl 11.4 *-(----)-- 13.5 17.5 Procedure Procedure Types Cath Procedure Diagnostic Procedure ELVIA Procedure Description Procedure Date Procedure Date: 06/10/2018 Procedure Start Time: 11:54 Procedure Staff Name Function Andrew Maldonado MD Performing Physician Maria Luisa Anand RT Monitor Joaquin Suit RT Monitor Lucille Draper RN Nurse Elma Rodrigues Lead Ramp Agent Tyler Jenkins CRNA Additional personnel Procedure Data Cath Procedure Fluoroscopy Diagnostic fluoroscopy Total fluoroscopy Time: 0 time: 0 min min Diagnostic fluoroscopy Total fluoroscopy dose: 0 dose: 0 mGy mGy Estimated blood loss: 0 ml Procedure Complications No complications Procedure Medications Medication Administration Route Dosage 0.9% NaCl I.V. 100 ml/hr Oxygen etCO2 Nasal cannula 2 l/min Hurricaine [place] P.O. 2 Sprays Refer to Anesthesia Notes for Sedation Medications Hemodynamics Rest BSA: 1.67 (m2) HGB: 11.4 (g/dl) O2 Consumption: Estimated: 166.29 (ml/min) O2 Consumption indexed: Estimated:99.57 (ml/min/m) Heart Rate: 76 (bpm) Snapshots Pre Cath Intra NCS Post Cath Vital Signs Time Heart Resp SPO2 etCO2 NIBP (mmHg) Rhythm Pain Sedation Rate (ipm) (%) (mmHg) Status Level (bpm) 12:23:54 76 12 98 21.4 134/72(93) NSR 0 (11) 10(A) , No pain 12:28:14 74 13 98 21.4 131/86(117) NSR 0 (11) 10(A) , No pain 12:32:33 75 17 98 22.1 135/88(117) NSR 0 (11) 10(A) , No pain 12:36:49 76 13 97 20.7 134/86(119) NSR 0 (11) 10(A) , No pain 12:41:58 82 11 98 10 145/94(112) NSR 0 (11) 10(A) , No pain 12:46:18 78 12 99 11.8 166/102(127) NSR 0 (11) 5(A) , No pain 12:50:36 73 11 96 11.8 143/88(104) NSR 0 (11) 5(A) , No pain 12:54:54 84 12 95 0 139/89(106) NSR 0 (11) 5(A) , No pain Medications Time Medication Route Dose Verified Delivered Reason Notes Effectiv eness by by 12:21:40 0.9% NaCl I.V. 100 Andrew Santacruzyla used for ml/hr Erica Draper sub assembly team worker 12:22:17 Oxygen etCO2 2 Andrew Santacruzyla used for Nasal l/min Erica Draper procedure cannula RN 12:22:34 Hurricaine P.O. 2 Andrew Adkins used for [place] Sprays Erica Draper sub assembly team worker 12:22:38 Refer to Andrew Adkins Anesthesia Erica Draper Notes for RN Sedation Medications Procedure Log Time Note 11:56:54 Signed procedure consent form obtained from patient. 11:56:55 Diagnostic Cath status Elective 11:56:56 Time tracking: Regular hours (M-F 7:00 - 5:00) 11:57:00 Plan of Care:Hemodynamics will remain stable., Cardiac rhythm will remain stable., Comfort level will be maintained., Respiratory function will remain adequate., Patient/ family verbilizes understanding of procedure., Procedure tolerated without complication., Recovers from procedure without complications.. 12:00:55 Joaqiun Gunderson RT(R) sent for patient. Start room use. 12:02:12 Patient allergic to Other allergyBARIUM SULFATE, METFORMIN, DILAUDID, MUSHROOM 12:03:27 Lab Result : BUN 2 mg/dl 12::27 Lab Result : Creatinine 0.6 mg/dl 12:03:27 Lab Result : Hemoglobin 11.4 g/dl 12:03:27 Lab Result : Hematocrit 34.4 % 12:03:36 Patient Weight : 145 lbs 12:03:41 Patient Height : 62 inches 12:18:09 Patient arrived from Med/Surg to CCL 3. Patient remains on bed/stretcher for procedure. 12:18:11 Warm blankets applied, and demetria hugger turned on for patient comfort. 12:18:11 Correct patient and procedure confirmed by team. 12:18:29 ECG and BP/O2 sat monitors applied to patient. 12:21:40 0.9% NaCl 100 ml/hr I.V. was administered by Lucille Draper RN; used for procedure; 12:21:48 Pre-procedure instructions explained to patient. 12:21:49 Pre-op teaching completed and patient verbalized understanding. 12:21:51 Family in patients room. 12:21:52 Patient NPO since Midnight. 12:21:57 Is the patient allergic to Iodine/contrast media? Yes. 12:22:17 Oxygen 2 l/min etCO2 Nasal cannula was administered by Lucille Draper RN; used for procedure; 12:22:34 Hurricaine [place] 2 Sprays P.O. was administered by Lucille Draper RN; used for procedure; 12::38 Refer to Anesthesia Notes for Sedation Medications was administered by Lucille Draper RN; ; 12::40 PATIENT IS NOT RECEIVING CONTRAST FOR STUDY 12::40 Vital chart was started 12:23:06 Previous problem with sedation/anesthesia? No ? 12:23:31 Snore? Yes 12:23:33 Sleep apnea? Yes 12:23:34 Deviated septum? No 12:23:35 Opens mouth fully? Yes 12:23:36 Sticks out tongue? Yes 12:23:38 Airway obstruction? No ? 12:23:40 Dentures? No ? 12:23:47 Patient diabetic? Yes. 12:23:48 If diabetic: On Metformin? No 12:23:53 Patient pain scale 0/10 ?. 12:23:58 IV patent on arrival in right antecubital with 0.9% NaCl at [facility]. 12:24:00 Lab results completed and on chart. 12:24:08 Alarms reviewed by R. N. 12:24:08 Sharps counted by scrub and verified by R.N. 12:24:16 Baseline sample Acquired. 12:24:20 Rhythm: sinus rhythm 12:24:21 Full Disclosure recording started 12:36:50 Is patient on blood thinner?Yes 12:36:59 PLAVIX TAKEN YESTERDAY 12:38:27 --------ALL STOP TIME OUT------ 12:38:28 Final Timeout: patient, procedure, and site verified with staff and physician. All members of the team are in agreement. 12:38:59 Fire Safety Assessment: B--The operative or invasive procedure is being performed above the xiphoid process or in the oropharynx., C--Open oxygen or nitrous oxide is being used. 12:39:03 Physical assessment completed. ASA score P 3 - A patient with severe systemic disease as per Andrew Maldonado MD. 12:39:06 Sedation plan: TIVA Medication:Propofol 12:39:14 Tyler Jenkins CRNA present and monitoring patient for TIVA. 12:39:25 Elma Maldonadooe Bobbin Winder Tender present for ELVIA. 12:42:42 ELVIA started. 12:49:50 ELVIA completed. 12:50:18 Procedure ended.(Physican Out) 12:50:33 Fluoroscopy time 00.00 minutes. 12:50:33 Fluoroscopy dose: 0 mGy 12:50:33 Flurop Dose total: 0 12:50:38 Sharps counted by scrub and verified by R.N. 12:50:42 Post-procedure physical assessment completed. ASA score P 3 - A patient with severe systemic disease as per Andrew Maldonado MD. 12:51:24 Post procedure rhythm: sinus rhythm 12:51:27 Estimated blood loss: 0 ml 12:51:28 Post procedure instruction explained to patient.Patient verbalizes understanding. 12:51:29 Patient needs reinforcement of post procedure teaching. 12:51:35 Procedure type changed to Cath procedure, Diagnostic procedure, ELVIA 12:52:06 Procedure Complication : No complications 12:58:04 Vital chart was stopped 12:58:04 See physician's report for complete and final results. 12:58:07 Report given to Med/Surg. 12:58:21 Patient transfered to Med/Surg with Bed. 12:58:24 End room use (Document Last) Signature Audit [place] Stage Time Signature Unsigned Intra-Procedure 06/10/2018 Maria Luisa Anand 12:58:50 PM RT(R) Signatures Monitor : Maria Luisa Anand Signature : RT Date : Time : Monitor : Joaquin Gunderson RT Signature : Date : Time : [facility] [address] [place] [address]
[~2018-06-02 09:46] MED LIST changes: +ATIVAN0.5 MG PO; +CATAPRES0.1 MG PO; +CREON (PANCRELI1 CAP PO; +CRESTOR5 MG PO; +EFFEXOR XR150 MG PO; +MACROBID100 MG PO; +Nicoderm [PBKC] TRANSDERM; +OXYBUTYNIN CHLOR5 MG PO; +PROTONIX20 MG PO; +PROTONIX40 MG PO; +TRAZODONE HCL150 MG PO; +VALIUM5 MG PO
[2018-06-02 10:37] LABS: BASOPHILS 0.2 % (0-2); EOSINOPHILS 0 % (0-7); HEMATOCRIT 30.6 % (36.0-48.0); HEMOGLOBIN 10.1 g/dL (12-16); IMMATURE GRANULOCYTES 0.5 % (0-5); LYMPHOCYTES 11.1 % (15-50); MCH 28.5 pg (26.0-34.0); MCV 86.2 fL (80.0-100.0); MONOCYTES 8.2 % (2-11); RBC 3.55 10x6/uL (4.00-5.40)
[2018-06-02 10:46] LABS: PLATELET COUNT 262 10x3/uL (130-400); WBC 10.7 10x3/uL (4.8-10.8)
[2018-06-02 10:48] LABS: ALBUMIN 2.4 g/dL (3.4-5.0); ALKALINE PHOSPHATASE 148 U/L (46-116); ALT (SGPT) 20 U/L (10-68); BILIRUBIN - TOTAL 0.36 mg/dL (0.2-1.3); CALCIUM 8.3 mg/dL (8.5-10.1); CARBON DIOXIDE 20.8 mmol/L (21.0-32.0); CHLORIDE - SERUM 98 mmol/L (98-107); PROTEIN - SERUM 7.1 g/dL (6.4-8.2); SODIUM 131 mmol/L (136-145)
[2018-06-02 10:50] LABS: CALC OSMOLALITY 273 mosm/kg (275-300); CREATININE - SERUM 0.7 mg/dL (0.6-1.3); GLUCOSE 308 mg/dL (74-106); UREA NITROGEN 10 mg/dL (7-18); eGFR NON AFRICAN AMERICAN > 90 mL/min (90-120)
[2018-06-02 10:51] LABS: AMYLASE - SERUM 48 U/L (25-115); LIPASE 279 U/L (73-393)
[2018-06-02 10:52] LABS: TROPONIN-I < 0.017 ng/mL (0.000-0.060)
[2018-06-02 11:26] LABS: CKMB 0.2 U/L (0.0-3.6); CREATINE KINASE 25 UL (21-215)
[2018-06-02 13:00] VITALS: BP 95/53
--- NOTE | 2018-06-02 13:00 | MORECARE ---
CASE MANAGEMENT DISCHARGE SUMMARY PATIENT: MIC RIVERA UNIT: [id number] ADM DATE: 06/02/18 AGE: 52 : 65 SEX: F ROOM/BED: D.E10 AUTHOR: DRISS WHITTEN PHYSICIAN: REFERRING PHYSICIAN: GIOVANNY HOLDEN DO DATE OF SERVICE: 06/02/18 Discharge Plan Patient Name: MIC RIVERA [facility] : 1965 Planned Disposition: Anticipated Discharge Date: Discharge Date: Expected LOS: Initial Reviewer: [email or web address] Initial Review Date: 06/02/2018 Generated: 06/02/18 1:59 pm Patient Name: MIC RIVERA Page [id number] at 1300 All edits/amendments must be made on the electronic document DICTATION DATE: 06/02/18 1259 DIGITAL COMMUNITY MANAGER: NICHELLE 06/02/18 1259 RPT#: [id number] DC DATE: STATUS: ADM IN [facility] [address] [place] [address] END OF REPORT
--- NOTE | 2018-06-02 13:45 | NUR ---
LEVAQUIN INFUSION COMPLETE AT THIS TIME.
[2018-06-02 14:01] VITALS: BP 96/57
[2018-06-02 14:15] VITALS: BP 118/53
--- NOTE | 2018-06-02 14:15 | NUR ---
REPORT CALLED TO MAIRA NURSE AT THIS TIME.
--- NOTE | 2018-06-02 14:20 | NUR ---
PT REFUSED ATIVA AT THIS TIME.
[2018-06-02 14:30] VITALS: BP 103/57
--- NOTE | 2018-06-02 14:52 | NUR ---
ROCEPHIN INFUSION COMPLETE AT THIS TIME.
--- NOTE | 2018-06-02 14:53 | NUR ---
PT TO FLOOR AT THIS TIME.
[2018-06-02 15:20] VITALS: BMI 26.6
--- NOTE | 2018-06-02 15:31 | MORECARE ---
CASE MANAGEMENT DISCHARGE SUMMARY PATIENT: MIC RIVERA UNIT: [id number] ADM DATE: 06/02/18 AGE: 52 : 65 SEX: F ROOM/BED: D.2225 AUTHOR: DRISS WHITTEN PHYSICIAN: REFERRING PHYSICIAN: GIOVANNY HOLDEN DO DATE OF SERVICE: 06/02/18 Discharge Plan Patient Name: MIC [facility]IVERA [facility] : 1965 Planned Disposition: Anticipated Discharge Date: Discharge Date: Expected LOS: Initial Reviewer: [email or web address] Initial Review Date: 06/02/2018 Generated: 06/02/18 4:31 pm DCP- Discharge Planning Updated by [email or web address]: Merly Prasad on 06/02/18 2:[address] CM spoke with patient regarding LTAC transfer to [facility] (patient choice). Patient Consent signed for same and placed on chart. CM spoke with Melania Schulte Intake with [facility] regarding insurance determination for patient. Melania states that the patient's insurance carrier denied admission to [facility]. This was relayed to the patient, daughter at bedside, patient's nurse and ER MD. Patient questions "now what will do?" Tearful and shaking. Assurance given that we are in contact with Dr. Holden. Patient requests an appointment with Dr. Wolff, [facility]. CM faxed related information to Fax #[phone]. Faxed referral intake form was placed on chart. Also called the office, left a message for same and provided patient contact information. Prior to this admission, HHS was arranged with Kelli COREA, TPN Infusion with [facility], [facility], [facility]. CM will follow and assist with dc plans. Last DP export: 06/02/18 11:59 am Patient Name: MIC RIVERA Page [phone] at 1531 All edits/amendments must be made on the electronic document DICTATION DATE: 06/02/18 1531 PIT SHOVELER: NICHELLE 06/02/18 1531 RPT#: [id number] DC DATE: STATUS: ADM IN [facility] [address] [place] [address] END OF REPORT
[2018-06-02 18:07] VITALS: BP 94/48
--- NOTE | 2018-06-02 18:12 | NUR ---
PT RESTING IN BED WITH EYES CLOSED. AROUSED BY VERBAL STIMULI. " MY PAIN IS A LOT BETTER." NO S/S OF ACUTE DISTRESS. CL IN PLACE.
[2018-06-02 20:00] VITALS: BP 92/46
--- NOTE | 2018-06-02 20:14 | NUR ---
AWAKE,ALERT.TEMP 101.1 CALL PLACED TO SEC ACCOUNTANT WITH ORDERS RECIEVED. PATIENT REFUSES TYLENOL SUPPISITORY. DR TEMPLE HERE. ORDERS RECEIVED FOR PO TYLENOL AND GIVEN PER ORDER. RIGHT PICC INTACT WITH TPN INFUSING. NO REDNESS OR EDEMA NOTED. BLD CULTURES OBTAINED PER ORDERS. CL IN REACH
[2018-06-03 00:30] VITALS: BP 93/40
--- NOTE | 2018-06-03 03:24 | NUR ---
I have reviewed this patient and I concur with the Shift Assessment completed by the Licensed Practical Nurse today this shift.
[2018-06-03 05:00] VITALS: BP 91/47
[2018-06-03 06:51] LABS: BASOPHILS 0.3 % (0-2); EOSINOPHILS 0.4 % (0-7); HEMATOCRIT 26.9 % (36.0-48.0); HEMOGLOBIN 8.8 g/dL (12-16); IMMATURE GRANULOCYTES 0.3 % (0-5); MCH 28.2 pg (26.0-34.0); MCHC 32.7 g/dL (31.0-37.0); MCV 86.2 fL (80.0-100.0); MEAN PLATELET VOLUME 10.8 fL (7.4-10.4); MONOCYTES 14.2 % (2-11); NEUTROPHILS 66.8 % (40-80); PLATELET COUNT 243 10x3/uL (130-400); RBC 3.12 10x6/uL (4.00-5.40); RDW 15.5 % (11.5-14.5)
[2018-06-03 07:05] LABS: WBC 7.5 10x3/uL (4.8-10.8)
[2018-06-03 07:09] LABS: ALBUMIN 2.1 g/dL (3.4-5.0); ANION GAP 16.6 mmol/L (8-16); BILIRUBIN - TOTAL 0.34 mg/dL (0.2-1.3); CALCIUM 8.5 mg/dL (8.5-10.1); CARBON DIOXIDE 19.5 mmol/L (21.0-32.0); POTASSIUM - SERUM 4.1 mmol/L (3.5-5.1); PROTEIN - SERUM 6.5 g/dL (6.4-8.2)
--- NOTE | 2018-06-03 08:13 | NUR ---
PT IS RESTING IN BED WITH EYES OPEN. RESPIRATIONS ARE SHALLOW AND LABORED. PT REPORTS PAIN 10/10 IN ABDOMINAL AREA. PT WITH MORPHINE SURFACE LOGGING SYSTEMS LOGGER. PT EDUCATED ON CALMING BREATHING TECHNIQUES. PT VERBALIZES UNDERSTANDING AND STATES "I BREATHE LIKE THIS ALL OF THE TIME". BED IS IN THE LOWEST POSITION. CALL LIGHT AND BEDSIDE TABLE ARE WITHIN REACH. WILL CONT TO CLOSELY MONITOR.
--- NOTE | 2018-06-03 09:10 | HP ---
PATIENT: MIC RIVERA MEDICAL RECORD: [id number] ACCOUNT: [id number] LOCATION:D.MS [place]2225 : 65 ADMISSION DATE: 06/02/18 PCP: BLANCA HUTCHINS MD HISTORY AND PHYSICAL EXAMINATION HISTORY: Ms. Rivera is a 52-year-old white female with acute pancreatitis. She was just discharged from the hospital yesterday with IV TPN. She was initially hospitalized on May 14 and found to have acute pancreatitis. Her pain had been better controlled. She was actually supposed to go to LTAC for long-term TPN, but she wanted to try to go home. TPN was set up through home health. She got home and then started having severe pain again and nausea and vomiting. She returns to the Emergency Room today, where repeat lab shows white count of 10.7, H&H is 10.1 and 30.6, and platelets 262. Her glucose was 308, alk phos 148. ALT and AST are normal. Total bili is normal. Amylase and lipase are both normal. She is afebrile. She has had to be started back on IV pain medication. She is going to be readmitted for pain control and we will do CT of her abdomen to rule out pseudocyst. PAST MEDICAL HISTORY: Unchanged. PAST SURGICAL HISTORY: Unchanged. ALLERGIES: See APR. MEDICATIONS: See APR. FAMILY HISTORY: Unchanged. SOCIAL HISTORY: Unchanged. REVIEW OF SYSTEMS: No fever. No chest pain. No shortness of breath. She is complaining of diffuse abdominal pain with nausea and vomiting. No dysuria. IMPRESSION: Pancreatitis. PLAN: She is placed back in observation. We will do CT of abdomen and pelvis to rule out pseudocyst. Back on IV analgesics and fluids. Continue TPN. See orders for rest of plan. TRANSINT:[id number] Voice Confirmation ID: [id number] DOCUMENT ID: [id number] GIOVANNY HOLDEN DO at 0910 CC: [id number] DICTATION DATE: 06/02/18 165 CLAMMER: 06/02/18 1839 ADM IN [place] [id number] [place] [address]
[2018-06-03 09:19] VITALS: BP 89/47
--- NOTE | 2018-06-03 10:56 | NUR ---
SPOKE WITH DR HOLDEN PERTAINING TO PT BLOOD PRESSURE AND HYPOTENSIVE STATE. VERBAL ORDERS RECD ARE 250ML FLUID BOLUS. HOLD COREG AND LISINOPRIL. GIVE EFFEXOR MEDICATION. ORDERS PLACED.
[2018-06-03 12:27] VITALS: BP 90/53
--- NOTE | 2018-06-03 12:58 | NUR ---
TELEMETRY PLACED ON PT. PER WELDING LEAD BURNER TECH PT IS RUNNING 86 NORMAL SINUS RHYTHM.
[2018-06-03 13:38] VITALS: BMI 26.5
[2018-06-03 14:31] LABS: CKMB 0.3 U/L (0.0-3.6); CREATINE KINASE 21 UL (21-215); TROPONIN-I < 0.017 ng/mL (0.000-0.060)
[2018-06-03 14:54] LABS: APPEARANCE CLEAR (CLEAR); COLOR YELLOW (YELLOW); GLUCOSE NEGATIVE (NEGATIVE); NITRITE NEGATIVE (NEGATIVE); PROTEIN TRACE mg/dL (NEGATIVE); SPECIFIC GRAVITY 1.005 (1.005-1.020)
[2018-06-03 14:55] LABS: BILIRUBIN NEGATIVE (NEGATIVE); KETONE NEGATIVE (NEGATIVE); UROBILINOGEN NORMAL (NORMAL)
[2018-06-03 14:57] LABS: BACTERIA FEW /hpf (NONE SEEN); EPITHELIAL CELLS 0-5 /hpf (0-5); RED CELLS - URINE 0-5 /hpf (0-5)
[2018-06-03 18:11] VITALS: BP 88/54
[2018-06-03 18:48] VITALS: Ht 157.5 cm; Wt 65.8 kg
[2018-06-03 19:45] LABS: CKMB 0.4 U/L (0.0-3.6); CREATINE KINASE 23 UL (21-215)
[2018-06-03 19:46] LABS: TROPONIN-I < 0.017 ng/mL (0.000-0.060)
[2018-06-03 20:23] VITALS: BP 82/51
[2018-06-04 01:13] LABS: CKMB 0.3 U/L (0.0-3.6); CREATINE KINASE 23 UL (21-215)
[2018-06-04 01:14] LABS: TROPONIN-I < 0.017 ng/mL (0.000-0.060)
[2018-06-04 01:34] VITALS: BP 85/53
[2018-06-04 04:58] VITALS: BP 93/54
[2018-06-04 06:07] LABS: BASOPHILS 0.4 % (0-2); EOSINOPHILS 1.7 % (0-7); HEMATOCRIT 23.7 % (36.0-48.0); HEMOGLOBIN 7.7 g/dL (12-16); IMMATURE GRANULOCYTES 0.2 % (0-5); LYMPHOCYTES 24.2 % (15-50); MCH 27.9 pg (26.0-34.0); MCHC 32.5 g/dL (31.0-37.0); MCV 85.9 fL (80.0-100.0); MEAN PLATELET VOLUME 10.4 fL (7.4-10.4); MONOCYTES 12.4 % (2-11); NEUTROPHILS 61.1 % (40-80); PLATELET COUNT 221 10x3/uL (130-400); RBC 2.76 10x6/uL (4.00-5.40); RDW 15.7 % (11.5-14.5)
[2018-06-04 06:28] LABS: ALBUMIN 1.8 g/dL (3.4-5.0); ALKALINE PHOSPHATASE 126 U/L (46-116); BILIRUBIN - TOTAL 0.28 mg/dL (0.2-1.3); CALCIUM 7.9 mg/dL (8.5-10.1); CARBON DIOXIDE 20.2 mmol/L (21.0-32.0); CHLORIDE - SERUM 105 mmol/L (98-107); GLUCOSE 156 mg/dL (74-106); MAGNESIUM - SERUM 1.6 mg/dL (1.8-2.4); PHOSPHOROUS 4.7 mg/dL (2.5-4.9); POTASSIUM - SERUM 3.9 mmol/L (3.5-5.1); SODIUM 135 mmol/L (136-145); eGFR NON AFRICAN AMERICAN > 90 mL/min (90-120)
[2018-06-04 06:29] LABS: ALT (SGPT) 44 U/L (10-68); CALC OSMOLALITY 271 mosm/kg (275-300); CREATININE - SERUM 0.5 mg/dL (0.6-1.3); UREA NITROGEN 11 mg/dL (7-18)
[2018-06-04 06:30] LABS: WBC 5.3 10x3/uL (4.8-10.8)
--- NOTE | 2018-06-04 07:50 | NUR ---
PT IS WITHOUT DISTRESS. SHE STATES THAT DURING NIGHT"SOMETHING POPPED IN HER LEFT SIDE AND IS CAUSING HEADACHE.CALL LIGHT IN REACH
--- NOTE | 2018-06-04 08:00 | NUR ---
ASSESSMENT PER FLOW SHEET. PT IS WITHOUT DISTRESS.CALL LIGHT IN REACH
[2018-06-04 08:52] VITALS: BP 104/47
--- NOTE | 2018-06-04 10:03 | NUR ---
Rehab Prescreening Consult recieved and the chart has been reviewed. She is QCA private options which will require a preauth for ARU. She is scheduled for an EGD today. She has had an OT eval but they signed off stating no OT needs at this time. To qualify for the ARU a patient must have the need for at least 2 therapies out of 3. She has a PT eval pending. Rehab will follow her for any changes in her functional needs. Lizabeth Briceno RN Clinical Liaison, Rehab
[2018-06-04 13:21] VITALS: BP 106/57
--- NOTE | 2018-06-04 14:48 | NUR ---
TO GI LAB VIA BED
--- NOTE | 2018-06-04 15:45 | NUR ---
BACK FROM GI LAB. PT IS WITHOUT DISTRESS.CALL LIGHT IN REACH
[2018-06-04 20:00] VITALS: BP 126/67
[2018-06-05 00:54] VITALS: BP 106/67
[2018-06-05 05:26] VITALS: BP 127/63
[2018-06-05 07:45] LABS: BASOPHILS 0.5 % (0-2); EOSINOPHILS 2.1 % (0-7); IMMATURE GRANULOCYTES 0.2 % (0-5); LYMPHOCYTES 28.2 % (15-50); MCH 28.8 pg (26.0-34.0); MCHC 34.1 g/dL (31.0-37.0); MCV 84.5 fL (80.0-100.0); MEAN PLATELET VOLUME 11.2 fL (7.4-10.4); MONOCYTES 9.7 % (2-11); NEUTROPHILS 59.3 % (40-80); PLATELET COUNT 248 10x3/uL (130-400); RDW 15.1 % (11.5-14.5); WBC 6.1 10x3/uL (4.8-10.8)
[2018-06-05 07:50] LABS: HEMATOCRIT 31.1 % (36.0-48.0); HEMOGLOBIN 10.6 g/dL (12-16); RBC 3.68 10x6/uL (4.00-5.40)
[2018-06-05 08:08] LABS: ALBUMIN 1.9 g/dL (3.4-5.0); ALKALINE PHOSPHATASE 149 U/L (46-116); CARBON DIOXIDE 22.6 mmol/L (21.0-32.0); CHLORIDE - SERUM 107 mmol/L (98-107); CREATININE - SERUM 0.4 mg/dL (0.6-1.3); GLUCOSE 140 mg/dL (74-106); POTASSIUM - SERUM 3.4 mmol/L (3.5-5.1); PROTEIN - SERUM 6.2 g/dL (6.4-8.2); SODIUM 139 mmol/L (136-145); eGFR NON AFRICAN AMERICAN > 90 mL/min (90-120)
[2018-06-05 08:22] LABS: ALT (SGPT) 69 U/L (10-68); CALC OSMOLALITY 276 mosm/kg (275-300); UREA NITROGEN 5 mg/dL (7-18)
[2018-06-05 09:04] VITALS: BP 132/74
[2018-06-05 12:15] VITALS: BP 109/62
[2018-06-05 14:55] LABS: AMYLASE - SERUM 24 U/L (25-115); LIPASE 130 U/L (73-393)
--- NOTE | 2018-06-05 16:04 | NUR ---
I have reviewed this patient and I concur with the Shift Assessment completed by the Licensed Practical Nurse today this shift.
--- NOTE | 2018-06-05 16:08 | NUR ---
IV 22G TO THE R FOREARM 1 ATTEMPT
[2018-06-05 17:51] VITALS: BP 118/66
[2018-06-05 20:00] VITALS: BP 164/80
--- NOTE | 2018-06-05 21:30 | NUR ---
PT C/O GAS PAIN. CALLED PHYSICIAN INSULATION ENGINEMAN. GAVE SIMETHICONE CHEW PER DR TREJO TELEPHONE ORDER. GAVE SCHEDULED MEDS. ASSESSMENT COMPLETE PER FLOW-SHEET. NO OTHER NEEDS. WILL CONTINUE TO MONITOR.
[2018-06-06] VITALS: BP 100/71
[2018-06-06 03:00] VITALS: BP 110/60
[2018-06-06 07:19] LABS: BASOPHILS 0.3 % (0-2); EOSINOPHILS 2.4 % (0-7); HEMATOCRIT 31.3 % (36.0-48.0); HEMOGLOBIN 10.5 g/dL (12-16); IMMATURE GRANULOCYTES 0.2 % (0-5); LYMPHOCYTES 30.1 % (15-50); MCH 28.5 pg (26.0-34.0); MCHC 33.5 g/dL (31.0-37.0); MCV 84.8 fL (80.0-100.0); MEAN PLATELET VOLUME 10.9 fL (7.4-10.4); MONOCYTES 8.3 % (2-11); NEUTROPHILS 58.7 % (40-80); PLATELET COUNT 281 10x3/uL (130-400); RBC 3.69 10x6/uL (4.00-5.40); RDW 15.2 % (11.5-14.5); WBC 6.5 10x3/uL (4.8-10.8)
--- NOTE | 2018-06-06 07:57 | NUR ---
PT AAOX4 RESP EVEN AND NONLABORED, NO SIGNS OF DISTRESS NOTED, NO NEEDS EXPRESSED AT THIS TIME, CL IN REACH WILL CONTINUE TO MONITOR
[2018-06-06 08:06] LABS: ALBUMIN 1.8 g/dL (3.4-5.0); ALKALINE PHOSPHATASE 145 U/L (46-116); ALT (SGPT) 58 U/L (10-68); CALCIUM 7.9 mg/dL (8.5-10.1); CHLORIDE - SERUM 108 mmol/L (98-107); CREATININE - SERUM 0.4 mg/dL (0.6-1.3); GLUCOSE 112 mg/dL (74-106); POTASSIUM - SERUM 3.1 mmol/L (3.5-5.1); PROTEIN - SERUM 6.2 g/dL (6.4-8.2); SODIUM 141 mmol/L (136-145); eGFR NON AFRICAN AMERICAN > 90 mL/min (90-120)
[2018-06-06 08:12] LABS: CALC OSMOLALITY 278 mosm/kg (275-300); UREA NITROGEN 3 mg/dL (7-18)
[2018-06-06 08:44] LABS: CARBON DIOXIDE 23.2 mmol/L (21.0-32.0)
[2018-06-06 09:54] VITALS: BP 176/77
--- NOTE | 2018-06-06 10:00 | NUR ---
PICC LINE REMOVED VIA LEAD SUSTAINABILITY SPECIALIST TATIANA JACOB TOLERATED W/O COMPLAINT
[2018-06-06 13:43] VITALS: BP 131/81
[2018-06-06 17:49] VITALS: BP 158/80
--- NOTE | 2018-06-06 18:45 | NUR ---
I have reviewed this patient and I concur with the Shift Assessment completed by the Licensed Practical Nurse today this shift.
[2018-06-06 20:23] VITALS: BP 146/87
[2018-06-06] MEDS ORDERED: SEROQUEL100 MG PO (21:20)
--- NOTE | 2018-06-06 21:25 | NUR ---
PT ALERT & ORIENTED. CONTACT ISOLATION PRECAUTIONS. ASSESSMENT PER FLOW-SHEET. GAVE SCHEDULED MEDS. FSBS 95 - NO INSULIN PER SS. PAIN CONTROLLED WITH ENDS BREAKAGE CLERK. NO NEEDS. WILL CONTINUE TO MONITOR.
[2018-06-07 00:47] VITALS: BP 149/90
[2018-06-07 05:27] VITALS: BP 110/80
[2018-06-07 07:50] LABS: BASOPHILS 0.5 % (0-2); EOSINOPHILS 2.3 % (0-7); HEMATOCRIT 33.2 % (36.0-48.0); HEMOGLOBIN 11.2 g/dL (12-16); IMMATURE GRANULOCYTES 0.3 % (0-5); LYMPHOCYTES 22.9 % (15-50); MCH 28.5 pg (26.0-34.0); MCHC 33.7 g/dL (31.0-37.0); MCV 84.5 fL (80.0-100.0); MEAN PLATELET VOLUME 10.6 fL (7.4-10.4); PLATELET COUNT 336 10x3/uL (130-400); RBC 3.93 10x6/uL (4.00-5.40); RDW 15.1 % (11.5-14.5); WBC 6.5 10x3/uL (4.8-10.8)
--- NOTE | 2018-06-07 08:00 | NUR ---
MORNING ASSESSMENT COMPLETE. SEE ASSESSMENT FLOWSHEET FOR FURTHER DETAILS. PT LYING IN BED AAO X4 TO PERSON, PLACE, TIME, AND SITUATION. DENIES NEEDS AT THIS TIME. CL IN REACH. SIDE RAILS UP X3 FOR PT SAEFTY. BED IN LOWEST POSITION.
[2018-06-07 08:24] LABS: ALBUMIN 1.9 g/dL (3.4-5.0); ALKALINE PHOSPHATASE 147 U/L (46-116); ALT (SGPT) 55 U/L (10-68); BILIRUBIN - TOTAL 0.41 mg/dL (0.2-1.3); CALCIUM 8.1 mg/dL (8.5-10.1); CARBON DIOXIDE 23.3 mmol/L (21.0-32.0); CHLORIDE - SERUM 108 mmol/L (98-107); CREATININE - SERUM 0.4 mg/dL (0.6-1.3); GLUCOSE 131 mg/dL (74-106); POTASSIUM - SERUM 3.3 mmol/L (3.5-5.1); PROTEIN - SERUM 6.5 g/dL (6.4-8.2); SODIUM 144 mmol/L (136-145); eGFR NON AFRICAN AMERICAN > 90 mL/min (90-120)
[2018-06-07 08:25] LABS: CALC OSMOLALITY 284 mosm/kg (275-300); UREA NITROGEN 2 mg/dL (7-18)
[2018-06-07 10:07] VITALS: BP 163/81
[2018-06-07 14:37] VITALS: BP 158/72
--- NOTE | 2018-06-07 14:42 | NUR ---
NUTRITION F/U CHART REVIEWED, PT REMAINS IN ISOLATION. ENVIRONMENTAL ADVISOR REPORTS PT TOLERATING FULL LIQUID DIET WITH GOOD INTAKE. WILL CONTINUE TO MONITOR DIET ADVANCEMENT, PT PROGRESS. RD FOLLOWING
--- NOTE | 2018-06-07 14:52 | NUR ---
According to the PT and OT notes this patient is independent in the room and has no need for any therapies. Rehab will no longer follow. Lizabeth Briceno RN Clinical Liaison, Rehab
[2018-06-07 18:12] VITALS: BP 87/28
[2018-06-07 21:57] VITALS: BP 114/73
[2018-06-08 01:45] VITALS: BP 144/79
--- NOTE | 2018-06-08 05:01 | NUR ---
HAS RESTED THIS SHIFT WITH NO COMPLAINTS OF PAIN SINCE EARILER DOSE OF ULTRAM. CALL LIGHT REMAINS IN PLACE.
[2018-06-08 05:19] VITALS: BP 158/86
[2018-06-08 06:33] LABS: BASOPHILS 0.6 % (0-2); EOSINOPHILS 2.8 % (0-7); HEMATOCRIT 33.3 % (36.0-48.0); IMMATURE GRANULOCYTES 0.4 % (0-5); LYMPHOCYTES 31.3 % (15-50); MCH 28.5 pg (26.0-34.0); MCV 86.3 fL (80.0-100.0); MEAN PLATELET VOLUME 10.4 fL (7.4-10.4); MONOCYTES 9.6 % (2-11); NEUTROPHILS 55.3 % (40-80); PLATELET COUNT 394 10x3/uL (130-400); RBC 3.86 10x6/uL (4.00-5.40); RDW 15.3 % (11.5-14.5); WBC 5.3 10x3/uL (4.8-10.8)
[2018-06-08 07:44] LABS: ALBUMIN 1.8 g/dL (3.4-5.0); ALKALINE PHOSPHATASE 128 U/L (46-116); ALT (SGPT) 47 U/L (10-68); CALC OSMOLALITY 277 mosm/kg (275-300); CALCIUM 8.1 mg/dL (8.5-10.1); CARBON DIOXIDE 24.2 mmol/L (21.0-32.0); CHLORIDE - SERUM 107 mmol/L (98-107); CREATININE - SERUM 0.4 mg/dL (0.6-1.3); GLUCOSE 112 mg/dL (74-106); POTASSIUM - SERUM 3.2 mmol/L (3.5-5.1); PROTEIN - SERUM 6.4 g/dL (6.4-8.2); SODIUM 141 mmol/L (136-145); UREA NITROGEN 2 mg/dL (7-18); eGFR NON AFRICAN AMERICAN > 90 mL/min (90-120)
--- NOTE | 2018-06-08 08:00 | NUR ---
ASSESSMENT PER FLOW SHEET. PT IS WITHOUT DISTRESS. ISOLATION MAINTAINED
[2018-06-08 08:17] VITALS: BP 128/84
--- NOTE | 2018-06-08 11:10 | NUR ---
IV TENDER. SOME SWELLING NOTED. IV DCD WITH CATH TIP INTACT
--- NOTE | 2018-06-08 11:12 | NUR ---
SPOKE WITH MEETA BRITO. JUSTICE MANUEL.
[2018-06-08 13:27] VITALS: BP 167/86
--- NOTE | 2018-06-08 16:15 | NUR ---
REFUSES MAG CITRATE ORDERED. PT STATES ARIAS HER MOUTH
[2018-06-08 17:49] VITALS: BP 148/94
--- NOTE | 2018-06-08 18:22 | NUR ---
UP IN HALLS AMBULATING WITH FAMILY.REMAINS WITHOUT CHANGE.CONT PLAN OF CARE
[2018-06-08 21:18] VITALS: BP 142/92
[2018-06-09 05:39] LABS: BASOPHILS 0.6 % (0-2); EOSINOPHILS 3.2 % (0-7); HEMATOCRIT 33.8 % (36.0-48.0); IMMATURE GRANULOCYTES 0.2 % (0-5); LYMPHOCYTES 40.5 % (15-50); MCH 28.1 pg (26.0-34.0); MCHC 32.5 g/dL (31.0-37.0); MCV 86.4 fL (80.0-100.0); MEAN PLATELET VOLUME 10.4 fL (7.4-10.4); MONOCYTES 8.2 % (2-11); NEUTROPHILS 47.3 % (40-80); PLATELET COUNT 424 10x3/uL (130-400); RBC 3.91 10x6/uL (4.00-5.40); RDW 15.4 % (11.5-14.5); WBC 5.3 10x3/uL (4.8-10.8)
[2018-06-09 05:59] VITALS: BP 134/80
[2018-06-09 06:09] LABS: ALKALINE PHOSPHATASE 125 U/L (46-116); ALT (SGPT) 40 U/L (10-68); BILIRUBIN - TOTAL 0.36 mg/dL (0.2-1.3); CALC OSMOLALITY 284 mosm/kg (275-300); CALCIUM 7.9 mg/dL (8.5-10.1); CARBON DIOXIDE 23.7 mmol/L (21.0-32.0); CHLORIDE - SERUM 110 mmol/L (98-107); CREATININE - SERUM 0.5 mg/dL (0.6-1.3); GLUCOSE 101 mg/dL (74-106); PROTEIN - SERUM 6.6 g/dL (6.4-8.2); SODIUM 145 mmol/L (136-145); UREA NITROGEN 2 mg/dL (7-18); eGFR NON AFRICAN AMERICAN > 90 mL/min (90-120)
[2018-06-09 06:40] LABS: POTASSIUM - SERUM 3.1 mmol/L (3.5-5.1)
--- NOTE | 2018-06-09 07:45 | NUR ---
ASSESSMENT PER FLOW SHEET. PT IS WITHOUT DISTRESS.MONITOR FOR NEEDS.
[2018-06-09 09:41] VITALS: BP 143/83
--- NOTE | 2018-06-09 13:00 | NUR ---
DECLINES MAG CITRATE
--- NOTE | 2018-06-09 13:01 | MORECARE ---
CASE MANAGEMENT DISCHARGE SUMMARY PATIENT: MIC RIVERA UNIT: [id number] ADM DATE: 06/03/18 AGE: 52 : 65 SEX: F ROOM/BED: D.2225 AUTHOR: FISH,DOC PHYSICIAN: REFERRING PHYSICIAN: GIOVANNY HOLDEN DO DATE OF SERVICE: 06/09/18 Discharge Plan Patient Name: MIC RIVERA Facility: [facility]:[place] : 1965 Planned Disposition: Home with Home Health Anticipated Discharge Date: Discharge Date: Expected LOS: Initial Reviewer: [email or web address] Initial Review Date: 06/02/2018 Generated: 06/09/18 2:00 pm Comments DCP- Discharge Planning Updated by [email or web address]: Radha Merrillcindy on 06/09/18 11:[address] Met with patient concerning discharge planning, she is alone in the room. She states she would like to go home with [facility] if able. She has been ambulating with the in the halls. CM will continue to follow and assist with discharge planning/needs. DCP- Discharge Planning Updated by [id number]: Merly Prasad on 06/02/18 2:[address] CM spoke with patient regarding LTAC transfer to [facility] (patient choice). Patient Consent signed for same and placed on chart. CM spoke with Melania Schulte Intake with [facility] regarding insurance determination for patient. Melania states that the patient's insurance carrier denied admission to [facility]. This was relayed to the patient, daughter at bedside, patient's nurse and ER MD. Patient questions "now what will do?" Tearful and shaking. Assurance given that we are in contact with Dr. Holden. Patient requests an appointment with Dr. Wolff, [facility]. CM faxed related information to Fax #[phone]. Faxed referral intake form was placed on chart. Also called the office, left a message for same and provided patient contact information. Prior to this admission, HHS was arranged with [facility], TPN Infusion with [facility], Pharmacy [facility], [facility]. CM will follow and assist with dc plans. Coverage Notice Reviewer: [id number] - Merly Prasad Notice Issued Date-Time: 06/02/2018 13:00 Notice Type: Patient Choice Letter Notice Delivered To: Family Member Relationship to Patient: Daughter Grade Teacher Name: Delivery Method: HAND - Hand Delivered Katie Days: Prior Verbal Notification: Recipient Understood Notice: Recipient Signature: Med Rec Note Co-signed by Attending: Coverage Notice Comment: Contact with LT[facility] Elizabeth Reviewer: [email or web address] Teo Joshi Notice Issued Date-Time: 06/09/2018 12:54 Notice Type: Patient Choice Letter Notice Delivered To: Patient Relationship to Patient: Grade Teacher Name: Delivery Method: HAND - Hand Delivered Katie Days: Prior Verbal Notification: Recipient Understood Notice: Yes Recipient Signature: Yes Med Rec Note Co-signed by Attending: Coverage Notice Comment: [facility] for [facility] and [facility] if needed Last DP export: 06/02/18 2:31 pm Patient Name: MIC RIVERA Page [id number] at 1301 All edits/amendments must be made on the electronic document DICTATION DATE: 06/09/18 1300 YOUTH PROGRAM DIRECTOR: NICHELLE 06/09/18 1300 RPT#: [id number] DC DATE: STATUS: ADM IN [facility] [address] [place] [address] END OF REPORT
[2018-06-09 15:09] VITALS: BP 148/93
[2018-06-09 17:54] VITALS: BP 147/91
--- NOTE | 2018-06-09 19:55 | NUR ---
REMAINS WITHOUT NEEDS.WITHOUT CHANGE. CONT PLAN OF CARE
[2018-06-09 22:22] VITALS: BP 154/80
[2018-06-09 22:30] VITALS: BP 150/90
[2018-06-10 05:16] VITALS: BP 138/42
[2018-06-10 05:51] LABS: BASOPHILS 0.7 % (0-2); EOSINOPHILS 2.7 % (0-7); HEMATOCRIT 34.4 % (36.0-48.0); HEMOGLOBIN 11.4 g/dL (12-16); IMMATURE GRANULOCYTES 0.2 % (0-5); LYMPHOCYTES 36.1 % (15-50); MCH 28.6 pg (26.0-34.0); MCHC 33.1 g/dL (31.0-37.0); MCV 86.2 fL (80.0-100.0); MEAN PLATELET VOLUME 10.1 fL (7.4-10.4); MONOCYTES 9.2 % (2-11); NEUTROPHILS 51.1 % (40-80); PLATELET COUNT 477 10x3/uL (130-400); RBC 3.99 10x6/uL (4.00-5.40); RDW 15.4 % (11.5-14.5)
[2018-06-10 06:12] LABS: ALBUMIN 2.1 g/dL (3.4-5.0); ALKALINE PHOSPHATASE 125 U/L (46-116); ALT (SGPT) 38 U/L (10-68); BILIRUBIN - TOTAL 0.35 mg/dL (0.2-1.3); CALC OSMOLALITY 280 mosm/kg (275-300); CALCIUM 8.2 mg/dL (8.5-10.1); CHLORIDE - SERUM 107 mmol/L (98-107); CREATININE - SERUM 0.6 mg/dL (0.6-1.3); GLUCOSE 107 mg/dL (74-106); POTASSIUM - SERUM 3.2 mmol/L (3.5-5.1); PROTEIN - SERUM 6.8 g/dL (6.4-8.2); SODIUM 143 mmol/L (136-145); UREA NITROGEN 2 mg/dL (7-18); eGFR NON AFRICAN AMERICAN > 90 mL/min (90-120)
[2018-06-10 08:36] VITALS: BP 153/72
--- NOTE | 2018-06-10 09:40 | NUR ---
PT RESTING QUIETLY IN BED. NO ACUTE DISTRESS NOTED AT THIS TIME. PT REMAINS NPO PENDING PROCEDURE. IV TO RIGHT FOREARM WITH NS @ 100ML/HR, ZOFRAN @ 4.7ML/HR INFUSING VIA PUMP. SITE WITHOUT REDNESS OR EDEMA. DENIES PAIN AT THIS TIME. CL WITHIN REACH. ENCOURAGED TO CALL WITH NEEDS. CONTINUE POC
[2018-06-10 12:07] VITALS: BP 158/84
--- NOTE | 2018-06-10 13:35 | NUR ---
NUTRITION F/U PT HAS BEEN NPO THIS AM FOR PROCEDURE. PT DIET TO RESUME. GOOD PO INTAKE PRIOR TO NPO STATUS. RD FOLLOWING
--- NOTE | 2018-06-10 15:59 | NUR ---
PIV TO RIGHT FOREARM IS TENDER AND PT REQUESTS IV TO BE REMOVED. PIV REMOVED WITH CATHETER TIP NTACT. DRESSING APPLIED. PT IS REFUSING NEW IV. PT DENIES FURTHER NEEDS AT THIS TIME. BED IS IN THE LOWEST POSITION. CALL LIGHT AND BED SIDE TABLE ARE WITHIN REACH. SIDE RAILS X 2.
[2018-06-10 16:45] VITALS: BP 141/80
[2018-06-10 20:34] VITALS: BP 182/91
[2018-06-11 05:15] VITALS: BP 130/77
[2018-06-11 05:59] LABS: ALBUMIN 2.1 g/dL (3.4-5.0); ALKALINE PHOSPHATASE 121 U/L (46-116); ALT (SGPT) 34 U/L (10-68); BILIRUBIN - TOTAL 0.35 mg/dL (0.2-1.3); CALC OSMOLALITY 279 mosm/kg (275-300); CALCIUM 8.2 mg/dL (8.5-10.1); CHLORIDE - SERUM 107 mmol/L (98-107); CREATININE - SERUM 0.6 mg/dL (0.6-1.3); GLUCOSE 116 mg/dL (74-106); MAGNESIUM - SERUM 1.8 mg/dL (1.8-2.4); POTASSIUM - SERUM 3.3 mmol/L (3.5-5.1); PROTEIN - SERUM 6.9 g/dL (6.4-8.2); SODIUM 142 mmol/L (136-145); UREA NITROGEN 2 mg/dL (7-18); eGFR NON AFRICAN AMERICAN > 90 mL/min (90-120)
[2018-06-11 07:13] LABS: BASOPHILS 0.2 % (0-2); EOSINOPHILS 2.9 % (0-7); HEMATOCRIT 35.4 % (36.0-48.0); HEMOGLOBIN 11.5 g/dL (12-16); IMMATURE GRANULOCYTES 0.4 % (0-5); LYMPHOCYTES 33.6 % (15-50); MCH 28.1 pg (26.0-34.0); MCHC 32.5 g/dL (31.0-37.0); MCV 86.6 fL (80.0-100.0); MEAN PLATELET VOLUME 9.9 fL (7.4-10.4); MONOCYTES 7.7 % (2-11); NEUTROPHILS 55.2 % (40-80); PLATELET COUNT 446 10x3/uL (130-400); RBC 4.09 10x6/uL (4.00-5.40); RDW 15.7 % (11.5-14.5); WBC 5.6 10x3/uL (4.8-10.8)
--- NOTE | 2018-06-11 07:30 | NUR ---
PT RESTING QUIETLY IN BED WATCHING TV. NO ACUTE DISTRESS NOTED. DENIES PAIN AT THIS TIME. IV TO LEFT HAND WITH NS @ 100ML/HR INFUSING VIA PUMP. SITE WITHOUT REDNESS OR EDEMA. DENIES NAUSEA AT THIS TIME. REMAINS ON CONTACT ISOLATION. DENIES FURTHER NEEDS AT THIS TIME. CL WITHIN REACH. ENCOURAGED TO CALL WITH NEEDS. CONTINUE POC
[2018-06-11 08:31] VITALS: BP 134/80
[2018-06-11 13:02] VITALS: BP 127/88
[2018-06-11] MEDS ORDERED: MIRALAX17 GM PO (13:23)
[2018-06-11] MEDS ORDERED: ZOFRAN4 MG PO (13:24)
[2018-06-11] MEDS ORDERED: ZYVOX600 MG PO (13:27)
[2018-06-11] MEDS ORDERED: ULTRAM50 MG PO (13:31)
--- NOTE | 2018-06-11 14:16 | MORECARE ---
CASE MANAGEMENT DISCHARGE SUMMARY PATIENT: MIC RIVERA UNIT: [id number] ADM DATE: 06/03/18 AGE: 52 : 65 SEX: F ROOM/BED: D.2225 AUTHOR: FISH,DOC PHYSICIAN: REFERRING PHYSICIAN: GIOVANNY HOLDEN DO DATE OF SERVICE: 06/11/18 Discharge Plan Patient Name: MIC RIVERA Facility: [facility]:[place] : 1965 Planned Disposition: Home with Home Health Anticipated Discharge Date: Discharge Date: Expected LOS: Initial Reviewer: [email or web address] Initial Review Date: 06/02/2018 Generated: 06/11/18 3:16 pm Comments DCP- Discharge Planning Updated by [email or web address]: Radha Joshi on 06/09/18 11:[address] Met with patient concerning discharge planning, she is alone in the room. She states she would like to go home with [facility] if able. She has been ambulating with the in the halls. CM will continue to follow and assist with discharge planning/needs. DCP- Discharge Planning Updated by [email or web address]: Merly Prasad on 06/02/18 2:[address] CM spoke with patient regarding LTAC transfer to [facility] (patient choice). Patient Consent signed for same and placed on chart. CM spoke with Melania Schulte Intake with [facility] regarding insurance determination for patient. Melania states that the patient's insurance carrier denied admission to [facility] LT[facility]. This was relayed to the patient, daughter at bedside, patient's nurse and ER MD. Patient questions "now what will do?" Tearful and shaking. Assurance given that we are in contact with Dr. Holden. Patient requests an appointment with Dr. Wolff, [facility]. CM faxed related information to Fax #[phone]. Faxed referral intake form was placed on chart. Also called the office, left a message for same and provided patient contact information. Prior to this admission, HHS was arranged with [facility], [facility], [facility], [facility]. CM will follow and assist with dc plans. External Providers External Provider: [facility] Next Contact Date: Service Request Date: Service Type: Resolution: Reviewer: Comments: Coverage Notice Reviewer: [id number] - Merly Villarreallroy Notice Issued Date-Time: 06/02/2018 13:00 Notice Type: Patient Choice Letter Notice Delivered To: Family Member Relationship to Patient: Daughter Meat Products Demonstrator Name: Delivery Method: HAND - Hand Delivered Katie Days: Prior Verbal Notification: Recipient Understood Notice: Recipient Signature: Med Rec Note Co-signed by Attending: Coverage Notice Comment: Contact with [facility] Reviewer: [email or web address] - Radha Joshi Notice Issued Date-Time: 06/09/2018 12:54 Notice Type: Patient Choice Letter Notice Delivered To: Patient Relationship to Patient: Meat Products Demonstrator Name: Delivery Method: HAND - Hand Delivered Katie Days: Prior Verbal Notification: Recipient Understood Notice: Yes Recipient Signature: Yes Med Rec Note Co-signed by Attending: Coverage Notice Comment: CHU for [facility] and [facility] if needed Last DP export: 06/09/18 12:00 p Patient Name: MIC RIVERA Page [id number] at 1416 All edits/amendments must be made on the electronic document DICTATION DATE: 06/11/18 1415 BOARDER STEAM: NICHELLE 06/11/18 1415 RPT#: [id number] DC DATE: STATUS: ADM IN [facility] [address] [place] [address] END OF REPORT
--- NOTE | 2018-06-11 14:57 | MORECARE ---
CASE MANAGEMENT DISCHARGE SUMMARY PATIENT: MIC RIVERA UNIT: [id number] ADM DATE: 06/03/18 AGE: 52 : 65 SEX: F ROOM/BED: D.2225 AUTHOR: FISH,DOC PHYSICIAN: REFERRING PHYSICIAN: GIOVANNY HOLDEN DO DATE OF SERVICE: 06/11/18 Discharge Plan Patient Name: MIC RIVERA Facility: [facility]:[place] : 1965 Planned Disposition: Home with Home Health Anticipated Discharge Date: Discharge Date: Expected LOS: Initial Reviewer: [email or web address] Initial Review Date: 06/02/2018 Generated: 06/11/18 3:56 pm Comments DCP- Discharge Planning Updated by [email or web address]: Radha Joshi on 06/11/18 1:[address] I called patient's pharmacy and she states that they have ran the Linezolid with her insurance and she has 0 copay. The patient will get this at her pharmacy. She is in agreement to discharging home today with home health. I called [facility] and spoke to Debbi, they will see her on Thursday. Clinical faxed to [facility]. CM will continue to follow and assist with discharge planning/needs. DCP- Discharge Planning Updated by [id number]: Radha Joshi on 06/09/18 11:[address] Met with patient concerning discharge planning, she is alone in the room. She states she would like to go home with [facility] if able. She has been ambulating with the in the halls. CM will continue to follow and assist with discharge planning/needs. DCP- Discharge Planning Updated by [id number]: Merly Prasad on 06/02/18 2:[address] CM spoke with patient regarding LTAC transfer to [facility] (patient choice). Patient Consent signed for same and placed on chart. CM spoke with Melania Schulte Intake with [facility] regarding insurance determination for patient. Melania states that the patient's insurance carrier denied admission to [facility]. This was relayed to the patient, daughter at bedside, patient's nurse and ER MD. Patient questions "now what will do?" Tearful and shaking. Assurance given that we are in contact with Dr. Holden. Patient requests an appointment with Dr. Wolff, [facility]. CM faxed related information to Fax #[phone]. Faxed referral intake form was placed on chart. Also called the office, left a message for same and provided patient contact information. Prior to this admission, HHS was arranged with [facility], [facility]PN Infusion with [facility], [facility], [facility]. CM will follow and assist with dc plans. Coverage Notice Reviewer: [id number] - Merly Prasad Notice Issued Date-Time: 06/02/2018 13:00 Notice Type: Patient Choice Letter Notice Delivered To: Family Member Relationship to Patient: Daughter Manager Primary Name: Delivery Method: HAND - Hand Delivered Katie Days: Prior Verbal Notification: Recipient Understood Notice: Recipient Signature: Med Rec Note Co-signed by Attending: Coverage Notice Comment: Contact with [facility] Reviewer: [id number] - Radha Joshi Notice Issued Date-Time: 06/09/2018 12:54 Notice Type: Patient Choice Letter Notice Delivered To: Patient Relationship to Patient: Manager Primary Name: Delivery Method: HAND - Hand Delivered Katie Days: Prior Verbal Notification: Recipient Understood Notice: Yes Recipient Signature: Yes Med Rec Note Co-signed by Attending: Coverage Notice Comment: CHU for [facility] and [facility] if needed Last DP export: 06/11/18 1:16 p Patient Name: MIC RIVERA Page [id number] at 1457 All edits/amendments must be made on the electronic document DICTATION DATE: 06/11/181455 FILING WRITER: NICHELLE 06/11/18 1456 RPT#: [id number] DC DATE: STATUS: ADM IN [address] [place] [address] END OF REPORT
--- NOTE | 2018-06-11 15:13 | TEE ---
PATIENT:MIC RIVERA MEDICAL RECORD: [id number] LOCATION:D.[facility] [place] AGE OF PATIENT: 52 ADMISSION DATE: 06/03/18 SEX: F REFERRING PHYSICIAN: INTERPRETING PHYSICIAN: ROMY MALDONADO MD TRANSESOPHAGEAL ECHOCARDIOGRAM Date: 06/10/18 ELVIA CHARGE Y INDICATIONS: R/O VEGETATION PREMEDICATIONS: PATIENT'S RESPONSE PROCEDURE DOPPLER MEASUREMENTS: LVIT LA PA 84 RA LVOT 108 RVOT 61 Asc. Ao 144 AV Gradient Peak 8.3 AV Mean 4.2 AV Area 1.8 MV Gradient Peak 5.4 MV Mean 2.5 MV Area INTERPRETATION: Doppler: 2-D: COLOR FLOW DOPPLER NORMAL SALINE STUDY: MISCELLANOUS: DIAGNOSIS: PLAN: Customer Operations Specialist:1 Dr. Maldonado Butcher Supervisor: Walker RICHTER COMMENTS: DATE OF SERVICE: 06/10/2018 PROCEDURE: Transesophageal echo evaluate for endocarditis. IV conscious sedation was per anesthesia. FINDINGS: 1. Left ventricular chamber size is within normal limits. Left ventricular systolic function is normal. Overall ejection fraction estimated 60%. TRANSESOPHAGEAL ECHOCARDIOGRAM REPORT [id number] MIC RIVERA 2. Left atrium, right atrium, and right ventricular chamber sizes are within normal limits. 3. Valvular structures have normal structure and motion. No evidence of vegetative endocarditis. 4. Doppler interrogation reveals trace mitral regurgitation, trace aortic insufficiency. No other valvular insufficiency or stenosis. 5. No evidence of pericardial effusion or left ventricular thrombus. OVERALL IMPRESSION: No evidence of vegetative endocarditis. TRANSINT:[id number] Voice Confirmation ID: [id number] DOCUMENT ID: [id number] at 1513 CC: [id number] DICTATION DATE: 06/10/18 1252 COOLER SERVICER: 06/10/18 2331 ADM IN [place] [id number] [place] [address]
--- NOTE | 2018-06-11 16:05 | NUR ---
PT IV D/C'D FOR DISCHARGE HOME FROM LEFT HAND. CATH INTACT. DISCHARGE INSTRUCTIONS PROVIDED AND DISCUSSED. PRESCRIPTION PROVIDED FOR ULTRAM ALONG WITH DISCHARGE PAPERWORK AND APPOINTMENTS. PT AND FAMILY DENIES QUESTIONS AT THIS TIME. PT TAKEN OUT VIA W/C TO PRIVATE VEHICLE WITH PERSONAL BELONGINGS.
== END 2018-06-11 16:15 | disposition home health service (06) | DRG 314 ==
LOC: D.ER 09:46 → D.EDHOLD 12:25 → D.MS 12:25 → OBSVTIME 12:26 → D.MS 13:51
PROVIDERS: Emergency Medicine; Internal Medicine Gastroenterology; ADMIT Family Medicine; ATTEND Family Medicine
DX: T80.211A Bloodstream infection due to central venous catheter, initial encounter (principal); A41.9 Sepsis, unspecified organism; K85.90 Acute pancreatitis without necrosis or infection, unspecified; N39.0 Urinary tract infection, site not specified; F17.213 Nicotine dependence, cigarettes, with withdrawal; E44.0 Moderate protein-calorie malnutrition; R10.9 Unspecified abdominal pain; E11.9 Type 2 diabetes mellitus without complications; I10 Essential (primary) hypertension; E78.5 Hyperlipidemia, unspecified; E11.43 Type 2 diabetes mellitus with diabetic autonomic (poly)neuropathy; K31.84 Gastroparesis; D64.9 Anemia, unspecified; I11.0 Hypertensive heart disease with heart failure; I50.9 Heart failure, unspecified; I25.10 Atherosclerotic heart disease of native coronary artery without angina pectoris

== ENCOUNTER 2018-08-02 18:48 | Emergency (ER) | payer MEDICAID ==
[~2018-08-02] VITALS: Ht 157.5 cm; Wt 70.3 kg
[~2018-08-02 18:48] MED LIST changes: +MIRALAX17 GM PO; +SEROQUEL100 MG PO; +ULTRAM50 MG PO; +ZOFRAN4 MG PO; +ZYVOX600 MG PO
[2018-08-02 19:28] VITALS: Ht 157.5 cm; Wt 70.3 kg
[2018-08-02 20:02] LABS: BASOPHILS 0.3 % (0-2); EOSINOPHILS 1.9 % (0-7); HEMATOCRIT 39.7 % (36.0-48.0); HEMOGLOBIN 13.9 g/dL (12-16); IMMATURE GRANULOCYTES 0.2 % (0-5); LYMPHOCYTES 43.9 % (15-50); MCH 30.5 pg (26.0-34.0); MCV 87.3 fL (80.0-100.0); MEAN PLATELET VOLUME 10.2 fL (7.4-10.4); MONOCYTES 6.3 % (2-11); NEUTROPHILS 47.4 % (40-80); RBC 4.55 10x6/uL (4.00-5.40); RDW 15.1 % (11.5-14.5); WBC 8.8 10x3/uL (4.8-10.8)
[2018-08-02 20:03] LABS: PLATELET COUNT 298 10x3/uL (130-400)
[2018-08-02 20:14] LABS: ALBUMIN 3.8 g/dL (3.4-5.0); ALKALINE PHOSPHATASE 119 U/L (46-116); ALT (SGPT) 48 U/L (10-68); AMYLASE - SERUM 35 U/L (25-115); BILIRUBIN - TOTAL 0.38 mg/dL (0.2-1.3); CALCIUM 9.5 mg/dL (8.5-10.1); CARBON DIOXIDE 20.4 mmol/L (21.0-32.0); CHLORIDE - SERUM 102 mmol/L (98-107); CREATININE - SERUM 0.6 mg/dL (0.6-1.3); LIPASE 208 U/L (73-393); POTASSIUM - SERUM 4.9 mmol/L (3.5-5.1); PROTEIN - SERUM 8.1 g/dL (6.4-8.2); SODIUM 138 mmol/L (136-145); UREA NITROGEN 12 mg/dL (7-18); eGFR NON AFRICAN AMERICAN > 90 mL/min (90-120)
[2018-08-02 20:18] LABS: CALC OSMOLALITY 287 mosm/kg (275-300); GLUCOSE 308 mg/dL (74-106); TROPONIN-I < 0.017 ng/mL (0.000-0.060)
[2018-08-02 21:43] LABS: HCG SERUM NEGATIVE (NEGATIVE)
[2018-08-02 21:53] LABS: APPEARANCE CLEAR (CLEAR); BILIRUBIN NEGATIVE (NEGATIVE); COLOR YELLOW (YELLOW); GLUCOSE 1000 mg/dL (NEGATIVE); KETONE SMALL mg/dL (NEGATIVE); NITRITE NEGATIVE (NEGATIVE); PROTEIN NEGATIVE (NEGATIVE); UROBILINOGEN NORMAL (NORMAL)
[2018-08-02 21:54] LABS: EPITHELIAL CELLS OCC /hpf (0-5); RED CELLS - URINE 0-5 /hpf (0-5); WHITE CELLS - URINE 0-5 /hpf (0-5)
[2018-08-02 21:55] LABS: BACTERIA FEW /hpf (NONE SEEN); HCG URINE NEGATIVE (NEGATIVE)
[2018-08-02 21:58] LABS: UDS - AMPHET NEGATIVE QUAL (NEGATIVE); UDS - BARB NEGATIVE QUAL (NEGATIVE); UDS - BENZO NEGATIVE QUAL (NEGATIVE); UDS - COCAINE NEGATIVE QUAL (NEGATIVE); UDS - OPIATE POSITIVE QUAL (NEGATIVE); UDS - PCP NEGATIVE QUAL (NEGATIVE); UDS - THC NEGATIVE QUAL (NEGATIVE)
[2018-08-02] MEDS ORDERED: CARAFATE1 G/10 ML PO (23:27)
[2018-08-02 23:55] VITALS: BP 140/79
== END 2018-08-02 23:57 | disposition home or self-care (01) ==
LOC: D.ER 18:48
PROVIDERS: Emergency Medicine; Family Medicine
DX: R10.9 Unspecified abdominal pain (principal); R11.2 Nausea with vomiting, unspecified